=== PATIENT | male | born 1945 | race Caucasian/White ===

== ENCOUNTER 2018-06-21 20:33 | Emergency (ER) | payer MEDICARE, OTHER ==
--- NOTE | 2018-06-22 00:34 | ER Document Report ---
ED Medical Screen (RME) - General Chief Complaint: Abdominal Pain Stated Complaint: ABDOMINAL PAIN, DIFFICULTY BREATHING Time Seen by Provider: 06/22/18 00:23 Primary Care Provider: JANA HERNANDEZ DO [Primary Care Provider] - Follow up as needed Notes: 73-year-old male, chief complaint of mid to lower abdominal pain on both sides. He also had a fever of 100.6 at home. In addition to this he has had a cough which he has been trying to get over for 1 month. He has had an appendectomy, no other abdominal surgeries. TRAVEL OUTSIDE OF THE [place] IN LAST 30 DAYS: No - Related Data Allergies/Adverse Reactions: No Known Allergies Allergy (Unverified 06/21/18 20:35) Physical Exam - Vital signs Vitals: Temp Pulse Resp BP Pulse Ox 99.1 F 97 20 142/93 H 95 06/21/18 21:02 06/21/18 21:02 06/21/18 21:02 06/21/18 21:02 06/21/18 21:02 - Abdominal Tenderness: Tender - Mid to lower abdominal tenderness bilaterally. No guarding or rigidity. Course - Re-evaluation Re-evalutation: Patient has generalized mid to lower abdominal tenderness, no rigidity or overt guarding. CAT scan will be performed. Workup pending. Patient does not appear toxic. I have greeted and performed a rapid initial assessment of this patient. A comprehensive ED assessment and evaluation of the patient, analysis of test results and completion of the medical decision making process will be conducted by additional ED providers. - Vital Signs Vital signs: Temp Pulse Resp BP Pulse Ox 99.1 F 97 20 142/93 H 95 06/21/18 21:02 06/21/18 21:02 06/21/18 21:02 06/21/18 21:02 06/21/18 21:02 Doctor's Discharge - Discharge Referrals: JANA HERNANDEZ DO [Primary Care Provider] - Follow up as needed
[2018-06-22 01:21] LABS: ABSOLUTE LYMPHOCYTES (AUTO) 0.6 10^3/uL (0.5-4.7); ABSOLUTE MONOCYTES (AUTO) 0.7 10^3/uL (0.1-1.4); ABSOLUTE NEUT (AUTO) 9.3 10^3/uL (1.7-8.2); BASOPHILS % (AUTO) 0.3 % (0-2); EOSINOPHILS % (AUTO) 0.1 % (0-6); HEMATOCRIT 41.6 % (37.9-51.0); HEMOGLOBIN 14.6 g/dL (13.5-17.0); LYMPHOCYTES % (AUTO) 5.6 % (13-45); MEAN CORPUSCULAR HEMOGLOBIN 30.5 pg (27.0-33.4); MEAN CORPUSCULAR HGB CONC 35.1 g/dL (32.0-36.0); MEAN CORPUSCULAR VOLUME 87 fl (80-97); MONOCYTES % (AUTO) 6.3 % (3-13); PLATELET COUNT 156 10^3/uL (150-450); RED BLOOD COUNT 4.79 10^6/uL (4.35-5.55); RED CELL DISTRIBUTION WIDTH 14.3 % (11.5-14.0); SEGMENTED NEUTROPHILS % (AUTO) 87.7 % (42-78); TOTAL CELLS COUNTED % (AUTO) 100 %; WHITE BLOOD COUNT 10.5 10^3/uL (4.0-10.5)
[2018-06-22 01:50] LABS: ALANINE AMINOTRANSFERASE 39 U/L (21-72); ALBUMIN 3.7 g/dL (3.5-5.0); ALKALINE PHOSPHATASE 94 U/L (38-126); ANION GAP 9 (5-19); ASPARTATE AMINO TRANSFERASE 33 U/L (17-59); BILIRUBIN,DIRECT 0.3 mg/dL (0.0-0.4); BLOOD UREA NITROGEN 21 mg/dL (7-20); CALCIUM 9.6 mg/dL (8.4-10.2); CARBON DIOXIDE 25 mmol/L (22-30); CHLORIDE 95 mmol/L (98-107); GLUCOSE 106 mg/dL (75-110); LIPASE 95.8 U/L (23-300); POTASSIUM 4.6 mmol/L (3.6-5.0); SODIUM 129.1 mmol/L (137-145); TOTAL PROTEIN 6.5 g/dL (6.3-8.2)
--- NOTE | 2018-06-22 02:13 | RADIOLOGY REPORT (SQ) ---
CLINICAL HISTORY: cough x1 month, fever COMPARISON: None. TECHNIQUE: XR CHEST 2 VIEWS 06/22/2018 12:31 AM CDT FINDINGS: Cardiac silhouette is normal in size. Lungs are clear without consolidation, atelectasis, mass or edema. There is no pleural effusion. There is no pneumothorax. There are no acute osseous findings. IMPRESSION: Clear lungs.
--- NOTE | 2018-06-22 02:22 | RADIOLOGY REPORT (SQ) ---
CT abdomen and pelvis with contrast on 06/22/2018 at 1:58 AM CLINICAL INDICATION: Lower abdominal pain, fever TECHNIQUE: Multiple axial images are obtained throughout the abdomen and pelvis following the administration of IV contrast, 100 mL of Omnipaque 350 contrast was administered intravenously without complication. This exam was performed according to our departmental dose-optimization program, which includes automated exposure control, adjustment of the mA and/or kV according to patient size and/or use of iterative reconstruction technique. Total DLP is 835.08 mGy*cm. COMPARISON: None FINDINGS: Abdomen: Emphysematous changes are noted in the lung bases. There is mild linear atelectasis or scarring in the lung bases. Minimal right-sided gynecomastia is noted. The solid abdominal organs are unremarkable. Vascular calcifications are noted. There is no abdominal adenopathy. There is no free fluid or free air within the abdomen. GI tract is relatively fluid filled that may be related to a gastroenteritis. The abdominal portion of the GI tract is otherwise unremarkable. Pelvis: There is no free fluid in the pelvis. The appendix is not visualized but no pericecal inflammatory changes are noted. Pelvic portion of the GI tract is otherwise unremarkable. There is no pelvic adenopathy. Degenerative changes are noted in the spine. No acute bony abnormality is noted. IMPRESSION: 1. Relatively fluid filled GI tract that may be related to a gastroenteritis. 2. Otherwise no acute abnormality.
[2018-06-22] MEDS ORDERED: MORPHINE SULFATE 10 MG/ML INJ IV ONE (03:44)
[2018-06-22] MEDS ORDERED: ONDANSETRON HCL INJ/PF 4 MG/2 ML SDV IV ONE (03:44)
[2018-06-22] MEDS ORDERED: NORMAL SALINE 1000 ML 1,000 ML IV ONE (03:45)
[2018-06-22 04:35] LABS: APPEARANCE,URINE CLEAR; BILIRUBIN,URINE NEGATIVE (NEGATIVE); COLOR,URINE YELLOW; GLUCOSE, URINE NEGATIVE (NEGATIVE); KETONES,URINE NEGATIVE (NEGATIVE); LEUKOCYTE ESTERASE,URINE NEGATIVE (NEGATIVE); NITRITE,URINE NEGATIVE (NEGATIVE); PROTEIN,URINE NEGATIVE (NEGATIVE); URINE SPECIFIC GRAVITY 1.051; UROBILINOGEN,URINE NEGATIVE mg/dL (<2.0)
--- NOTE | 2018-06-22 05:30 | ER Document Report ---
ED GI/ - General Chief Complaint: Abdominal Pain Stated Complaint: ABDOMINAL PAIN, DIFFICULTY BREATHING Time Seen by Provider: 06/22/18 00:23 Primary Care Provider: JANA HERNANDEZ DO [NO LOCAL MD] - Follow up as needed TRAVEL OUTSIDE OF THE [place] IN LAST 30 DAYS: No - HPI Notes: 06/22/18 05:27 Patient complaints of body aches and joint pain that started 3 days ago. Patient was feeling better until 2 days ago when he developed mid to upper abdominal pain. Denies diarrhea. Patient reports nausea and vomiting 2 times today. She reports decreased appetite but until tonight has been tolerating p.o.. Patient reports that the abdominal pain is sharp and stabbing in nature and has remained constant. Also reports chills. Patient states that he has also been battling cough for the past month which he saw his primary care provider for and was placed on 2 different antibiotics and a steroid. He states that he did not feel much different after receiving his medications. - Related Data Allergies/Adverse Reactions: No Known Allergies Allergy (Unverified 06/21/18 20:35) Past Medical History - Social History Smoking Status: Former Smoker Chew tobacco use (# tins/day): No Frequency of alcohol use: Occasional Drug Abuse: None Lives with: Spouse/Significant other Family History: None Patient has suicidal ideation: No Patient has homicidal ideation: No - Past Medical History Cardiac Medical History: Reports: Hx Hypercholesterolemia, Hx Hypertension Renal/ Medical History: Denies: Hx Peritoneal Dialysis Skin Medical History: Reports None Past Surgical History: Reports: Hx Appendectomy, Hx Tonsillectomy Review of Systems - Review of Systems Constitutional: Chills, Fever, Malaise EENT: Nose congestion Cardiovascular: No symptoms reported Respiratory: Cough Gastrointestinal: Abdominal pain, Nausea, Vomiting Genitourinary: No symptoms reported Male Genitourinary: No symptoms reported Musculoskeletal: Joint pain Skin: No symptoms reported Hematologic/Lymphatic: No symptoms reported Neurological/Psychological: No symptoms reported Physical Exam - Vital signs Vitals: Temp Pulse Resp BP Pulse Ox 99.1 F 97 20 142/93 H 95 06/21/18 21:02 06/21/18 21:02 06/21/18 21:02 06/21/18 21:02 06/21/18 21:02 Interpretation: Normal - General In distress: Moderate - Respiratory Respiratory status: No respiratory distress Chest status: Nontender Breath sounds: Normal Chest palpation: Normal - Cardiovascular Rhythm: Regular Heart sounds: Normal auscultation - Abdominal Inspection: Normal Distension: No distension Bowel sounds: Hyperactive Tenderness: Tender - Tender noted throughout entire abdomen, very nonspecific Organomegaly: No organomegaly - Skin Skin Temperature: Warm Skin Moisture: Dry Skin Color: Normal Skin Turgor: Elastic Course - Re-evaluation Re-evalutation: 06/22/18 05:36 After reassessment patient does report that his pain level has decreased to about a 2 out of 5. Patient requesting a beverage and saltine crackers. Abdomen is mildly tender throughout. Pt. denies chest pain or shortness of breath. P.O. challenge initiated. 06/22/18 06:32 Patient was able to tolerate p.o. challenge without increased abdominal pain or vomiting. Blood work and radiology tests discussed with patient and by myself and Greg Varner PA-C. Discussed with patient diagnosis of gastr oenteritis, will prescribe Zofran and Pepcid. Patient okay taking Tylenol [id number] at home for discomfort. Advised to start with clear liquid diet then advance to a bland diet and a regular diet as tolerated. Strict return precautions given to include severe abdominal pain, abdominal swelling, fever, rectal bleeding, uncontrollable vomiting, inability to tolerate p.o. and worsening of symptoms. Patient and verbalized understanding and agrees with plan. Patient feels comfortable being discharged. Per further discussion reports that other members of the family have recently had GI symptoms similar to his. 06/22/18 06:52 Patient did have left bundle branch block on EKG. Reassessment patient verified that he has not been having any chest pain chest pressure or discomfort. Reports that all of his discomfort is in the abdomen. - Vital Signs Vital signs: Temp Pulse Resp BP Pulse Ox 99.1 F 97 20 142/93 H 95 06/21/18 21:02 06/21/18 21:02 06/21/18 21:02 06/21/18 21:02 06/21/18 21:02 - Laboratory Result Diagrams: 06/22/18 00:50 06/22/18 00:50 Laboratory results interpreted by me: 06/22/18 06/22/18 06/22/18 00:50 00:50 04:15 RDW 14.3 H Seg Neutrophils % 87.7 H Lymphocytes % 5.6 L Absolute Neutrophils 9.3 H Sodium 129.1 L Chloride 95 L BUN 21 H Creatinine 1.29 H Est GFR (Non-Af Amer) 55 L Urine Blood SMALL H - Diagnostic Test Radiology reviewed: Reports reviewed Radiology results interpreted by me: 06/22/18 05:42 Chest x-ray unremarkable, lungs are clear without consolidation or atelectasis, mass or edema. No pleural effusion or pneumonia thorax noted. 06/22/18 05:44 CT of the abdomen showed no free fluid in the pelvis and although the appendix was not visualized there were no pericecal inflammatory changes per radiology read. CT of the abdomen showed relatively fluid-filled GI tract that may be related to gastroenteritis. - EKG Interpretation by Me Additional EKG results interpreted by me: 06/22/18 05:39 EKG shows a normal sinus rhythm with a left bundle branch block, rate is 96, OK is 148, QRS is 122, QT 392, QTc 496. No ST elevation. Discharge - Discharge Clinical Impression: Gastroenteritis Condition: Stable Disposition: HOME, SELF-CARE Instructions: Abdominal Pain ([facility]), Antinausea Medication ([facility]), Intravenous (IV) Fluids ([facility]), Vomiting ([facility]), Gastroenteritis (adult) ([facility]) Additional Instructions: Today you are being diagnosed with gastroenteritis. Initially while you are feeling ill start out with a clear liquid diet. Take Zofran as needed for nausea. Take Pepcid as prescribed. Your symptoms may last a few days. If they become worse and include but not limited to severe abdominal pain, vomiting, rectal bleeding, abdominal swelling, fever, or any new or worsening symptoms please return to the emergency department for further evaluation. Please avoid NSAIDs such as ibuprofen, Motrin, Aleve, etc. as NSAIDs can upset your stomach. Prescriptions: Famotidine [Pepcid 20 mg Tablet] 20 mg PO DAILY #12 tablet Ondansetron [Zofran Odt 4 mg Tablet] 1 tab PO Q4H PRN #15 tab.rapdis PRN Reason: For Nausea/Vomiting Referrals: JANA HERNANDEZ DO [NO LOCAL MD] - Follow up as needed
[2018-06-22 07:05] VITALS: BP 151/70
--- NOTE | 2018-06-23 11:02 | EKG REPORT ---
SEVERITY:- ABNORMAL ECG - SINUS RHYTHM LEFT BUNDLE BRANCH BLOCK : Confirmed by: Anshul Drake 23-Jun-2018 11:01:28
== END 2018-06-22 07:34 | disposition home or self-care (01) ==
LOC: ER 20:33
DX: K52.9 Noninfective gastroenteritis and colitis, unspecified (principal); R10.10 Upper abdominal pain, unspecified; M79.10 Myalgia, unspecified site; R50.9 Fever, unspecified; R53.81 Other malaise; E78.00 Pure hypercholesterolemia, unspecified; I10 Essential (primary) hypertension
CPT/HCPCS: 93005; 99284; 96361; 96374; 96375; 36415; 87040; 83690; 85025; 80053; 81001; 71046; 74177; 93010; J2270; J2405; J7030

== ENCOUNTER 2018-07-01 21:31 | Emergency (ER) | payer OTHER, MEDICARE ==
[2018-07-01] MEDS ORDERED: IPRATROPIUM/ALBUTEROL 0.5-2.5 MG/3 ML AMPUL NEB ONE ×2 (22:22→23:09)
[2018-07-01] MEDS ORDERED: METHYLPREDNISOLONE INJ 125 MG/2 ML SDV IV ONE (22:30)
[2018-07-01] MEDS ORDERED: ALBUTEROL SULFATE 0.083% NEB 2.5 MG/3 ML AMPUL NEB ONE (22:31)
--- NOTE | 2018-07-01 22:35 | ER Document Report ---
ED General - General Chief Complaint: Shortness Of Breath Stated Complaint: DIFFICULTY BREATHING Time Seen by Provider: 07/01/18 22:20 Primary Care Provider: CLEMENT PARSON DO [Primary Care Provider] - Follow up as needed Notes: Patient is a 73-year-old male presents with complaint of difficulty breathing. He says he denies her having some wheezing difficulty breathing. He says he quit smoking 3 months ago and since then he has had several episodes like this where he has difficulty breathing and sometimes has come to the hospital. No fevers. No vomiting. No chest pain. No leg pain or swelling. No other c omplaints at this time. Patient has history of hypertension, high cholesterol, and back problems. TRAVEL OUTSIDE OF THE [place] IN LAST 30 DAYS: No - Related Data Allergies/Adverse Reactions: No Known Allergies Allergy (Unverified 06/21/18 20:35) Past Medical History - Social History Smoking Status: Former Smoker Frequency of alcohol use: None Drug Abuse: None Family History: None - Past Medical History Cardiac Medical History: Reports: Hx Hypercholesterolemia, Hx Hypertension Renal/ Medical History: Denies: Hx Peritoneal Dialysis Past Surgical History: Reports: Hx Appendectomy, Hx Tonsillectomy Review of Systems - Review of Systems Notes: My Normal Review Basic REVIEW OF SYSTEMS: CONSTITUTIONAL : Denies fever, chills, or sweats. Denies recent illness. EENT: Denies eye, ear, throat, or mouth pain or symptoms. Denies nasal or sinus congestion. CARDIOVASCULAR: Denies chest pain. RESPIRATORY: Wheezing, difficulty breathing, cough GASTROINTESTINAL: Denies abdominal pain. Denies nausea, vomiting, or diarrhea. MUSCULOSKELETAL: Denies neck or back pain or joint pain or swelling. SKIN: Denies rash or skin lesions. NEUROLOGICAL: Denies altered mental status or loss of consciousness. Denies headache. Denies weakness or paralysis or loss of use of either side. Denies problems with gait or speech. Denies sensory or motor loss. ALL OTHER SYSTEMS REVIEWED AND NEGATIVE. Physical Exam - Vital signs Vitals: Temp Pulse Resp BP Pulse Ox 98.2 F 113 H 24 H 147/77 H 94 07/01/18 21:48 07/01/18 21:48 07/01/18 21:48 07/01/18 21:48 07/01/18 21:48 - Notes Notes: General Appearance: Well nourished, alert, cooperative, mild acute distress, no obvious discomfort. Vitals: reviewed, See vital signs table. Head: no swelling or tenderness to the head Eyes: PERRL, EOMI, Conjuctiva clear Mouth: No decreasd moisture Throat: No tonsillar inflammation, No airway obstruction, No lymphadenopathy Neck: Supple, no neck tenderness, No thyromegaly Lungs: Few's wheezing, No rales, No rhonci, No accessory muscle use, fair air exchange bilaterally. Heart: Normal rate, Regular rythm, No murmur, no rub Abdomen: Normal BS, soft, No rigidity, No abdominal tenderness, No guarding, no rebound, no abdominal masses, no organomegaly Extremities: good pulses in all extremities, no edema. Skin: warm, dry, appropriate color, no rash Neuro: speech clear, oriented x 3, normal affect, responds appropriately to questions. Course - Re-evaluation Re-evalutation: 07/01/18 23:44 On reevaluation patient is looking improved. His wheezing is gone. We will monitor him for low bit longer to make sure that his wheezing does not return and that he continues to do well. Patient is agreeable with this plan. 07/02/18 00:50 Patient continues to do well. Lung valdez are clear. He has no tachypnea. No increased work of breathing. Oxygen saturations normal on room air. I feel he is safe to be discharged home. I encouraged him return to ER immediately if he has recurrent difficulty breathing, wheezing not responding to inhaler, fevers, or if he feels unwell. Patient agrees with plan will be discharged home. Dictation of this chart was performed using voice recognition software; therefore, there may be some unintended grammatical errors. - Vital Signs Vital signs: Temp Pulse Resp BP Pulse Ox 98.2 F 113 H 16 125/110 H 93 07/01/18 21:50 07/01/18 21:50 07/01/18 23:01 07/01/18 23:01 07/01/18 23:01 Discharge - Discharge Clinical Impression: Dyspnea Qualifiers: Dyspnea type: unspecified Qualified Code(s): R06.00 - Dyspnea, unspecified COPD (chronic obstructive pulmonary disease) Qualifiers: COPD type: unspecified COPD Qualified Code(s): J44.9 - Chronic obstructive pulmonary disease, unspecified Condition: Good Disposition: HOME, SELF-CARE Additional Instructions: Please continue to do well with not smoking. This is important. Eventually your lungs will start to improve and the recurrent wheezing will happen less and less often. I prescribed you prednisone. This helps reduce inflammation in her lungs and hopefully will not be wheezing is much and not have to use your in haler as often. Please return to the ER immediately if you have recurrent wheezing not responding to inhaler, difficulty breathing, fevers, or feel that you are worsening in any way. Prescriptions: Prednisone [Deltasone 20 mg Tablet] 3 tab PO DAILY 4 Days tablet Referrals: CLEMENT PARSON DO [Primary Care Provider] - Follow up in 3-5 days
[2018-07-01] MEDS: MAGNESIUM SULFATE/D5W 1 GM/100 ML RTUPB IV SCH ×2 (22:53→23:05)
--- NOTE | 2018-07-01 23:02 | RADIOLOGY REPORT (SQ) ---
EXAM DESCRIPTION: XR CHEST 1 VIEW COMPLETED DATE/TME: 07/01/2018 22:31 CLINICAL HISTORY: 73 years, Male, dyspnea COMPARISON: 06/22/2018 chest NUMBER OF VIEWS: 2 TECHNIQUE: AP chest LIMITATIONS: None. FINDINGS: The heart size is normal. Minor scarring left lung base. Underlying COPD. Mild atheromatous change thoracic aorta. No pneumothorax IMPRESSION: COPD. No acute cardiopulmonary process copyright 2010 [employer]- All Rights Reserved
[2018-07-02 00:58] VITALS: BP 117/60
== END 2018-07-02 01:05 | disposition home or self-care (01) ==
LOC: ER 21:31
DX: J44.9 Chronic obstructive pulmonary disease, unspecified (principal); Z87.891 Personal history of nicotine dependence; I10 Essential (primary) hypertension
CPT/HCPCS: 94640 ×2; 99284; 96374; 96375; 71045; J2930; J3475; J7620

== ENCOUNTER 2018-07-16 23:06 | Emergency (ER) | payer OTHER, MEDICARE ==
[2018-07-16 23:26] VITALS: BP 138/74
--- NOTE | 2018-07-16 23:53 | ER Document Report ---
ED General - General Chief Complaint: Shortness Of Breath Stated Complaint: DIFFICULTY BREATHING Time Seen by Provider: 07/16/18 23:52 Notes: Patient is a pleasant 73-year-old male presents with complaint of wheezing and some difficulty breathing. Patient has a history of emphysema. He quit smoking back in March. Has had some recurrent issues with difficulty breathing is been seen here in the past by me. He denies any fevers. He said this morning he did have a little bit chest tightness but that has since resolved. He denies any actual chest pain. He has no other complaints at this time. TRAVEL OUTSIDE OF THE [place] IN LAST 30 DAYS: No - Related Data Allergies/Adverse Reactions: No Known Allergies Allergy (Verified 07/16/18 23:25) Past Medical History - Social History Smoking Status: Former Smoker Frequency of alcohol use: None Drug Abuse: None Family History: None - Past Medical History Cardiac Medical History: Reports: Hx Hypercholesterolemia, Hx Hypertension Renal/ Medical History: Denies: Hx Peritoneal Dialysis Past Surgical History: Reports: Hx Appendectomy, Hx Tonsillectomy Review of Systems - Review of Systems Notes: My Normal Review Basic REVIEW OF SYSTEMS: CONSTITUTIONAL : Denies fever, chills, or sweats. Denies recent illness. EENT: Denies eye, ear, throat, or mouth pain or symptoms. Denies nasal or sinus congestion. CARDIOVASCULAR: Denies chest pain. Had some chest tightness RESPIRATORY: Difficulty breathing GASTROINTESTINAL: Denies abdominal pain. Denies nausea, vomiting, or diarrhea. MUSCULOSKELETAL: Denies neck or back pain or joint pain or swelling. SKIN: Denies rash or skin lesions. NEUROLOGICAL: Denies altered mental status or loss of consciousness. Denies headache. Denies weakness or paralysis or loss of use of either side. Denies problems with gait or speech. Denies sensory or motor loss. ALL OTHER SYSTEMS REVIEWED AND NEGATIVE. Physical Exam - Vital signs Vitals: Temp Pulse Resp BP Pulse Ox 97.7 F 98 22 H 138/74 H 94 07/16/18 23:19 07/16/18 23:19 07/16/18 23:19 07/16/18 23:19 07/16/18 23:19 - Notes Notes: General Appearance: Well nourished, alert, cooperative, mild acute distress, no obvious discomfort. Vitals: reviewed, See vital signs table. Eyes: PERRL, EOMI, Conjuctiva clear Mouth: No decreasd moisture Lungs: Fair air exchange. Some scattered wheezing. Heart: Normal rate, Regular rythm, No murmur, no rub Abdomen: Normal BS, soft, No rigidity, No abdominal tenderness, No guarding, no rebound, no abdominal masses, no organomegaly Extremities: good pulses in all extremities, no swelling or tenderness in the extremities, no edema. Skin: warm, dry, appropriate color, no rash Neuro: speech clear, oriented x 3, normal affect, responds appropriately to questions. Course - Re-evaluation Re-evalutation: 07/17/18 02:07 Patient's dyspnea completely resolved with one breathing treatment. Chest x-ray is read as bilateral bibasilar infiltrates however I do not see much of an infiltrative process when I review his chest x-ray when compared to his previous chest x-ray it looks pretty much exactly the same. He has no fevers. Do not suspect pneumonia and do not think he needs to be on antibiotic. The nebulizer treatments here always seem to help him significantly. I will prescribe him nebulizer to use at home. He has a follow-up appoint with his doctor tomorrow. I strongly encouraged him return to ER if he has fevers, difficulty breathing, wheezing not responding to his inhaler, or if he feels that he is worsening in any way. Troponin was drawn because the patient said he had some slight chest tightness earlier in the morning. He denied ever having chest pain. Troponin was negative. His EKG shows left bundle branch block which is unchanged from previously. I suspect the tightness was related to the difficulty breathing from his COPD. Dictation of this chart was performed using voice recognition software; therefore, there may be some unintended grammatical errors. - Vital Signs Vital signs: Temp Pulse Resp BP Pulse Ox 97.7 F 98 20 138/74 H 94 07/16/18 23:19 07/16/18 23:19 07/17/18 01:00 07/16/18 23:19 07/17/18 01:00 - EKG Interpretation by Me Additional EKG results interpreted by me: 07/16/18 23:53 EKG is reviewed and interpreted by me. EKG shows sinus rhythm with rate of [address] segment changes. Patient does have a left bundle branch block which is unchanged comparison to his previous EKG from June 22, 2017. MO interval is within normal range. QRS duration and QT intervals are prolonged. Discharge - Discharge Clinical Impression: COPD exacerbation Condition: Good Disposition: HOME, SELF-CARE Additional Instructions: Please use either your inhaler or the nebulizer every 2-4 hours as needed for wheezing or difficulty breathing. Please follow-up with your doctor on Wednesday as scheduled. Please return to the ER immediately if you have worsening difficulty breathing not responding to inhaler, fevers, wheezing not responding to inhaler, or if you feel that you are worsening in any way. Prescriptions: Albuterol Sulfate [Ventolin 0.083% Neb 2.5 mg/3 mL Ampul] 1 vial NEB Q4 PRN #30 vial PRN Reason: wheezing Nebulizer [Nebulizer Machine] 1 each MC ASDIR PRN #1 kit PRN Reason:
[2018-07-16] MEDS ORDERED: IPRATROPIUM/ALBUTEROL 0.5-2.5 MG/3 ML AMPUL NEB ONE (23:56)
[2018-07-16] MEDS ORDERED: PREDNISONE 20 MG TABLET PO ONE (23:56)
--- NOTE | 2018-07-17 00:46 | RADIOLOGY REPORT (SQ) ---
EXAM DESCRIPTION: XR CHEST 2 VIEWS COMPLETED DATE/TME: 07/16/2018 23:58 CLINICAL HISTORY: 73 years, Male, dyspnea COMPARISON: 07/01/2018 chest NUMBER OF VIEWS: 2 TECHNIQUE: 2 view chest LIMITATIONS: None. FINDINGS: Heart size normal. Underlying COPD. Patchy bibasilar infiltrates. No pneumothorax. Osteopenia IMPRESSION: COPD. Patchy bibasilar infiltrates copyright 2010 [employer]- All Rights Reserved
--- NOTE | 2018-07-17 22:51 | EKG REPORT ---
SEVERITY:- ABNORMAL ECG - SINUS RHYTHM LEFT BUNDLE BRANCH BLOCK : Confirmed by: Anshul Drake 17-Jul-2018 22:50:52
== END 2018-07-17 02:15 | disposition home or self-care (01) ==
LOC: ER 23:06
DX: J43.9 Emphysema, unspecified (principal); I44.7 Left bundle-branch block, unspecified; I10 Essential (primary) hypertension; Z87.891 Personal history of nicotine dependence
CPT/HCPCS: 93005; 94640; 99285; 36415; 84484; 71046; 93010; J7512; J7620

== ENCOUNTER 2018-08-26 06:54 | Emergency (ER) | payer OTHER, MEDICARE ==
--- NOTE | 2018-08-26 10:09 | RADIOLOGY REPORT (SQ) ---
EXAM DESCRIPTION: CHEST SINGLE VIEW COMPLETED DATE/TIME: 08/26/2018 9:58 am REASON FOR STUDY: cough COMPARISON: 07/17/2018 NUMBER OF VIEWS: One view. TECHNIQUE: Single frontal radiographic view of the chest acquired. LIMITATIONS: None. FINDINGS: LUNGS AND PLEURA: There is hyperexpansion. No consolidation or effusions. No pneumothora x. MEDIASTINUM AND HILAR STRUCTURES: No masses. Contour normal. HEART AND VASCULAR STRUCTURES: Heart normal in size. Normal vasculature. BONES: No acute findings. HARDWARE: None in the chest. OTHER: No other significant finding. IMPRESSION: Hyperexpansion. No other significant findings. TECHNICAL DOCUMENTATION: JOB ID: [id number] [employer]- All Rights Reserved Reading location - IP/workstation name: [email or web address]
[2018-08-26] MEDS ORDERED: IPRATROPIUM/ALBUTEROL 0.5-2.5 MG/3 ML AMPUL NEB ONE ×2 (10:12→11:36)
[2018-08-26] MEDS ORDERED: BENZONATATE 100 MG CAPSULE PO ONE (10:12)
[2018-08-26] MEDS ORDERED: METHYLPREDNISOLONE INJ 125 MG/2 ML SDV IV ONE (10:12)
[2018-08-26 10:26] LABS: ABSOLUTE MONOCYTES (AUTO) 0.6 10^3/uL (0.1-1.4); HEMOGLOBIN 12.9 g/dL (13.5-17.0); SEGMENTED NEUTROPHILS % (AUTO) 69.7 % (42-78); TOTAL CELLS COUNTED % (AUTO) 100 %
[2018-08-26] MEDS: MAGNESIUM SULFATE/D5W 1 GM/100 ML RTUPB IV SCH ×2 (10:30→11:38)
--- NOTE | 2018-08-26 10:34 | ER Document Report ---
Entered by VERENICE MULLIGAN SCRIBE 08/26/18 1017 Acting as scribe for:ANGELA ANTOINE MD ED Respiratory Problem - General Chief Complaint: Painful Cough Stated Complaint: COUGH, TIGHT CHEST, TROUBLE BREATHING Time Seen by Provider: 08/26/18 10:05 Primary Care Provider: CLEMENT PARSON DO [Primary Care Provider] - Follow up as needed Mode of Arrival: Ambulatory Information source: Patient, Relative - Notes: 73-year-old male with an extensive smoking history that presents today with complaints of shortness of breath, wheezing, and a cough for the last x3 days. Patient states he was on prednisone recently, finishing the prescription approximately x10 days ago. Patient states initially his cough was productive, bringing up a "glue or paste" looking sputum but has been nonproductive since last night. Patient states he used x3 breathing treatments overnight last night which helped but only briefly. Patient is not on home oxygen. The patient has a new patient appointment with Dr. Brothers on 09/05/2018. He does have albuterol for his nebulizer at home, has never been prescribed Atrovent. TRAVEL OUTSIDE OF THE [place] IN LAST 30 DAYS: No - Related Data Allergies/Adverse Reactions: No Known Allergies Allergy (Verified 07/16/18 23:25) Past Medical History - General Information source: Patient - Social History Smoking Status: Former Smoker - Quit March 2018 Frequency of alcohol use: None Drug Abuse: None Lives with: Spouse/Significant other Family History: None - Past Medical History Cardiac Medical History: Reports: Hx Hypercholesterolemia, Hx Hypertension Pulmonary Medical History: Reports: Hx COPD Past Surgical History: Reports: Hx Appendectomy, Hx Tonsillectomy Review of Systems - Review of Systems Constitutional: No symptoms reported EENT: No symptoms reported Cardiovascular: No symptoms reported Respiratory: See HPI, Cough, Short of breath, Sputum, Wheezing Gastrointestinal: No symptoms reported Genitourinary: No symptoms reported Male Genitourinary: No symptoms reported Musculoskeletal: No symptoms reported Skin: No symptoms reported Hematologic/Lymphatic: No symptoms reported Neurological/Psychological: No symptoms reported -: Yes All other systems reviewed and negative Physical Exam - Vital signs Vitals: Temp Pulse Resp BP Pulse Ox 97.5 F 91 18 147/78 H 95 08/26/18 07:02 08/26/18 07:02 08/26/18 07:02 08/26/18 07:02 08/26/18 07:02 - Notes Notes: Physical Exam: General: Alert, appears well. 96% room air oxygen saturation on bedside monitor. HEENT: Normocephalic. Atraumatic. PERRL. Extraocular movements intact. Oropharynx clear. Neck: Supple. Non-tender. Respiratory: Mild tachypnea. Faint distant wheezing bilaterally. Expiratory rhonchi. Cardiovascular: Regular rate and rhythm. Abdominal: Normal Inspection. Non-tender. No distension. Normal Bowel Sounds. Back: Non-tender. No deformity or step off. Extremities: Moves all four extremities. Upper extremities: Normal inspection. Normal ROM. Lower extremities: Normal inspection. No edema. Normal ROM. Neurological: Normal cognition. AAOx4. Normal speech. Psychological: Normal affect. Normal Mood. Skin: Warm. Dry. Normal color. Course - Vital Signs Vital signs: Temp Pulse Resp BP Pulse Ox 97.5 F 91 27 H 113/67 96 08/26/18 07:02 08/26/18 07:02 08/26/18 12:01 08/26/18 12:01 08/26/18 12:01 - Laboratory Result Diagrams: 08/26/18 10:00 08/26/18 10:00 Laboratory results interpreted by me: 08/26/18 08/26/18 10:00 10:00 RBC 4.24 L Hgb 12.9 L Hct 36.4 L RDW 14.9 H Eosinophils % 7.0 H Sodium 128.4 L Chloride 93 L Creatine Kinase 283 H - Diagnostic Test Radiology reviewed: Image reviewed, Reports reviewed - Chest x-ray shows hyperexpansion with no other abnormalities. - EKG Interpretation by Mo EKG shows normal: Sinus rhythm, [place], Intervals, QRS Complexes, ST-T Waves Rate: Normal - 83 Rhythm: NSR [place]/QRS: LBBB When compared to previous EKG there are: No significant change Discharge - Discharge Clinical Impression: COPD with exacerbation Condition: Stable Disposition: HOME, SELF-CARE Additional Instructions: Start the prednisone as prescribed tomorrow. You have had today's dose here in the emergency room. Use the Atrovent solution in your nebulizer every 4 hours. You may combine it with albuterol. Drink plenty of fluids and get plenty of rest. Follow-up with your primary care provider if not improving. RETURN TO THE EMERGENCY ROOM IF ANY NEW OR WORSENING SYMPTOMS. Prescriptions: Benzonatate [Tessalon Perles 100 mg Capsule] 100 mg PO ASDIR PRN #50 capsule PRN Reason: Ipratropium [place] [Atrovent 0.02% Neb 0.5 mg/2.5 ml Ampul] 0.5 mg NEB Q4 PRN #50 vial.neb PRN Reason: Prednisone [Deltasone 10 mg Tablet] 10 mg PO ASDIR PRN #21 tablet PRN Reason: Referrals: CLEMENT PARSON DO [Primary Care Provider] - Follow up as needed Scribe Attestation: 08/26/18 10:54 I personally performed the services described in the documentation, reviewed and edited the documentation which was dictated to the scribe in my presence, and it accurately records my words and actions. I personally performed the services described in the documentation, reviewed and edited the documentation which was dictated to the scribe in my presence, and it accurately records my words and actions.
[2018-08-26 10:35] LABS: ABSOLUTE BASOPHILS # (AUTO) 0.1 10^3/uL (0.0-0.2); ABSOLUTE EOSINOPHILS # (AUTO) 0.5 10^3/uL (0.0-0.6); ABSOLUTE NEUT (AUTO) 4.8 10^3/uL (1.7-8.2); BASOPHILS % (AUTO) 0.8 % (0-2); HEMATOCRIT 36.4 % (37.9-51.0); LYMPHOCYTES % (AUTO) 14.2 % (13-45); MEAN CORPUSCULAR HEMOGLOBIN 30.5 pg (27.0-33.4); MEAN CORPUSCULAR HGB CONC 35.5 g/dL (32.0-36.0); MEAN CORPUSCULAR VOLUME 86 fl (80-97); MONOCYTES % (AUTO) 8.3 % (3-13); PLATELET COUNT 258 10^3/uL (150-450); RED BLOOD COUNT 4.24 10^6/uL (4.35-5.55); RED CELL DISTRIBUTION WIDTH 14.9 % (11.5-14.0); WHITE BLOOD COUNT 6.9 10^3/uL (4.0-10.5)
[2018-08-26 10:47] LABS: ALANINE AMINOTRANSFERASE 31 U/L (21-72); ALBUMIN 3.9 g/dL (3.5-5.0); ALKALINE PHOSPHATASE 108 U/L (38-126); ANION GAP 10 (5-19); ASPARTATE AMINO TRANSFERASE 26 U/L (17-59); BILIRUBIN,DIRECT 0.2 mg/dL (0.0-0.4); BLOOD UREA NITROGEN 18 mg/dL (7-20); CALCIUM 9.4 mg/dL (8.4-10.2); CARBON DIOXIDE 25 mmol/L (22-30); CHLORIDE 93 mmol/L (98-107); CREATINE KINASE 283 U/L (55-170); GLUCOSE 101 mg/dL (75-110); POTASSIUM 4.5 mmol/L (3.6-5.0); SODIUM 128.4 mmol/L (137-145); TOTAL PROTEIN 6.6 g/dL (6.3-8.2)
[2018-08-26] MEDS ORDERED: ALBUTEROL SULFATE 0.083% NEB 2.5 MG/3 ML AMPUL NEB ONE (10:51)
[2018-08-26 10:59] LABS: CREATINE KINASE MB 2.49 ng/mL (<4.55)
[2018-08-26 11:04] LABS: TROPONIN I < 0.012 ng/mL
[2018-08-26] MEDS ORDERED: PREDNISONE 20 MG TABLET PO ONE (11:37)
[2018-08-26 13:46] VITALS: BP 126/63
--- NOTE | 2018-08-26 18:36 | EKG REPORT ---
SEVERITY:- ABNORMAL ECG - SINUS RHYTHM LEFT BUNDLE BRANCH BLOCK : Confirmed by: Bradford Mena MD 26-Aug-2018 18:35:14
== END 2018-08-26 13:47 | disposition home or self-care (01) ==
LOC: ER 06:54
DX: J44.1 Chronic obstructive pulmonary disease with (acute) exacerbation (principal); I44.7 Left bundle-branch block, unspecified; R06.02 Shortness of breath; R05 Cough; I10 Essential (primary) hypertension; Z87.891 Personal history of nicotine dependence
CPT/HCPCS: 93005; 94640 ×2; 99284; 96375; 96365; 96366; 36415; 82553; 82550; 85025; 80053; 84484; 71045; 93010; J2930; J3475; J7512; J7620

== ENCOUNTER → 2018-10-12 | Outpatient (CLI) | payer MEDICARE, OTHER ==
--- NOTE | 2018-10-12 11:14 | RADIOLOGY REPORT (SQ) ---
EXAM DESCRIPTION: CT CHEST WITHOUT COMPLETED DATE/TIME: 10/12/2018 10:09 am REASON FOR STUDY: CHRONIC OBSTRUCTIVE PULMONARY DISEASE, UNSPECIFIED J44.9 CHRONIC OBSTRUCTIVE PULM ONARY DISEASE, UNSPECIFIED R91.1 SOLITARY PULMONARY NODULE COMPARISON: Chest x-ray 08/26/2018 TECHNIQUE: CT scan performed of the chest without intravenous contrast. Images reviewed with lung, soft tissue and bone windows. Reconstructed coronal and sagittal MPR images reviewed. All images st ored on PACS. All CT scanners at this facility use dose modulation, iterative reconstruction, and/or weight based d osing when appropriate to reduce radiation dose to as low as reasonably achievable (ALARA). [facility]: Dose Right [facility]: CareDose [facility]: Dose Right [facility]: Teradose 4D [facility]: [employer] RADIATION DOSE: CT Rad equipment meets quality standard of care and radiation dose reduction techniq ues were employed. CTDIvol: 6.3 mGy. DLP: 246 mGy-cm. mGy. LIMITATIONS: No technical limitations. FINDINGS: LUNGS AND PLEURA: Centrilobular and paraseptal emphysematous changes. No infiltrate, effu david, or mass. HILAR AND MEDIASTINAL STRUCTURES: No identified masses or abnormal nodes. No obvious aneurysm. HEART AND VASCULAR STRUCTURES: No aneurysm. No pericardial effusion. UPPER ABDOMEN: No significant findings. Limited exam. THYROID AND OTHER SOFT TISSUES: No masses. No adenopathy. BONES: No significant finding. HARDWARE: None in the chest. OTHER: No other significant findings. IMPRESSION: Pulmonary emphysema. No acute findings in the thorax. TECHNICAL DOCUMENTATION: JOB ID: [id number] Quality ID # [id number]: Final reports with documentation of one or more dose reduction techniques (e.g., Au tomated exposure control, adjustment of the mA and/or kV according to patient size, use of iterative reconstruction technique) 2010 [employer]- All Rights Reserved Reading location - IP/workstation name: [email or web address]
== END ==
LOC: RAD 10:00
PROVIDERS: ATTEND Internal Medicine Critical Care Medicine
DX: J44.9 Chronic obstructive pulmonary disease, unspecified (principal); R91.1 Solitary pulmonary nodule
CPT/HCPCS: 71250

== ENCOUNTER 2018-10-31 07:33 | Inpatient (IN) | payer OTHER, MEDICARE ==
[2018-10-31] MEDS ORDERED: IPRATROPIUM/ALBUTEROL 0.5-2.5 MG/3 ML AMPUL NEB ONE (08:51)
[2018-10-31] MEDS ORDERED: LIDOCAINE 1% INJ-PF (10 MG/ML) 30 ML SDV NEB ONE (08:51)
[2018-10-31 08:52] LABS: ABSOLUTE LYMPHOCYTES (AUTO) 0.8 10^3/uL (0.5-4.7); ABSOLUTE MONOCYTES (AUTO) 0.6 10^3/uL (0.1-1.4); BASOPHILS % (AUTO) 0.4 % (0-2); EOSINOPHILS % (AUTO) 0.5 % (0-6); HEMATOCRIT 37.5 % (37.9-51.0); HEMOGLOBIN 12.9 g/dL (13.5-17.0); LYMPHOCYTES % (AUTO) 8.9 % (13-45); MEAN CORPUSCULAR HEMOGLOBIN 30.4 pg (27.0-33.4); MEAN CORPUSCULAR HGB CONC 34.4 g/dL (32.0-36.0); MEAN CORPUSCULAR VOLUME 89 fl (80-97); MONOCYTES % (AUTO) 7.5 % (3-13); PLATELET COUNT 254 10^3/uL (150-450); RED BLOOD COUNT 4.23 10^6/uL (4.35-5.55); RED CELL DISTRIBUTION WIDTH 13.6 % (11.5-14.0); SEGMENTED NEUTROPHILS % (AUTO) 82.7 % (42-78); TOTAL CELLS COUNTED % (AUTO) 100 %; WHITE BLOOD COUNT 8.5 10^3/uL (4.0-10.5)
[2018-10-31 09:08] LABS: ALKALINE PHOSPHATASE 76 U/L (38-126); ANION GAP 8 (5-19); ASPARTATE AMINO TRANSFERASE 21 U/L (17-59); BILIRUBIN,DIRECT 0.3 mg/dL (0.0-0.4); BILIRUBIN,TOTAL 0.6 mg/dL (0.2-1.3); BLOOD UREA NITROGEN 14 mg/dL (7-20); CALCIUM 9.6 mg/dL (8.4-10.2); CARBON DIOXIDE 26 mmol/L (22-30); CHLORIDE 97 mmol/L (98-107); GLUCOSE 100 mg/dL (75-110); POTASSIUM 5.3 mmol/L (3.6-5.0); TOTAL PROTEIN 6.4 g/dL (6.3-8.2)
--- NOTE | 2018-10-31 09:08 | RADIOLOGY REPORT (SQ) ---
EXAM DESCRIPTION: CHEST SINGLE VIEW COMPLETED DATE/TIME: 10/31/2018 8:43 am REASON FOR STUDY: SOB COMPARISON: 08/26/2018 EXAM PARAMETERS: NUMBER OF VIEWS: One view. TECHNIQUE: Single frontal radiographic view of the chest acquired. RADIATION DOSE: NA LIMITATIONS: None. FINDINGS: LUNGS AND PLEURA: Unchanged left basilar scarring or atelectasis. MEDIASTINUM AND HILAR STRUCTURES: No masses. Contour normal. HEART AND VASCULAR STRUCTURES: Heart normal in size. Normal vasculature. BONES: No acute findings. HARDWARE: None in the chest. OTHER: No other significant finding. IMPRESSION: Unchanged left basilar scarring or atelectasis. No acute abnormality of the lungs. No new airspace opacity. TECHNICAL DOCUMENTATION: JOB ID: [id number] [employer]- All Rights Reserved Reading location - IP/workstation name: [email or web address]
[2018-10-31 09:22] LABS: CREATINE KINASE 63 U/L (55-170)
--- NOTE | 2018-10-31 09:38 | ER Document Report ---
ED Respiratory Problem - General Chief Complaint: Shortness Of Breath Stated Complaint: DIFFICULTY BREATHING Time Seen by Provider: 10/31/18 08:42 Primary Care Provider: RODRIGUE LANGE PA [Primary Care Provider] - Follow up as needed Mode of Arrival: Ambulatory Information source: Patient, [facility] Records Notes: 73-year-old male patient comes emergency room complaining of shortness of breath. He states that he has had a nonproductive cough for the past week, he saw his primary care recently and was started on prednisone 40 mg a day for 3 days, finished the medication this morning. He was also put on Tessalon Perles and did not seem to help. He did do 3 DuoNeb treatments at home which only marginally helped. TRAVEL OUTSIDE OF THE [place] IN LAST 30 DAYS: No - Related Data Allergies/Adverse Reactions: No Known Allergies Allergy (Verified 07/16/18 23:25) Past Medical History - General Information source: Patient, [facility] Records - Social History Smoking Status: Former Smoker - Quit in March 2018 Cigarette use (# per day): No Chew tobacco use (# tins/day): No Smoking Education Provided: No Frequency of alcohol use: None Drug Abuse: None Occupation: Retired Lives with: Spouse/Significant other Family History: None Patient has suicidal ideation: No Patient has homicidal ideation: No - Past Medical History Cardiac Medical History: Reports: Hx Hypercholesterolemia, Hx Hypertension Pulmonary Medical History: Reports: Hx COPD Past Surgical History: Reports: Hx Appendectomy, Hx Tonsillectomy Review of Systems - Review of Systems Constitutional: No symptoms reported EENT: No symptoms reported Cardiovascular: No symptoms reported Respiratory: See HPI, Cough, Short of breath Gastrointestinal: No symptoms reported Genitourinary: No symptoms reported Musculoskeletal: No symptoms reported Skin: No symptoms reported Hematologic/Lymphatic: No symptoms reported Neurological/Psychological: No symptoms reported Physical Exam - Vital signs Vitals: Temp Pulse Resp BP Pulse Ox 98.2 F 88 24 H 134/73 H 96 10/31/18 08:00 10/31/18 08:00 10/31/18 08:00 10/31/18 08:00 10/31/18 08:00 Interpretation: Tachypneic - General General appearance: Alert, Anxious In distress: Mild - HEENT Head: Normocephalic, Atraumatic Eyes: Normal Pupils: PERRL Neck: Normal - Respiratory Respiratory status: Tachypnea Chest status: Nontender Breath sounds: Other - There is a small amount of wheeze heard in the left lung when I have the patient take a deep breath and cough, however overall his lungs sound quite clear for a COPD patient - Cardiovascular Rhythm: Regular Heart sounds: Normal auscultation Murmur: No - Abdominal Inspection: Normal Bowel sounds: Normal Tenderness: Nontender - Back Back: Normal - Extremities General upper extremity: Normal inspection General lower extremity: Normal inspection - Neurological Neuro grossly intact: Yes - Psychological Associated symptoms: Anxious Course - Re-evaluation Re-evalutation: 10/31/18 13:01 Room air ABG shows pH 7.45, PCO2 34.6, PO2 64.3 CTA chest does not show any pulmonary embolus, there is some bibasilar opacities that are new from prior study. - Vital Signs Vital signs: Temp Pulse Resp BP Pulse Ox 98.2 F 88 17 159/78 H 94 10/31/18 08:00 10/31/18 08:00 10/31/18 11:01 10/31/18 11:01 10/31/18 11:01 - Laboratory Result Diagrams: 10/31/18 08:30 10/31/18 08:30 Laboratory results interpreted by me: 10/31/18 10/31/18 10/31/18 08:30 08:30 08:30 RBC 4.23 L Hgb 12.9 L Hct 37.5 L Seg Neutrophils % 82.7 H Lymphocytes % 8.9 L D-Dimer 0.86 H Carbonic Acid ABG pCO2 ABG pO2 ABG O2 Saturation Sodium 131.2 L Potassium 5.3 H Chloride 97 L 10/31/18 10:10 RBC Hgb Hct Seg Neutrophils % Lymphocytes % D-Dimer Carbonic Acid 1.04 L ABG pCO2 34.6 L ABG pO2 64.3 L ABG O2 Saturation 93.6 L Sodium Potassium Chloride - Diagnostic Test Radiology reviewed: Image reviewed, Reports reviewed - CT scan shows increased heterogeneous opacity in bilateral lung bases compared to prior CT scan on 10/12/2018. Emphysema. Negative for pulmonary embolus. - EKG Interpretation by [place] EKG shows normal: Sinus rhythm, [place], Intervals, QRS Complexes, ST-T Waves Rate: Normal Rhythm: NSR [place]/QRS: LBBB When compared to previous EKG there are: No significant change - Consults Dr. Monsalve Time consulted: 12:46 Consulted provider: will come to ER Critical Care Note - Critical Care Note Total time excluding time spent on procedures (mins): 45 Discharge - Discharge Clinical Impression: Bibasilar infiltrates, COPD exacerbation, Hypoxemia Condition: Stable Disposition: ADMITTED INPATIENT Admitting Provider: Bello (Hospitalist) Unit Admitted: Telemetry Referrals: RODRIGUE LANGE PA [Primary Care Provider] - Follow up as needed
[2018-10-31 10:14] LABS: ARTERIAL BLOOD BASE EXCESS 0.1 mmol/L; ARTERIAL BLOOD H2CO3 1.04 mmol/L (1.05-1.35); ARTERIAL BLOOD HCO3 23.5 mmol/L (20-24); ARTERIAL BLOOD O2 SATURATION 93.6 % (94-98); ARTERIAL BLOOD PCO2 34.6 mmHg (35-45); ARTERIAL BLOOD PH 7.45 (7.35-7.45); ARTERIAL BLOOD PO2 64.3 mmHg (80-100); ARTERIAL BLOOD TOTAL CO2 24.6 mmol/L (23-27)
[2018-10-31 10:15] LABS: ARTERIAL BLOOD FIO2 ROOM AIR
[2018-10-31] MEDS ORDERED: METHYLPREDNISOLONE INJ 125 MG/2 ML SDV IV ONE (10:53)
[2018-10-31] MEDS ORDERED: ALBUTEROL SULFATE 0.083% NEB 2.5 MG/3 ML AMPUL NEB ONE (10:53)
[2018-10-31 10:54] LABS: APPEARANCE,URINE CLEAR; BILIRUBIN,URINE NEGATIVE (NEGATIVE); COLOR,URINE STRAW; GLUCOSE, URINE NEGATIVE (NEGATIVE); KETONES,URINE NEGATIVE (NEGATIVE); LEUKOCYTE ESTERASE,URINE NEGATIVE (NEGATIVE); NITRITE,URINE NEGATIVE (NEGATIVE); PROTEIN,URINE NEGATIVE (NEGATIVE); URINE SPECIFIC GRAVITY 1.004; UROBILINOGEN,URINE NEGATIVE mg/dL (<2.0)
--- NOTE | 2018-10-31 11:33 | RADIOLOGY REPORT (SQ) ---
EXAM DESCRIPTION: CTA CHEST COMPLETED DATE/TIME: 10/31/2018 11:18 am REASON FOR STUDY: Evaded d-dimer, dyspnea, hypoxia COMPARISON: 10/12/2018 TECHNIQUE: CT scan of the chest performed using helical scanning technique with dynamic intravenous contrast injection. Images reviewed with lung, soft tissue and bone windows. Reconstructed coronal and sagittal MPR images reviewed. Additional 3 dimensional post-processing performed to develop Maximal Intensity Projection images (ME P). All images stored on PACS. All CT scanners at this facility use dose modulation, iterative reconstruction, and/or weight based d osing when appropriate to reduce radiation dose to as low as reasonably achievable (ALARA). [facility]: Dose Right [facility]: CareDose [facility]: Dose Right [facility]: Teradose 4D [facility]: [employer] CONTRAST TYPE AND DOSE: contrast/concentration: Isovue 350.00 mg/ml; Total Contrast Delivered: 80.0 ml; Total Saline Delivered: 80.0 ml Contrast bolus optimized for the pulmonary arteries. Not diagnostic for the aorta. RENAL FUNCTION: GFR > 60. RADIATION DOSE: CT Rad equipment meets quality standard of care and radiation dose reduction techniq ues were employed. CTDIvol: 11.3 - 11.4 mGy. DLP: 456 mGy-cm. . LIMITATIONS: None. FINDINGS: LUNGS AND PLEURA: There is increased heterogeneous opacity of the bilateral lung bases. R edemonstrated moderate centrilobular and paraseptal emphysema and bibasilar bronchial wall thickening . No pleural effusions or pleural calcifications. AORTA AND GREAT VESSELS: No aneurysm. Contrast bolus not optimized for the aorta. HEART: No pericardial effusion. No significant coronary artery calcifications. PULMONARY ARTERIES: No emboli visualized in the main pulmonary arteries or the segmental branches. HILAR AND MEDIASTINAL STRUCTURES: No identified masses or abnormal nodes. HARDWARE: None in the chest. UPPER ABDOMEN: No significant findings. Limited exam. THYROID AND OTHER SOFT TISSUES: No masses. No adenopathy. BONES: No acute or significant finding. 3D MIPS: Confirm above findings. OTHER: No other significant finding. IMPRESSION: 1. Negative examination for pulmonary embolism. 2. There is increased heterogeneous opacity the bilateral lung bases compared to prior examination, consistent with infection or aspiration. 3. Emphysema. COMMENT: Quality ID # [id number]: Final reports with documentation of one or more dose reduction techniques (e.g., Automated exposure control, adjustment of the mA and/or kV according to patient size, use of iterative reconstruction technique) TECHNICAL DOCUMENTATION: JOB ID: [id number] [employer] [facility]- All Rights Reserved Reading location - IP/workstation name: [email or web address]
[2018-10-31] MEDS ORDERED: LEVOFLOXACIN 750 MG/D5W RTU 750 MG/150 ML RTUPB IV ONE (13:06)
[2018-10-31] MEDS ORDERED: MAG HYDROX/AL HYDROX/SIMETH SUSP 30 ML UDCUP PO PRN (14:05)
[2018-10-31] MEDS ORDERED: NORMAL SALINE 1000 ML 1,000 ML IV PRN (14:05)
[2018-10-31] MEDS ORDERED: ACETAMINOPHEN 325 MG TABLET PO PRN (14:05)
[2018-10-31] MEDS ORDERED: ALBUTEROL SULFATE 0.083% NEB 2.5 MG/3 ML AMPUL NEB PRN (14:05)
[2018-10-31] MEDS ORDERED: MAGNESIUM HYDROXIDE SUSP 30 ML UDCUP PO PRN (14:05)
[2018-10-31] MEDS ORDERED: ONDANSETRON HCL INJ/PF 4 MG/2 ML SDV IV PRN (14:05)
[2018-10-31] MEDS ORDERED: PROMETHAZINE HCL 25 MG TABLET PO PRN (14:05)
--- NOTE | 2018-10-31 15:51 | EKG REPORT ---
SEVERITY:- ABNORMAL ECG - SINUS RHYTHM LEFT BUNDLE BRANCH BLOCK : Confirmed by: Niharika Morales MD 31-Oct-2018 15:50:45
--- NOTE | 2018-10-31 16:44 | PDOC H&P ---
History of Present Illness Admission Date/PCP: 10/31/18 13:08 OFE CORTEZ Patient complains of: shortness of breath History of Present Illness: JOMAR BROCK is a 73 year old male with a past medical history significant for hypertension, hyperlipidemia, COPD, and 50-year pack history (stop smoking in March of this year) who presents to the emergency department today with a complaint of dyspnea at rest and wheezing that was not relieved by 3 DuoNeb teresa tments at home. Patient was recently seen in urgent care and provided prednisone 40 mg daily; just completed a 4-day course of therapy without improvement in symptoms. He denies recent fever, chills, though does endorse tenacious sputum production. He is followed by Dr. Brothers as an outpatient. Evaluation in the emergency department is fairly unremarkable other than tachypnea, hypoxia on room air, elevated d-dimer though with negative CTA of the chest, mild hyponatremia (131; appears chronic), and hyperkalemia of 5.3. Troponins are negative, proBNP 744. Chest x-ray is benign, CTA of the chest is negative for PE though does demonstrate bibasilar opacities and bibasilar bronchial wall thickening that was present on prior exams. EKG demonstrates sinus rhythm with LBBB (also present on prior EKGs). He is referred to the hospitalist service for admission and management of acute respiratory failure with hypoxia secondary to COPD exacerbation and possible bibasilar pneumonia. Past Medical History Cardiac Medical History: Reports: Hyperlipidema, Hypertension Denies: Congestive Heart Failure, Coronary Artery Disease, Myocardial Infarction Pulmonary Medical History: Reports: Chronic Obstructive Pulmonary Disease (COPD) EENT Medical History: Reports: None Neurological Medical History: Reports: None Endocrine Medical History: Reports: None Renal/ Medical History: Reports: None Malignancy Medical History: Reports: None GI Medical History: Reports: None Musculoskeltal Medical History: Reports: None Skin Medical History: Reports: None Psychiatric Medical History: Reports: Tobacco Dependency Hematology: Reports: None Infectious Medical History: Reports: None Past Surgical History Past Surgical History: Reports: Appendectomy, Tonsillectomy Social History Information Source: Patient Lives with: Spouse/Significant other Smoking Status: Former Smoker - Quit in March 2018 Cigarettes Packs Per Day: 1 Number of Years Smokin Frequency of Alcohol Use: Occasional Hx Recreational Drug Use: No Hx Prescription Drug Abuse: No - Advance Directive Resuscitation Status: Full Code Family History Family History: None Parental Family History Reviewed: Yes Children Family History Reviewed: Yes Sibling(s) Family History Reviewed.: Yes Medication/Allergy Home Medications: Famotidine [Pepcid 20 mg Tablet] 20 mg PO DAILY #12 tablet 06/22/18 Ondansetron [Zofran Odt 4 mg Tablet] 1 tab PO Q4H PRN #15 tab.rapdis 06/22/18 Prednisone [Deltasone 20 mg Tablet] 3 tab PO DAILY 4 Days tablet 07/02/18 Albuterol Sulfate [Ventolin 0.083% Neb 2.5 mg/3 mL Ampul] 1 vial NEB Q4 PRN #30 vial 07/17/18 Nebulizer [Nebulizer Machine] 1 each MC ASDIR PRN #1 kit 07/17/18 Benzonatate [Tessalon Perles 100 mg Capsule] 100 mg PO ASDIR PRN #50 capsule 08/26/18 Ipratropium Aubrey [Atrovent 0.02% Neb 0.5 mg/2.5 ml Ampul] 0.5 mg NEB Q4 PRN #50 vial.neb 08/26/18 Prednisone [Deltasone 10 mg Tablet] 10 mg PO ASDIR PRN #21 tablet 08/26/18 Allergies/Adverse Reactions: No Known Allergies Allergy (Verified 07/16/18 23:25) Review of Systems Constitutional: PRESENT: anorexia, fatigue. ABSENT: chills, fever(s), headache(s), weight gain, weight loss Eyes: ABSENT: visual disturbances Ears: ABSENT: hearing changes Cardiovascular: PRESENT: dyspnea on exertion. ABSENT: chest pain, edema, orthropnea, palpitations Respiratory: PRESENT: cough, dyspnea, sputum. ABSENT: hemoptysis Gastrointestinal: ABSENT: abdominal pain, constipation, diarrhea, hematemesis, hematochezia, nausea, vomiting Genitourinary: ABSENT: dysuria, hematuria Musculoskeletal: ABSENT: joint swelling Integumentary: ABSENT: rash, wounds Neurological: ABSENT: abnormal gait, abnormal speech, confusion, dizziness, focal weakness, syncope Psychiatric: ABSENT: anxiety, depression, homidical ideation, suicidal ideation Endocrine: ABSENT: cold intolerance, heat intolerance, polydipsia, polyuria Hematologic/Lymphatic: ABSENT: easy bleeding, easy bruising Physical Exam Vital Signs: Temp Pulse Resp BP Pulse Ox 98.2 F 88 17 159/78 H 94 10/31/18 08:00 10/31/18 08:00 10/31/18 11:01 10/31/18 11:01 10/31/18 11:01 Intake & Output 10/30/18 10/31/18 11/01/18 06:59 06:59 06:59 Weight 73 kg General appearance: PRESENT: no acute distress, cooperative - Pleasant, thin, well-developed, well-nourished Head exam: PRESENT: atraumatic, normocephalic Eye exam: PRESENT: conjunctiva pink, EOMI, PERRLA. ABSENT: scleral icterus Ear exam: PRESENT: normal external ear exam Mouth exam: PRESENT: moist, tongue midline Neck exam: ABSENT: carotid bruit, JVD, lymphadenopathy, thyromegaly Respiratory exam: PRESENT: clear to auscultation rebecca, rhonchi - Scant bibasilar, symmetrical, tachypnea, unlabored, other - Supplemental oxygen by nasal cannula. ABSENT: rales, wheezes Cardiovascular exam: PRESENT: RRR, +S1, +S2. ABSENT: diastolic murmur, rubs, systolic murmur Pulses: PRESENT: normal dorsalis pedis pul Vascular exam: PRESENT: normal capillary refill GI/Abdominal exam: PRESENT: normal bowel sounds, soft. ABSENT: distended, guarding, mass, organolmegaly, rebound, tenderness Rectal exam: PRESENT: deferred Extremities exam: PRESENT: full ROM. ABSENT: calf tenderness, clubbing, pedal edema Musculoskeletal exam: PRESENT: ambulatory Neurological exam: PRESENT: alert, awake, oriented to person, oriented to place, oriented to time, oriented to situation, CN II-XII grossly intact. ABSENT: mot or sensory deficit Psychiatric exam: PRESENT: appropriate affect, normal mood. ABSENT: homicidal ideation, suicidal ideation Skin exam: PRESENT: dry, intact, warm. ABSENT: cyanosis, rash Results Laboratory Results: 10/31/18 08:30 10/31/18 08:30 10/31/18 10/31/18 10/31/18 08:30 08:30 10:10 WBC 8.5 RBC 4.23 L Hgb 12.9 L Hct 37.5 L MCV 89 MCH 30.4 MCHC 34.4 RDW 13.6 Plt Count 254 Seg Neutrophils % 82.7 H Lymphocytes % 8.9 L Monocytes % 7.5 Eosinophils % 0.5 Basophils % 0.4 Absolute Neutrophils 7.0 Absolute Lymphocytes 0.8 Absolute Monocytes 0.6 Absolute Eosinophils 0.0 Absolute Basophils 0.0 Carbonic Acid 1.04 L HCO3/H2CO3 Ratio 22:1 ABG pH 7.45 ABG pCO2 34.6 L ABG pO2 64.3 L ABG HCO3 23.5 ABG O2 Saturation 93.6 L ABG Base Excess 0.1 FiO2 ROOM AIR Sodium 131.2 L Potassium 5.3 H Chloride 97 L Carbon Dioxide 26 Anion Gap 8 BUN 14 Creatinine 1.13 Est GFR ( Amer) > 60 Est GFR (Non-Af Amer) > 60 Glucose 100 Calcium 9.6 Total Bilirubin 0.6 AST 21 Alkaline Phosphatase 76 Total Protein 6.4 Albumin 4.0 Urine Color Urine Appearance Urine pH Ur Specific [place] Urine Protein Urine Glucose (UA) Urine Ketones Urine Blood Urine Nitrite Ur Leukocyte Esterase Urine WBC (Auto) Urine RBC (Auto) 10/31/18 10:30 WBC RBC Hgb Hct MCV MCH MCHC RDW Plt Count Seg Neutrophils % Lymphocytes % Monocytes % Eosinophils % Basophils % Absolute Neutrophils Absolute Lymphocytes Absolute Monocytes Absolute Eosinophils Absolute Basophils Carbonic Acid HCO3/H2CO3 Ratio ABG pH ABG pCO2 ABG pO2 ABG HCO3 ABG O2 Saturation ABG Base Excess FiO2 Sodium Potassium Chloride Carbon Dioxide Anion Gap BUN Creatinine Est GFR ( Amer) Est GFR (Non-Af Amer) Glucose Calcium Total Bilirubin AST Alkaline Phosphatase Total Protein Albumin Urine Color STRAW Urine Appearance CLEAR Urine pH 7.0 Ur Specific [place] 1.004 Urine Protein NEGATIVE Urine Glucose (UA) NEGATIVE Urine Ketones NEGATIVE Urine Blood NEGATIVE Urine Nitrite NEGATIVE Ur Leukocyte Esterase NEGATIVE Urine WBC (Auto) 0 Urine RBC (Auto) 1 10/31/18 10/31/18 10/31/18 08:30 08:30 08:30 Creatine Kinase 63 Troponin I < 0.012 NT-Pro-B Natriuret Pep 744 Impressions: Chest X-Ray 10/31/18 08:03 IMPRESSION: Unchanged left basilar scarring or atelectasis. No acute abnormality of the lungs. No new airspace opacity. Chest/Abdomen CTA 10/31/18 10:21 IMPRESSION: 1. Negative examination for pulmonary embolism. 2. There is increased heterogeneous opacity the bilateral lung bases compared to prior examination, consistent with infection or aspiration. 3. Emphysema. Assessment and Plan - Diagnosis (1) Pneumonia Qualifiers: Pneumonia type: due to unspecified organism Laterality: bilateral Lung location: lower lobe of lung Qualified Code(s): J18.1 - Lobar pneumonia, unspecified organism Is this a current diagnosis for this admission?: Yes Plan: Patient presents with dyspnea, wheezing, increased sputum production, anorexia and fatigue times several days unrelieved by p.o. prednisone and DuoNeb treatments at home over the previous week. CTA of the chest demonstrates bibasilar opacities. He is afebrile with normal WBC. Blood cultures pending. Sputum culture pending Patient is admitted to the medical floor. He is empirically placed on IV Levaquin Continue supplemental oxygen to maintain saturations greater than 89%. Scheduled and as needed nebulizer treatments. Mucinex twice daily. Encourage pulmonary toilet with incentive spirometer and flutter valve. (2) COPD exacerbation Is this a current diagnosis for this admission?: Yes Plan: Secondary to community-acquired pneumonia. Supplemental oxygen as needed. Scheduled and as needed nebulizer treatments. P.o. prednisone. Twice daily Mucinex. Encouraged pulmonary toilet. Patient is followed by Dr. Brothers; consider pulmonary consultation if delayed improvement. (3) Hypoxemia Is this a current diagnosis for this admission?: Yes Plan: ABG demonstrated compensated respiratory alkalosis with hypoxia. No hypercapnia. Secondary to #1 and 2; management as above. (4) Hypertension Qualifiers: Hypertension type: essential hypertension Qualified Code(s): I10 - Essential (primary) hypertension Is this a current diagnosis for this admission?: Yes Plan: Cardiac diet. Continue home medication regiment once reconciled. (5) Hyperlipidemia Qualifiers: Hyperlipidemia type: unspecified Qualified Code(s): E78.5 - Hyperlipidemia, unspecified Is this a current diagnosis for this admission?: Yes Plan: Cardiac diet. Continue home dose statin therapy once reconciled.
[2018-10-31] MEDS: IPRATROPIUM/ALBUTEROL 0.5-2.5 MG/3 ML AMPUL NEB SCH (19:47)
[2018-10-31] MEDS: GUAIFENESIN 600 MG TABLET.SA PO SCH (22:17)
[2018-10-31] MEDS: HEPARIN SOD (PORCINE) 5,000 UNIT/ML 1 ML VIAL SUBCUT SCH (22:17)
[2018-10-31] MEDS: FAMOTIDINE INJ/PF 20 MG/2 ML SDV IV SCH (22:17)
[2018-11-01] MEDS: IPRATROPIUM/ALBUTEROL 0.5-2.5 MG/3 ML AMPUL NEB SCH ×4 (01:40→20:40)
[2018-11-01] MEDS: HEPARIN SOD (PORCINE) 5,000 UNIT/ML 1 ML VIAL SUBCUT SCH ×3 (05:24→22:23)
[2018-11-01 05:44] LABS: HEMATOCRIT 35.4 % (37.9-51.0); HEMOGLOBIN 12.3 g/dL (13.5-17.0); MEAN CORPUSCULAR HEMOGLOBIN 30.3 pg (27.0-33.4); MEAN CORPUSCULAR HGB CONC 34.7 g/dL (32.0-36.0); MEAN CORPUSCULAR VOLUME 88 fl (80-97); PLATELET COUNT 227 10^3/uL (150-450); RED BLOOD COUNT 4.04 10^6/uL (4.35-5.55); RED CELL DISTRIBUTION WIDTH 13.7 % (11.5-14.0); WHITE BLOOD COUNT 10.1 10^3/uL (4.0-10.5)
[2018-11-01 06:05] LABS: ANION GAP 10 (5-19); BLOOD UREA NITROGEN 20 mg/dL (7-20); CALCIUM 9.3 mg/dL (8.4-10.2); CARBON DIOXIDE 22 mmol/L (22-30); CHLORIDE 99 mmol/L (98-107); GLUCOSE 114 mg/dL (75-110); POTASSIUM 4.5 mmol/L (3.6-5.0)
[2018-11-01] MEDS: GUAIFENESIN 600 MG TABLET.SA PO SCH ×2 (09:54→22:50)
[2018-11-01] MEDS: DOCUSATE SODIUM 100 MG CAPSULE PO SCH (09:54)
[2018-11-01] MEDS: LEVOFLOXACIN 750 MG TABLET PO SCH (09:54)
[2018-11-01] MEDS: FAMOTIDINE INJ/PF 20 MG/2 ML SDV IV SCH ×2 (09:54→22:50)
[2018-11-01] MEDS ORDERED: PREDNISONE 20 MG TABLET PO SCH (10:00)
--- NOTE | 2018-11-01 11:17 | PDOC PROGRESS REPORT ---
Subjective Progress Note for:: 11/01/18 Subjective:: 73 year old male with a past medical history significant for hypertension, hyperlipidemia, COPD, and 50-year pack history (stop smoking in March of this year) who presents to the emergency department today with a complaint of dyspnea at rest and wheezing that was not relieved by 3 DuoNeb treatments at home. Patient was recently seen in urgent care and provided prednisone 40 mg daily; just completed a 4-day course of therapy without improvement in symptoms. He denies recent fever, chills, though does endorse tenacious sputum production. He is followed by Dr. Serra as an outpatient. Evaluation in the emergency department is fairly unremarkable other than tachypnea, hypoxia on room air, elevated d-dimer though with negative CTA of the chest, mild hyponatremia (131; appears chronic), and hyperkalemia of 5.3. Troponins are negative, proBNP 744. Chest x-ray is benign, CTA of the chest is negative for PE though does demonstrate bibasilar opacities and bibasilar bronchial wall thickening that was present on prior exams. EKG demonstrates sinus rhythm with LBBB (also present on prior EKGs). He is referred to the hospitalist service for admission and management of acute respiratory failure with hypoxia secondary to COPD exacerbation and possible bib asilar pneumonia. 11/01/[id number]-fgra-old male with history of smoking for more than 45 years, COPD, hypertension hyperlipidemia admitted with shortness of breath. He is receiving p.o. prednisone and IV Levaquin. CT of the chest suggestive of heterogeneous opacity at lung bases suggestive of infection. No acute events in the last 24 hours patient pulse ox is 97% on 2 L. Telemetry requested for a transfer to [facility] then patient change his mind prefers to stay here until he gets better. Reason For Visit: COPD EXACERBATION Physical Exam Vital Signs: Temp Pulse Resp BP Pulse Ox 97.6 F 88 18 127/70 H 94 11/01/18 00:00 11/01/18 07:36 11/01/18 07:36 11/01/18 00:00 11/01/18 07:36 Intake & Output 10/31/18 11/01/18 11/02/18 06:59 06:59 06:59 Intake Total 770 Balance 770 Weight 72.2 kg General appearance: PRESENT: no acute distress, cooperative Head exam: PRESENT: atraumatic Eye exam: PRESENT: PERRLA Mouth exam: PRESENT: dry mucosa Teeth exam: PRESENT: poor dentation Neck exam: ABSENT: carotid bruit, JVD, lymphadenopathy, thyromegaly Respiratory exam: PRESENT: decreased breath sounds, wheezes Cardiovascular exam: PRESENT: RRR. ABSENT: diastolic murmur, rubs, systolic murmur GI/Abdominal exam: PRESENT: normal bowel sounds, soft. ABSENT: distended, guarding, mass, organolmegaly, rebound, tenderness Rectal exam: PRESENT: deferred Extremities exam: PRESENT: full ROM. ABSENT: calf tenderness, clubbing, pedal edema Neurological exam: PRESENT: alert, awake, oriented to person, oriented to place, oriented to time, oriented to situation, CN II-XII grossly intact. ABSENT: motor sensory deficit Psychiatric exam: PRESENT: appropriate affect, normal mood. ABSENT: homicidal ideation, suicidal ideation Results Laboratory Results: 11/01/18 04:55 11/01/18 04:55 11/01/18 11/01/18 04:55 04:55 WBC 10.1 RBC 4.04 L Hgb 12.3 L Hct 35.4 L MCV 88 MCH 30.3 MCHC 34.7 RDW 13.7 Plt Count 227 Sodium 131.0 L Potassium 4.5 Chloride 99 Carbon Dioxide 22 Anion Gap 10 BUN 20 Creatinine 1.36 H Est GFR ( Amer) > 60 Est GFR (Non-Af Amer) 52 L Glucose 114 H Calcium 9.3 10/31/18 10/31/18 10/31/18 08:30 08:30 08:30 Creatine Kinase 63 Troponin I < 0.012 NT-Pro-B Natriuret Pep 744 Impressions: Chest X-Ray 10/31/18 08:03 IMPRESSION: Unchanged left basilar scarring or atelectasis. No acute abnormality of the lungs. No new airspace opacity. Chest/Abdomen CTA 10/31/18 10:21 IMPRESSION: 1. Negative examination for pulmonary embolism. 2. There is increased heterogeneous opacity the bilateral lung bases compared to prior examination, consistent with infection or aspiration. 3. Emphysema. Assessment and Plan - Diagnosis (1) COPD exacerbation Is this a current diagnosis for this admission?: Yes Plan: Secondary to community-acquired pneumonia. Supplemental oxygen as needed. Scheduled and as needed nebulizer treatments. P.o. prednisone. Twice daily Mucinex. Encouraged pulmonary toilet. Patient is followed by Dr. Serra; consider pulmonary consultation if delayed improvement. 11/01/2018-patient admitted with COPD exacerbation most likely secondary to community-acquired pneumonia. Pulse ox is 97% on 2 L. Receiving scheduled and as needed nebulizations. Plan is to change p.o. prednisone to IV Solu-Medrol today. Patient's dietetic technician is Dr. Serra consultation will be placed for him. (2) Hypertension Qualifiers: Hypertension type: essential hypertension Qualified Code(s): I10 - Essenti al (primary) hypertension Is this a current diagnosis for this admission?: Yes Plan: Cardiac diet. Continue home medication regiment once reconciled. 11/01/2018-patient blood pressure today is 127/76 stable. Plan is to continue the home medications. (3) Hypoxemia Is this a current diagnosis for this admission?: Yes Plan: ABG demonstrated compensated respiratory alkalosis with hypoxia. No hypercapnia. Secondary to #1 and 2; management as above. 11/01/2018-patient admitted with hypoxia most likely secondary to underlying community-acquired pneumonia and COPD exacerbation. Today's pulse ox is 97% on 2 L. (4) Pneumonia Qualifiers: Pneumonia type: due to unspecified organism Laterality: bilateral Lung location: lower lobe of lung Qualified Code(s): J18.1 - Lobar pneumonia, unspecified organism Is this a current diagnosis for this admission?: Yes Plan: Patient presents with dyspnea, wheezing, increased sputum production, anorexia and fatigue times several days unrelieved by p.o. prednisone and DuoNeb treatments at home over the previous week. CTA of the chest demonstrates bibasilar opacities. He is afebrile with normal WBC. Blood cultures pending. Sputum culture pending Patient is admitted to the medical floor. He is empirically placed on IV Levaquin Continue supplemental oxygen to maintain saturations greater than 89%. Scheduled and as needed nebulizer treatments. Mucinex twice daily. Encourage pulmonary toilet with incentive spirometer and flutter valve. 11/01/2018-patient is admitted with COPD exacerbation and community-acquired pneumonia causing hypoxia. Cultures are negative so far. WBC count is 10,100. Afebrile. Presently on IV levo floxacillin. CT of the chest shows bilateral opacifications. Plan is to discontinue p.o. prednisone and start on IV Solu- Medrol. - Time Time Spent with patient: 25-34 minutes Smoking Cessation Education: over 10 minutes Medications reviewed and adjusted accordingly: Yes Anticipated discharge: Home
[2018-11-01] MEDS ORDERED: BENZONATATE 100 MG CAPSULE PO PRN (11:18)
[2018-11-01] MEDS: METHYLPREDNISOLONE INJ 40 MG/1 ML SDV IV SCH (18:44)
[2018-11-01] MEDS: SIMVASTATIN 40 MG TABLET PO SCH (22:50)
[2018-11-02] MEDS: IPRATROPIUM/ALBUTEROL 0.5-2.5 MG/3 ML AMPUL NEB SCH ×4 (02:38→20:35)
[2018-11-02] MEDS: METHYLPREDNISOLONE INJ 40 MG/1 ML SDV IV SCH ×3 (02:50→22:43)
[2018-11-02] MEDS: HEPARIN SOD (PORCINE) 5,000 UNIT/ML 1 ML VIAL SUBCUT SCH ×3 (06:04→22:49)
[2018-11-02 06:35] LABS: HEMATOCRIT 36.4 % (37.9-51.0); HEMOGLOBIN 12.6 g/dL (13.5-17.0); MEAN CORPUSCULAR HEMOGLOBIN 30.1 pg (27.0-33.4); MEAN CORPUSCULAR HGB CONC 34.6 g/dL (32.0-36.0); MEAN CORPUSCULAR VOLUME 87 fl (80-97); PLATELET COUNT 244 10^3/uL (150-450); RED BLOOD COUNT 4.19 10^6/uL (4.35-5.55); RED CELL DISTRIBUTION WIDTH 13.7 % (11.5-14.0); WHITE BLOOD COUNT 9.6 10^3/uL (4.0-10.5)
[2018-11-02 06:53] LABS: ALBUMIN 3.7 g/dL (3.5-5.0); ALKALINE PHOSPHATASE 62 U/L (38-126); ANION GAP 10 (5-19); ASPARTATE AMINO TRANSFERASE 16 U/L (17-59); BILIRUBIN,DIRECT 0.3 mg/dL (0.0-0.4); BILIRUBIN,TOTAL 0.5 mg/dL (0.2-1.3); BLOOD UREA NITROGEN 26 mg/dL (7-20); CALCIUM 9.6 mg/dL (8.4-10.2); CARBON DIOXIDE 23 mmol/L (22-30); CHLORIDE 98 mmol/L (98-107); GLUCOSE 123 mg/dL (75-110); POTASSIUM 4.6 mmol/L (3.6-5.0)
[2018-11-02 07:22] LABS: ABSOLUTE LYMPHOCYTES# (MANUAL) 0.6 10^3/uL (0.5-4.7); ABSOLUTE MONOCYTES # (MANUAL) 0.3 10^3/uL (0.1-1.4); BASOPHILS % (MANUAL) 0 % (0-2); EOSINOPHILS % (MANUAL) 0 % (0-6); LYMPHOCYTES % (MANUAL) 6 % (13-45); MONOCYTES % (MANUAL) 3 % (3-13); SEGMENTED NEUTROPHILS % (MAN) 91 % (42-78); TOTAL CELLS COUNTED 100
[2018-11-02 07:23] LABS: OVALOCYTES SLIGHT; PLATELET COMMENT ADEQUATE; POIKILOCYTOSIS SLIGHT; SCHISTOCYTES SLIGHT
[2018-11-02] MEDS: LOSARTAN POTASSIUM 50 MG TABLET PO SCH (10:29)
[2018-11-02] MEDS: DOCUSATE SODIUM 100 MG CAPSULE PO SCH (10:29)
[2018-11-02] MEDS: FAMOTIDINE INJ/PF 20 MG/2 ML SDV IV SCH ×2 (10:29→22:43)
[2018-11-02] MEDS: LEVOFLOXACIN 750 MG TABLET PO SCH (10:29)
[2018-11-02] MEDS: METOPROLOL TARTRATE 25 MG TABLET PO SCH (10:29)
[2018-11-02] MEDS: TAMSULOSIN HCL 0.4 MG CAP.SR.24H PO SCH (10:29)
[2018-11-02] MEDS: GUAIFENESIN 600 MG TABLET.SA PO SCH ×2 (10:29→22:43)
[2018-11-02] MEDS: ASPIRIN 81 MG TABLET, ENT COATED PO SCH (10:29)
--- NOTE | 2018-11-02 10:39 | RADIOLOGY REPORT (SQ) ---
EXAM DESCRIPTION: CHEST 2 VIEWS COMPLETED DATE/TIME: 11/02/2018 10:22 am REASON FOR STUDY: copd COMPARISON: 10/31/2018 EXAM PARAMETERS: NUMBER OF VIEWS: two views TECHNIQUE: Digital Frontal and Lateral radiographic views of the chest acquired. RADIATION DOSE: NA LIMITATIONS: none FINDINGS: LUNGS AND PLEURA: Emphysematous change with patchy retrocardiac opacity. Linear bilateral mid lung opacities likely atelectasis or scarring. No large effusion. No pneumothorax. MEDIASTINUM AND HILAR STRUCTURES: No masses or contour abnormalities. HEART AND VASCULAR STRUCTURES: Aortic atherosclerosis. Normal heart size. BONES: No acute findings. HARDWARE: None in the chest. OTHER: No other significant finding. IMPRESSION: Left lower lobe patchy opacities suspicious for pneumonia. Emphysematous change with additional bilateral mid lung linear opacities likely atelectasis or scarri ng. TECHNICAL DOCUMENTATION: JOB ID: [id number] [employer]- All Rights Reserved Reading location - IP/workstation name: [email or web address]
--- NOTE | 2018-11-02 12:33 | PDOC PROGRESS REPORT ---
Subjective Progress Note for:: 11/02/18 Subjective:: 73 year old male with a past medical history significant for hypertension, hyperlipidemia, COPD, and 50-year pack history (stop smoking in March of this year) who presents to the emergency department today with a complaint of dyspnea at rest and wheezing that was not relieved by 3 DuoNeb treatments at home. Patient was recently seen in urgent care and provided prednisone 40 mg daily; just completed a 4-day course of therapy without improvement in symptoms. He denies recent fever, chills, though does endorse tenacious sputum production. He is followed by Dr. Serra as an outpatient. Evaluation in the emergency department is fairly unremarkable other than tachypnea, hypoxia on room air, elevated d-dimer though with negative CTA of the chest, mild hyponatremia (131; appears chronic), and hyperkalemia of 5.3. Troponins are negative, proBNP 744. Chest x-ray is benign, CTA of the chest is negative for PE though does demonstrate bibasilar opacities and bibasilar bronchial wall thickening that was present on prior exams. EKG demonstrates sinus rhythm with LBBB (also present on prior EKGs). He is referred to the hospitalist service for admission and management of acute respiratory failure with hypoxia secondary to COPD exacerbation and possible bib asilar pneumonia. 11/01/[id number]-uubm-old male with history of smoking for more than 45 years, COPD, hypertension hyperlipidemia admitted with shortness of breath. He is receiving p.o. prednisone and IV Levaquin. CT of the chest suggestive of heterogeneous opacity at lung bases suggestive of infection. No acute events in the last 24 hours patient pulse ox is 97% on 2 L. Telemetry requested for a transfer to [facility] then patient change his mind prefers to stay here until he gets better. 11/02/[id number]-dymr-old male admitted with COPD exacerbation and questionable pneumonia. He is doing much better today. Pulse ox is 94 to 96% on 2 L. Repeat chest x-ray shows questionable left lower lobe infiltrate. Plan is to continue the antibiotic therapy and nebulizer treatments today probably discharge home tomorrow. Reason For Visit: COPD EXACERBATION Physical Exam Vital Signs: Temp Pulse Resp BP Pulse Ox 98.4 F 80 15 163/66 H 94 11/02/18 12:00 11/02/18 12:00 11/02/18 12:00 11/02/18 12:00 11/02/18 12:00 Intake & Output 11/01/18 11/02/18 11/03/18 06:59 06:59 06:59 Intake Total 770 1896 Balance 770 1896 Weight 72.2 kg 68.7 kg General appearance: PRESENT: no acute distress Head exam: PRESENT: atraumatic Eye exam: PRESENT: PERRLA Mouth exam: PRESENT: moist, tongue midline Neck exam: ABSENT: carotid bruit, JVD, lymphadenopathy, thyromegaly Respiratory exam: PRESENT: clear to auscultation rebecca, decreased breath sounds. ABSENT: rales, rhonchi, wheezes Cardiovascular exam: PRESENT: RRR. ABSENT: diastolic murmur, rubs, systolic murmur Pulses: PRESENT: normal dorsalis pedis pul GI/Abdominal exam: PRESENT: normal bowel sounds, soft. ABSENT: distended, guarding, mass, organolmegaly, rebound, tenderness Rectal exam: PRESENT: deferred Extremities exam: PRESENT: full ROM. ABSENT: calf tenderness, clubbing, pedal edema Neurological exam: PRESENT: alert, awake, oriented to person, oriented to place, oriented to time, oriented to situation, CN II-XII grossly intact. ABSENT: motor sensory deficit Psychiatric exam: PRESENT: appropriate affect, normal mood. ABSENT: homicidal ideation, suicidal ideation Results Laboratory Results: 11/02/18 05:26 11/02/18 05:26 11/02/18 11/02/18 05:26 05:26 WBC 9.6 RBC 4.19 L Hgb 12.6 L Hct 36.4 L MCV 87 MCH 30.1 MCHC 34.6 RDW 13.7 Plt Count 244 Seg Neutrophils % Not Reportable Lymphocytes % Not Reportable Monocytes % Not Reportable Eosinophils % Not Reportable Basophils % Not Reportable Absolute Neutrophils Not Reportable Absolute Lymphocytes Not Reportable Absolute Monocytes Not Reportable Absolute Eosinophils Not Reportable Absolute Basophils Not Reportable Sodium 130.8 L Potassium 4.6 Chloride 98 Carbon Dioxide 23 Anion Gap 10 BUN 26 H Creatinine 1.31 H Est GFR ( Amer) > 60 Est GFR (Non-Af Amer) 54 L Glucose 123 H Calcium 9.6 Magnesium 2.2 Total Bilirubin 0.5 AST 16 L Alkaline Phosphatase 62 Total Protein 6.0 L Albumin 3.7 11/01/18 05:18 Sputum Gram Stain - Final 11/01/18 05:18 Sputum Sputum Culture - Final 10/31/18 10/31/18 10/31/18 08:30 08:30 08:30 Creatine Kinase 63 Troponin I < 0.012 NT-Pro-B Natriuret Pep 744 Impressions: Chest/Abdomen CTA 10/31/18 10:21 IMPRESSION: 1. Negative examination for pulmonary embolism. 2. There is increased heterogeneous opacity the bilateral lung bases compared to prior examination, consistent with infection or aspiration. 3. Emphysema. Chest X-Ray 11/02/18 00:00 IMPRESSION: Left lower lobe patchy opacities suspicious for pneumonia. Emphysematous change with additional bilateral mid lung linear opacities likely atelectasis or scarring. Assessment and Plan - Diagnosis (1) COPD exacerbation Is this a current diagnosis for this admission?: Yes Plan: Secondary to community-acquired pneumonia. Supplemental oxygen as needed. Scheduled and as needed nebulizer treatments. P.o. prednisone. Twice daily Mucinex. Encouraged pulmonary toilet. Patient is followed by Dr. Serra; consider pulmonary consultation if delayed improvement. 11/01/2018-patient admitted with COPD exacerbation most likely secondary to community-acquired pneumonia. Pulse ox is 97% on 2 L. Receiving scheduled and as needed nebulizations. Plan is to change p.o. prednisone to IV Solu-Medrol today. Patient's sap functional analyst is Dr. Serra consultation will be placed for him. 11/02/2018-patient admitted with COPD exacerbation and associated with community- acquired pneumonia presently on IV Solu-Medrol 40 mg every 8 hours and oxygen 2 L nasal cannula receiving DuoNeb nebulizations. Patient is doing much better today. Plan is to continue the present management at least another day probably discharge home tomorrow. (2) Hypertension Qualifiers: Hypertension type: essential hypertension Qualified Code(s): I10 - Essential (primary) hypertension Is this a current diagnosis for this admission?: Yes Plan: Cardiac diet. Continue home medication regiment once reconciled. 11/01/2018-patient blood pressure today is 127/76 stable. Plan is to continue the home medications. 11/02/2018-patient blood pressure now is 131/66 with heart rate of 77 plan is to continue the present management. (3) Hypoxemia Is this a current diagnosis for this admission?: Yes Plan: ABG demonstrated compensated respiratory alkalosis with hypoxia. No hypercapnia. Secondary to #1 and 2; management as above. 11/01/2018-patient admitted with hypoxia most likely secondary to underlying community-acquired pneumonia and COPD exacerbation. Today's pulse ox is 97% on 2 L. 11/02/2018-patient has a history of hypoxia admitted with hypoxia rather most likely secondary to COPD exacerbation and underlying community-acquired pneumonia pulse ox today is between 94 to 96% on 2 L. Chest examination bilateral entry was much better compared to yesterday. (4) Pneumonia Qualifiers: Pneumonia type: due to unspecified organism Laterality: bilateral Lung location: lower lobe of lung Qualified Code(s): J18.1 - Lobar pneumonia, unspecified organism Is this a current diagnosis for this admission?: Yes Plan: Patient presents with dyspnea, wheezing, increased sputum production, anorexia and fatigue times several days unrelieved by p.o. prednisone and DuoNeb treatm ents at home over the previous week. CTA of the chest demonstrates bibasilar opacities. He is afebrile with normal WBC. Blood cultures pending. Sputum culture pending Patient is admitted to the medical floor. He is empirically placed on IV Levaquin Continue supplemental oxygen to maintain saturations greater than 89%. Scheduled and as needed nebulizer treatments. Mucinex twice daily. Encourage pulmonary toilet with incentive spirometer and flutter valve. 11/01/2018-patient is admitted with COPD exacerbation and community-acquired pneumonia causing hypoxia. Cultures are negative so far. WBC count is 10,100. Afebrile. Presently on IV levo floxacillin. CT of the chest shows bilateral opacifications. Plan is to discontinue p.o. prednisone and start on IV Solu- Medrol. 11/02/2018-cultures are negative so far. Patient is presently on IV levo floxacillin. - Time Time Spent with patient: 15-24 minutes Medications reviewed and adjusted accordingly: Yes Anticipated discharge: Home
[2018-11-02] MEDS: FLUTICASONE NASAL SPRAY 50 MCG/SPRY 120 SPRAY/16 GM NASL SCH (22:42)
[2018-11-02] MEDS: SIMVASTATIN 40 MG TABLET PO SCH (22:43)
[2018-11-03] MEDS: IPRATROPIUM/ALBUTEROL 0.5-2.5 MG/3 ML AMPUL NEB SCH ×2 (02:18→07:40)
[2018-11-03 04:56] LABS: ABSOLUTE LYMPHOCYTES (AUTO) 0.5 10^3/uL (0.5-4.7); ABSOLUTE MONOCYTES (AUTO) 0.4 10^3/uL (0.1-1.4); ABSOLUTE NEUT (AUTO) 8.3 10^3/uL (1.7-8.2); HEMATOCRIT 36.9 % (37.9-51.0); HEMOGLOBIN 12.7 g/dL (13.5-17.0); LYMPHOCYTES % (AUTO) 5.4 % (13-45); MEAN CORPUSCULAR HEMOGLOBIN 30.1 pg (27.0-33.4); MEAN CORPUSCULAR HGB CONC 34.5 g/dL (32.0-36.0); MEAN CORPUSCULAR VOLUME 87 fl (80-97); MONOCYTES % (AUTO) 4.7 % (3-13); PLATELET COUNT 234 10^3/uL (150-450); RED BLOOD COUNT 4.23 10^6/uL (4.35-5.55); RED CELL DISTRIBUTION WIDTH 13.9 % (11.5-14.0); SEGMENTED NEUTROPHILS % (AUTO) 89.9 % (42-78); TOTAL CELLS COUNTED % (AUTO) 100 %; WHITE BLOOD COUNT 9.2 10^3/uL (4.0-10.5)
[2018-11-03 05:11] LABS: ALBUMIN 3.5 g/dL (3.5-5.0); ALKALINE PHOSPHATASE 64 U/L (38-126); ANION GAP 8 (5-19); ASPARTATE AMINO TRANSFERASE 20 U/L (17-59); BILIRUBIN,DIRECT 0.3 mg/dL (0.0-0.4); BILIRUBIN,TOTAL 0.5 mg/dL (0.2-1.3); BLOOD UREA NITROGEN 27 mg/dL (7-20); CALCIUM 9.6 mg/dL (8.4-10.2); CARBON DIOXIDE 24 mmol/L (22-30); CHLORIDE 100 mmol/L (98-107); GLUCOSE 107 mg/dL (75-110); POTASSIUM 4.8 mmol/L (3.6-5.0); TOTAL PROTEIN 5.8 g/dL (6.3-8.2)
[2018-11-03] MEDS: HEPARIN SOD (PORCINE) 5,000 UNIT/ML 1 ML VIAL SUBCUT SCH (05:39)
[2018-11-03] MEDS: FAMOTIDINE INJ/PF 20 MG/2 ML SDV IV SCH (09:24)
[2018-11-03] MEDS: METHYLPREDNISOLONE INJ 40 MG/1 ML SDV IV SCH (09:24)
[2018-11-03] MEDS: LOSARTAN POTASSIUM 50 MG TABLET PO SCH (09:25)
[2018-11-03] MEDS: METOPROLOL TARTRATE 25 MG TABLET PO SCH (09:25)
[2018-11-03] MEDS: TAMSULOSIN HCL 0.4 MG CAP.SR.24H PO SCH (09:25)
[2018-11-03] MEDS: GUAIFENESIN 600 MG TABLET.SA PO SCH (09:25)
[2018-11-03] MEDS: ASPIRIN 81 MG TABLET, ENT COATED PO SCH (09:26)
[2018-11-03] MEDS: DOCUSATE SODIUM 100 MG CAPSULE PO SCH (09:26)
[2018-11-03] MEDS: LEVOFLOXACIN 750 MG TABLET PO SCH (10:00)
[2018-11-03] MEDS: FLUTICASONE NASAL SPRAY 50 MCG/SPRY 120 SPRAY/16 GM NASL SCH (10:01)
[2018-11-03 12:09] VITALS: BP 146/71
--- NOTE | 2018-11-03 13:33 | PDOC DISCHARGE SUMMARY ---
General - Admit/Disc Date/PCP Admission Date/Primary Care Provider: 11/02/18 16:04 OFE CORTEZ Discharge Date: 11/03/18 - Discharge Diagnosis (1) COPD exacerbation Is this a current diagnosis for this admission?: Yes Summary: Secondary to community-acquired pneumonia. Supplemental oxygen as needed. Scheduled and as needed nebulizer treatments. P.o. prednisone. Twice daily Mucinex. Encouraged pulmonary toilet. Patient is followed by Dr. Serra; consider pulmonary consultation if delayed improvement. 11/01/2018-patient admitted with COPD exacerbation most likely secondary to community-acquired pneumonia. Pulse ox is 97% on 2 L. Receiving scheduled and as needed nebulizations. Plan is to change p.o. prednisone to IV Solu-Medrol today. Patient's director of student aid is Dr. Serra consultation will be placed for him. 11/02/2018-patient admitted with COPD exacerbation and associated with community- acquired pneumonia presently on IV Solu-Medrol 40 mg every 8 hours and oxygen 2 L nasal cannula receiving DuoNeb nebulizations. Patient is doing much better today. Plan is to continue the present management at least another day probably discharge home tomorrow. 11/03/[id number]-mmyq-old male admitted with COPD exacerbation he received IV Solu- Medrol IV antibiotics and nebulizer treatments she is much better today. And is going home today on levo floxacillin 5 mg p.o. daily patient also going home on p.o. prednisone and I gave him a prescription for DuoNeb nebulizer solution. (2) Hypertension Is this a current diagnosis for this admission?: Yes Summary: Cardiac diet. Continue home medication regiment once reconciled. 11/01/2018-patient blood pressure today is 127/76 stable. Plan is to continue the home medications. 11/02/2018-patient blood pressure now is 131/66 with heart rate of 77 plan is to continue the present management. 11/03/2018-patient blood pressure today is 157/66. Stable. Patient is advised to be compliant with his medications. (3) Hypoxemia Is this a current diagnosis for this admission?: Yes Summary: ABG demonstrated compensated respiratory alkalosis with hypoxia. No hypercapnia. Secondary to #1 and 2; management as above. 11/01/2018-patient admitted with hypoxia most likely secondary to underlying c ommunity-acquired pneumonia and COPD exacerbation. Today's pulse ox is 97% on 2 L. 11/02/2018-patient has a history of hypoxia admitted with hypoxia rather most likely secondary to COPD exacerbation and underlying community-acquired pneumonia pulse ox today is between 94 to 96% on 2 L. Chest examination bilateral entry was much better compared to yesterday. 11/03/2018-patient pulse ox today is 94% on room air. Patient did not require any home oxygen. (4) Pneumonia Is this a current diagnosis for this admission?: Yes Summary: Patient presents with dyspnea, wheezing, increased sputum production, anorexia and fatigue times several days unrelieved by p.o. prednisone and DuoNeb treatments at home over the previous week. CTA of the chest demonstrates bibasilar opacities. He is afebrile with normal WBC. Blood cultures pending. Sputum culture pending Patient is admitted to the medical floor. He is empirically placed on IV Levaquin Continue supplemental oxygen to maintain saturations greater than 89%. Scheduled and as needed nebulizer treatments. Mucinex twice daily. Encourage pulmonary toilet with incentive spirometer and flutter valve. 11/01/2018-patient is admitted with COPD exacerbation and community-acquired p neumonia causing hypoxia. Cultures are negative so far. WBC count is 10,100. Afebrile. Presently on IV levo floxacillin. CT of the chest shows bilateral opacifications. Plan is to discontinue p.o. prednisone and start on IV Solu- Medrol. 11/02/2018-cultures are negative so far. Patient is presently on IV levo floxacillin. 11/03/2018-chest x-ray shows questionable left lower lobe pneumonia afebrile. Patient is going home on levo floxacillin. Most likely patient has community- acquired pneumonia. Most likely gram-positive organisms responsible. - Additional Information Resuscitation Status: Full Code Discharge Diet: As Tolerated, Regular Discharge Activity: Activity As Tolerated Prescriptions: Ipratropium/Albuterol Sulfate [Duoneb 3 ml Ampul] 3 ml NEB Q6HP PRN #60 vial.neb PRN Reason: Levofloxacin [Levaquin 750 mg Tablet] 750 mg PO DAILY #7 tablet Prednisone 10 mg PO BID 5 Days #10 tablet Albuterol Sulfate [Proair HFA Inhalation Aerosol 8.5 gm MDI] 2 puff IH Q6HP PRN 30 Days #60 vial PRN Reason: Shortness Of Breath Home Medications: Aspirin [Ecotrin 81 mg EC Tablet] 81 mg PO DAILY 10/31/18 Benzonatate [Tessalon Perles 100 mg Capsule] 200 mg PO TIDP PRN 10/31/18 Ergocalciferol (Vitamin D2) [Drisdol 50,000 unit (1.25MG) Capsule] 50,000 unit PO MO@1000 10/31/18 Losartan Potassium [Cozaar 100 mg Tablet] 100 mg PO DAILY 10/31/18 Metoprolol Tartrate [Lopressor 25 mg Tablet] 25 mg PO DAILY 10/31/18 Simvastatin [Zocor 40 mg Tablet] 40 mg PO QHS 10/31/18 Tamsulosin HCl [Flomax 0.4 mg Cap.sr] 0.4 mg PO DAILY 10/31/18 Albuterol Sulfate [Proair HFA Inhalation Aerosol 8.5 gm MDI] 2 puff IH Q6HP PRN 30 Days #60 vial 11/03/18 Ipratropium/Albuterol Sulfate [Duoneb 3 ml Ampul] 3 ml NEB Q6HP PRN #60 vial.neb 11/03/18 Levofloxacin [Levaquin 750 mg Tablet] 750 mg PO DAILY #7 tablet 11/03/18 Prednisone 10 mg PO BID 5 Days #10 tablet 11/03/18 History of Present Illness History of Present Illness: JOMAR BROCK is a 73 year old male 73 year old male with a past medical history significant for hypertension, hyperlipidemia, COPD, and 50-year pack history (stop smoking in March of this year) who presents to the emergency department today with a complaint of dyspnea at rest and wheezing that was not relieved by 3 DuoNeb treatments at home. Patient was recently seen in urgent care and provided prednisone 40 mg daily; just completed a 4-day course of therapy without improvement in symptoms. He denies recent fever, chills, though does endorse tenacious sputum production. He is followed by Dr. Serra as an outpatient. Evaluation in the emergency department is fairly unremarkable other than tachypnea, hypoxia on room air, elevated d-dimer though with negative CTA of the chest, mild hyponatremia (131; appears chronic), and hyperkalemia of 5.3. Troponins are negative, proBNP 744. Chest x-ray is benign, CTA of the chest is negative for PE though does demonstrate bibasilar opacities and bibasilar bronchial wall thickening that was present on prior exams. EKG demonstrates sinus rhythm with LBBB (also present on prior EKGs). He is referred to the hospitalist service for admission and management of acute respiratory failure with hypoxia secondary to COPD exacerbation and possible bibasilar pneumonia. Hospital Course Hospital Course: 73 year old male with a past medical history significant for hypertension, hyperlipidemia, COPD, and 50-year pack history (stop smoking in March of this year) who presents to the emergency department today with a complaint of dyspnea at rest and wheezing that was not relieved by 3 DuoNeb treatments at home. Patient was recently seen in urgent care and provided prednisone 40 mg daily; just completed a 4-day course of therapy without improvement in symptoms. He denies recent fever, chills, though does endorse tenacious sputum production. He is followed by Dr. Serra as an outpatient. Evaluation in the emergency department is fairly unremarkable other than tachypnea, hypoxia on room air, elevated d-dimer though with negative CTA of the chest, mild hyponatremia (131; appears chronic), and hyperkalemia of 5.3. Troponins are negative, proBNP 744. Chest x-ray is benign, CTA of the chest is negative for PE though does demonstrate bibasilar opacities and bibasilar bronchial wall thickening that was present on prior exams. EKG demonstrates sinus rhythm with LBBB (also present on prior EKGs). He is referred to the hospitalist service for admission and management of acute respiratory failure with hypoxia secondary to COPD exacerbation and possible bibasilar pneumonia. 11/01/[id number]-mgwf-old male with history of smoking for more than 45 years, COPD, hypertension hyperlipidemia admitted with shortness of breath. He is receiving p.o. prednisone and IV Levaquin. CT of the chest suggestive of heterogeneous opacity at lung bases suggestive of infection. No acute events in the last 24 hours patient pulse ox is 97% on 2 L. Telemetry requested for a transfer to [place] then patient change his mind prefers to stay here until he gets better. 11/02/[id number]-vddw-old male admitted with COPD exacerbation and questionable pneumonia. He is doing much better today. Pulse ox is 94 to 96% on 2 L. Repeat chest x-ray shows questionable left lower lobe infiltrate. Plan is to continue the antibiotic therapy and nebulizer treatments today probably discharge home tomorrow. 11/03/2018-patient is doing much better today. Pulse oxes are much improved. Pulse ox is 94% on room air. He does not need any home oxygen. Patient is expressing desire to go home. I am going to discharge him home on p.o. antibiotic therapy. Cultures are negative so far. Physical Exam Vital Signs: Temp Pulse Resp BP Pulse Ox 97.8 F 80 16 134/57 H 92 11/03/18 11:31 11/03/18 11:31 11/03/18 11:31 11/03/18 11:31 11/03/18 11:31 Intake & Output 11/02/18 11/03/18 11/04/18 06:59 06:59 06:59 Intake Total 1896 1000 Balance 1896 1000 Weight 68.7 kg 68.9 kg General appearance: PRESENT: no acute distress Eye exam: PRESENT: PERRLA Mouth exam: PRESENT: moist, tongue midline Teeth exam: PRESENT: poor dentation Neck exam: ABSENT: carotid bruit, JVD, lymphadenopathy, thyromegaly Respiratory exam: PRESENT: clear to auscultation rebecca. ABSENT: rales, rhonchi, wheezes Cardiovascular exam: PRESENT: RRR. ABSENT: diastolic murmur, rubs, systolic murmur GI/Abdominal exam: PRESENT: normal bowel sounds, soft. ABSENT: distended, guarding, mass, organolmegaly, rebound, tenderness Rectal exam: PRESENT: deferred Extremities exam: PRESENT: full ROM. ABSENT: calf tenderness, clubbing, pedal edema Neurological exam: PRESENT: alert, awake, oriented to person, oriented to place, oriented to time, oriented to situation, CN II-XII grossly intact. ABSENT: motor sensory deficit Psychiatric exam: PRESENT: appropriate affect, normal mood. ABSENT: homicidal ideation, suicidal ideation Results Laboratory Results: 11/03/18 04:14 11/03/18 04:14 11/03/18 11/03/18 04:14 04:14 WBC 9.2 RBC 4.23 L Hgb 12.7 L Hct 36.9 L MCV 87 MCH 30.1 MCHC 34.5 RDW 13.9 Plt Count 234 Seg Neutrophils % 89.9 H Sodium 131.8 L Potassium 4.8 Chloride 100 Carbon Dioxide 24 Anion Gap 8 BUN 27 H Creatinine 1.23 Est GFR ( Amer) > 60 Glucose 107 Calcium 9.6 Magnesium 2.2 Total Bilirubin 0.5 AST 20 Alkaline Phosphatase 64 Total Protein 5.8 L Albumin 3.5 11/01/18 05:18 Sputum Gram Stain - Final 11/01/18 05:18 Sputum Sputum Culture - Final 10/31/18 10/31/18 10/31/18 08:30 08:30 08:30 Creatine Kinase 63 Troponin I < 0.012 NT-Pro-B Natriuret Pep 744 Impressions: Chest/Abdomen CTA 10/31/18 10:21 IMPRESSION: 1. Negative examination for pulmonary embolism. 2. There is increased heterogeneous opacity the bilateral lung bases compared to prior examination, consistent with infection or aspiration. 3. Emphysema. Chest X-Ray 11/02/18 00:00 IMPRESSION: Left lower lobe patchy opacities suspicious for pneumonia. Emphysematous change with additional bilateral mid lung linear opacities likely atelectasis or scarring. Qualifiers - * PATIENT BEING DISCHARGED WITH ANY OF THE FOLLOWING DIAGNOSIS: No VTE patient discharged on overlapping Therapy?: No Acute Heart Failure - Is this a Heart Failure Patient?: No Plan Time Spent: Greater than 30 Minutes
[2018-11-07] MEDS ORDERED: ERGOCALCIFEROL (VITAMIN D2) 50000 UNIT (1.25 MG) CAPSULE PO SCH (10:00)
== END 2018-11-03 12:51 | disposition home or self-care (01) | DRG 193 ==
LOC: ER 07:33 → EH 13:08 → UNDOADMOB 13:08 → INTOOBSV 13:08 → EH 13:08 → 4S 18:19 → OBSVTOIN 11-02 16:04
PROVIDERS: ADMIT Family Medicine; ATTEND Family Medicine
DX: J18.9 Pneumonia, unspecified organism (principal); J96.01 Acute respiratory failure with hypoxia; J44.1 Chronic obstructive pulmonary disease with (acute) exacerbation; E87.3 Alkalosis; E87.1 Hypo-osmolality and hyponatremia; E87.5 Hyperkalemia; E78.00 Pure hypercholesterolemia, unspecified; I10 Essential (primary) hypertension; Z87.891 Personal history of nicotine dependence; Z79.51 Long term (current) use of inhaled steroids; Z79.52 Long term (current) use of systemic steroids; Z79.899 Other long term (current) drug therapy
CPT/HCPCS: 36415; 71045; 71046; 71275; 80048; 80053; 81001; 82550; 82803; 83735; 83880; 84484; 85025; 85027; 85379; 87040; 87070; 87205; 93005; 93010; 94640; 94667; 94799; 96374; 99291; G0378; J1956; J2920; J2930; J3490; J7030; J7512; J7620; S0028

== ENCOUNTER 2018-11-26 01:01 | Inpatient (IN) | payer OTHER, MEDICARE ==
[2018-11-26] MEDS ORDERED: ALBUTEROL SULFATE 0.083% NEB 2.5 MG/3 ML AMPUL NEB ONE (01:18)
[2018-11-26] MEDS ORDERED: IPRATROPIUM/ALBUTEROL 0.5-2.5 MG/3 ML AMPUL NEB ONE (01:18)
[2018-11-26] MEDS ORDERED: METHYLPREDNISOLONE INJ 125 MG/2 ML SDV IV ONE (01:19)
[2018-11-26 01:49] LABS: ABSOLUTE BASOPHILS # (AUTO) 0.1 10^3/uL (0.0-0.2); ABSOLUTE EOSINOPHILS # (AUTO) 0.7 10^3/uL (0.0-0.6); ABSOLUTE LYMPHOCYTES (AUTO) 1.7 10^3/uL (0.5-4.7); ABSOLUTE MONOCYTES (AUTO) 0.6 10^3/uL (0.1-1.4); ABSOLUTE NEUT (AUTO) 2.6 10^3/uL (1.7-8.2); EOSINOPHILS % (AUTO) 12.8 % (0-6); HEMATOCRIT 39.5 % (37.9-51.0); HEMOGLOBIN 13.4 g/dL (13.5-17.0); LYMPHOCYTES % (AUTO) 29.2 % (13-45); MEAN CORPUSCULAR HEMOGLOBIN 30.1 pg (27.0-33.4); MEAN CORPUSCULAR VOLUME 89 fl (80-97); MONOCYTES % (AUTO) 10.6 % (3-13); PLATELET COUNT 206 10^3/uL (150-450); RED BLOOD COUNT 4.47 10^6/uL (4.35-5.55); RED CELL DISTRIBUTION WIDTH 13.7 % (11.5-14.0); SEGMENTED NEUTROPHILS % (AUTO) 46.4 % (42-78); TOTAL CELLS COUNTED % (AUTO) 100 %; WHITE BLOOD COUNT 5.7 10^3/uL (4.0-10.5)
[2018-11-26 02:05] LABS: ALBUMIN 3.9 g/dL (3.5-5.0); ALKALINE PHOSPHATASE 81 U/L (38-126); ANION GAP 8 (5-19); ASPARTATE AMINO TRANSFERASE 21 U/L (17-59); BILIRUBIN,DIRECT 0.1 mg/dL (0.0-0.4); BILIRUBIN,TOTAL 0.5 mg/dL (0.2-1.3); BLOOD UREA NITROGEN 15 mg/dL (7-20); CALCIUM 9.6 mg/dL (8.4-10.2); CARBON DIOXIDE 24 mmol/L (22-30); CHLORIDE 105 mmol/L (98-107); CREATINE KINASE 70 U/L (55-170); GLUCOSE 93 mg/dL (75-110); POTASSIUM 4.5 mmol/L (3.6-5.0); TOTAL PROTEIN 6.4 g/dL (6.3-8.2)
[2018-11-26 02:17] LABS: CREATINE KINASE MB 1.46 ng/mL (<4.55); NT PRO BNP 415 pg/mL (5-900); TROPONIN I < 0.012 ng/mL
--- NOTE | 2018-11-26 02:26 | RADIOLOGY REPORT (SQ) ---
EXAM DESCRIPTION: XR CHEST 1 VIEW COMPLETED DATE/TME: 11/26/2018 01:21 CLINICAL HISTORY: 73 years Male, sob COMPARISON: 06/22/18, 11/02/18 NUMBER OF VIEWS/TECHNIQUE: 1/AP FINDINGS: Clear lungs of adequate volume, and normal cardiac silhouette. No pneumothorax. Chronic calcified granuloma at the left proximal upper arm/axilla. Stable bony thorax. IMPRESSION: No significant change.
[2018-11-26] MEDS ORDERED: HYDRALAZINE HCL INJ/PF 20 MG/1 ML SDV IV PRN (04:09)
[2018-11-26] MEDS ORDERED: PREDNISONE 20 MG TABLET PO ONE ×2 (04:10→06:00)
[2018-11-26] MEDS ORDERED: ACETAMINOPHEN 325 MG TABLET PO PRN (04:11)
[2018-11-26] MEDS ORDERED: IPRATROPIUM/ALBUTEROL 0.5-2.5 MG/3 ML AMPUL NEB PRN (04:11)
--- NOTE | 2018-11-26 04:11 | ER Document Report ---
ED Respiratory Problem - General Chief Complaint: Respiratory Distress Stated Complaint: DIFFICULTY BREATHING Time Seen by Provider: 11/26/18 01:18 Primary Care Provider: RODRIGUE LANGE PA [Primary Care Provider] - Follow up as needed Information source: Patient Notes: 73-year-old male with COPD history quit smoking in March of this year. Short of breath wheezing coughing. Use for nebulizers at home not get any better. TRAVEL OUTSIDE OF THE [place] IN LAST 30 DAYS: No - HPI Patient complains to provider of: COPD - Related Data Allergies/Adverse Reactions: No Known Allergies Allergy (Verified 07/16/18 23:25) Past Medical History - Social History Smoking Status: Former Smoker Frequency of alcohol use: Social Drug Abuse: None Lives with: Spouse/Significant other Family History: None Patient has suicidal ideation: No Patient has homicidal ideation: No - Past Medical History Cardiac Medical History: Reports: Hx Hypercholesterolemia, Hx Hypertension Denies: Hx Congestive Heart Failure, Hx Coronary Artery Disease, Hx Heart Attack Pulmonary Medical History: Reports: Hx COPD Renal/ Medical History: Denies: Hx Peritoneal Dialysis Musculoskeletal Medical History: Reports Hx Arthritis Past Surgical History: Reports: Hx Appendectomy, Hx Tonsillectomy - Immunizations Hx Diphtheria, Pertussis, Tetanus Vaccination: Yes Review of Systems - Review of Systems EENT: No symptoms reported Cardiovascular: No symptoms reported Respiratory: Short of breath, Wheezing Gastrointestinal: No symptoms reported Genitourinary: No symptoms reported -: Yes All other systems reviewed and negative Physical Exam - Vital signs Vitals: Temp Pulse Resp BP Pulse Ox 97.7 F 106 H 36 H 170/77 H 91 L 11/26/18 01:04 11/26/18 01:04 11/26/18 01:04 11/26/18 01:04 11/26/18 01:04 - Notes Notes: PHYSICAL EXAMINATION: GENERAL: Well-appearing, well-nourished and in mild distress HEAD: Atraumatic, normocephalic. EYES: Pupils equal round and reactive to light, extraocular movements intact, sclera anicteric, conjunctiva are normal. ENT: nares patent, oropharynx clear without exudates. Moist mucous membranes. NECK: Normal range of motion, supple without lymphadenopathy LUNGS: Wheezing bilaterally. Mild distress. HEART: Regular rate and rhythm without murmurs ABDOMEN: Soft, nontender, normoactive bowel sounds. No guarding, no rebound. No masses appreciated. EXTREMITIES: Normal range of motion, bilateral lower extremity edema. 1+.. No cyanosis. NEUROLOGICAL: No focal neurological deficits. Moves all extremities spontaneously and on command. PSYCH: Normal mood, normal affect. SKIN: Warm, Dry, normal turgor, no rashes or lesions noted. Course - Re-evaluation Re-evalutation: 11/26/18 04:10 Wheezing is better. Still dyspneic. Still short of breath with talking to me sats are [id number] at rest. Sitting up and coughing it comes up to the 9394 range on room air. I spoke with Dr. Wagner the hospitalist. He will see the patient and evaluate for admission. 11/26/18 04:12 Patient is tremulous after all the nebulizers received and steroids. He is tremulous all over. I asked about alcohol. He does drink does not seem like he drinks daily. He had 3 beers tonight. - Vital Signs Vital signs: Temp Pulse Resp BP Pulse Ox 97.7 F 106 H 18 127/72 H 93 11/26/18 01:04 11/26/18 01:04 11/26/18 03:01 11/26/18 03:00 11/26/18 03:01 - Laboratory Result Diagrams: 11/26/18 01:15 11/26/18 01:15 Laboratory results interpreted by me: 11/26/18 11/26/18 01:15 01:15 Hgb 13.4 L Eos % (Auto) 12.8 H Absolute Eos (auto) 0.7 H Sodium 136.9 L - Diagnostic Test Radiology reviewed: Reports reviewed Discharge - Discharge Clinical Impression: COPD exacerbation Condition: Stable Disposition: ADMITTED INPATIENT Admitting Provider: Bernard (Hospitalist) Unit Admitted: Telemetry Referrals: RODRIGUE LANGE PA [Primary Care Provider] - Follow up as needed
[2018-11-26] MEDS ORDERED: FLUTICASONE NASAL SPRAY 50 MCG/SPRY 120 SPRAY/16 GM NASL SCH (04:15)
[2018-11-26] MEDS ORDERED: CHLORPHENIRAMINE MALEATE 4 MG TABLET PO SCH (04:15)
[2018-11-26] MEDS ORDERED: FLUTICASONE NASAL SPRAY 50 MCG/SPRY 120 SPRAY/16 GM NASL ONE (04:30)
[2018-11-26] MEDS ORDERED: AZITHROMYCIN INJ 500 MG VIAL IV PRN (04:34)
[2018-11-26] MEDS ORDERED: AZITHROMYCIN 500 MG in DEXTROSE 5%-WATER 250 ML IV ONE (05:00)
[2018-11-26] MEDS ORDERED: CHLORPHENIRAMINE MALEATE 4 MG TABLET ONE (05:10)
[2018-11-26] MEDS ORDERED: FLUTICASONE NASAL SPRAY 50 MCG/SPRY 120 SPRAY/16 GM ONE (05:10)
[2018-11-26] MEDS: HEPARIN SOD (PORCINE) 5,000 UNIT/ML 1 ML VIAL SUBCUT SCH ×3 (05:26→22:20)
[2018-11-26] MEDS: CHLORPHENIRAMINE MALEATE 4 MG TABLET PO SCH ×4 (05:27→23:42)
[2018-11-26] MEDS: DILTIAZEM HCL 60 MG TABLET PO SCH ×4 (05:27→23:42)
[2018-11-26 06:16] LABS: HEMATOCRIT 35.1 % (37.9-51.0); HEMOGLOBIN 11.9 g/dL (13.5-17.0); MEAN CORPUSCULAR HEMOGLOBIN 30.2 pg (27.0-33.4); MEAN CORPUSCULAR HGB CONC 33.9 g/dL (32.0-36.0); MEAN CORPUSCULAR VOLUME 89 fl (80-97); PLATELET COUNT 170 10^3/uL (150-450); RED BLOOD COUNT 3.95 10^6/uL (4.35-5.55); RED CELL DISTRIBUTION WIDTH 13.8 % (11.5-14.0)
--- NOTE | 2018-11-26 06:22 | PDOC H&P ---
History of Present Illness Admission Date/PCP: 11/26/18 04:22 OFE CORTEZ Patient complains of: Shortness of breath History of Present Illness: JOMAR BROCK is a 73 year old male with a past medical history of COPD, and recent recurring pneumonia. Patient presents with 5 days of rhinorrhea, nonproductive cough shortness of breath and subjective fever. In the emergency room is found to be tachypneic with use of accessory muscles and hypoxia. Chest x-ray shows chronic changes. CBC notable for eosinophilia. He receives albuterol, Atrovent and Solu-Medrol then referred to the hospitalist for admission. He admits recent initiation of unknown inhaler. He otherwise complains of constipation followed by 2 days of watery diarrhea without formed stool. Past Medical History Cardiac Medical History: Reports: Hyperlipidema, Hypertension Denies: Congestive Heart Failure, Coronary Artery Disease, Myocardial Inf arction Pulmonary Medical History: Reports: Chronic Obstructive Pulmonary Disease (COPD) Musculoskeltal Medical History: Reports: Arthritis Past Surgical History Past Surgical History: Reports: Appendectomy, Tonsillectomy Social History Information Source: Patient, [facility] Records Lives with: Spouse/Significant other Smoking Status: Former Smoker Frequency of Alcohol Use: Occasional Hx Recreational Drug Use: No Drugs: None Hx Prescription Drug Abuse: No - Advance Directive Resuscitation Status: Full Code Family History Family History: COPD Parental Family History Reviewed: Yes Children Family History Reviewed: Yes Sibling(s) Family History Reviewed.: Yes Medication/Allergy Home Medications: Aspirin [Ecotrin 81 mg EC Tablet] 81 mg PO DAILY 10/31/18 Benzonatate [Tessalon Perles 100 mg Capsule] 200 mg PO TIDP PRN 10/31/18 Ergocalciferol (Vitamin D2) [Drisdol 50,000 unit (1.25MG) Capsule] 50,000 unit PO MO@1000 10/31/18 Losartan Potassium [Cozaar 100 mg Tablet] 100 mg PO DAILY 10/31/18 Metoprolol Tartrate [Lopressor 25 mg Tablet] 25 mg PO DAILY 10/31/18 Simvastatin [Zocor 40 mg Tablet] 40 mg PO QHS 10/31/18 Tamsulosin HCl [Flomax 0.4 mg Cap.sr] 0.4 mg PO DAILY 10/31/18 Albuterol Sulfate [Proair HFA Inhalation Aerosol 8.5 gm MDI] 2 puff IH Q6HP PRN 30 Days #60 vial 11/03/18 Ipratropium/Albuterol Sulfate [Duoneb 3 ml Ampul] 3 ml NEB Q6HP PRN #60 vial.neb 11/03/18 Levofloxacin [Levaquin 750 mg Tablet] 750 mg PO DAILY #7 tablet 11/03/18 Prednisone 10 mg PO BID 5 Days #10 tablet 11/03/18 Allergies/Adverse Reactions: No Known Allergies Allergy (Verified 07/16/18 23:25) Review of Systems Constitutional: PRESENT: as per HPI, anorexia, fatigue, fever(s). ABSENT: chills, headache(s), weight gain, weight loss Eyes: ABSENT: visual disturbances Ears: ABSENT: hearing changes Cardiovascular: PRESENT: dyspnea on exertion. ABSENT: chest pain, edema, ort hropnea, palpitations Respiratory: PRESENT: as per HPI, cough, dyspnea. ABSENT: hemoptysis, sputum Gastrointestinal: PRESENT: constipation, diarrhea. ABSENT: abdominal pain, hematemesis, hematochezia, nausea, vomiting Genitourinary: ABSENT: dysuria, hematuria Musculoskeletal: ABSENT: joint swelling Integumentary: ABSENT: rash, wounds Neurological: ABSENT: abnormal gait, abnormal speech, confusion, dizziness, focal weakness, syncope Psychiatric: ABSENT: anxiety, depression, homidical ideation, suicidal ideation Endocrine: ABSENT: cold intolerance, heat intolerance, polydipsia, polyuria Hematologic/Lymphatic: ABSENT: easy bleeding, easy bruising Physical Exam Vital Signs: Temp Pulse Resp BP Pulse Ox 98.0 F 106 H 16 132/74 H 95 11/26/18 04:28 11/26/18 01:04 11/26/18 06:01 11/26/18 06:00 11/26/18 06:01 Intake & Output 11/24/18 11/25/18 11/26/18 11:59 11:59 11:59 Intake Total 250 Balance 250 Weight 76.2 kg General appearance: PRESENT: cooperative, mild distress, well-developed, well- nourished. ABSENT: disheveled Head exam: PRESENT: atraumatic, normocephalic Eye exam: PRESENT: conjunctiva pink, EOMI, PERRLA. ABSENT: scleral icterus Ear exam: PRESENT: normal external ear exam Mouth exam: PRESENT: moist, tongue midline Neck exam: ABSENT: carotid bruit, JVD, lymphadenopathy, thyromegaly Respiratory exam: PRESENT: accessory muscle use, crackles, prolonged expiratory phas, symmetrical, tachypnea Cardiovascular exam: PRESENT: RRR. ABSENT: diastolic murmur, rubs, systolic murmur Pulses: PRESENT: normal dorsalis pedis pul Vascular exam: PRESENT: normal capillary refill GI/Abdominal exam: PRESENT: diminished bowel sounds, hypoactive bowel sounds, normal bowel sounds, soft, tenderness - Left lower quadrant. ABSENT: distended, guarding, mass, organolmegaly, rebound Rectal exam: PRESENT: deferred Extremities exam: PRESENT: full ROM. ABSENT: calf tenderness, clubbing, pedal edema Neurological exam: PRESENT: alert, awake, oriented to person, oriented to place, oriented to time, oriented to situation, CN II-XII grossly intact. ABSENT: motor sensory deficit Psychiatric exam: PRESENT: appropriate affect, normal mood. ABSENT: homicidal ideation, suicidal ideation Skin exam: PRESENT: dry, intact, warm. ABSENT: cyanosis, rash Results Laboratory Results: 11/26/18 01:15 11/26/18 11/26/18 01:15 01:15 WBC 5.7 RBC 4.47 Hgb 13.4 L Hct 39.5 MCV 89 MCH 30.1 MCHC 34.0 RDW 13.7 Plt Count 206 Seg Neutrophils % 46.4 Sodium 136.9 L Potassium 4.5 Chloride 105 Carbon Dioxide 24 Anion Gap 8 BUN 15 Creatinine 1.13 Est GFR ( Amer) > 60 Glucose 93 Calcium 9.6 Total Bilirubin 0.5 AST 21 Alkaline Phosphatase 81 Total Protein 6.4 Albumin 3.9 11/26/18 11/26/18 11/26/18 01:15 01:15 04:45 Creatine Kinase 70 CK-MB (CK-2) 1.46 Troponin I < 0.012 < 0.012 NT-Pro-B Natriuret Pep 415 Impressions: Chest X-Ray 11/26/18 01:21 IMPRESSION: No significant change. Assessment and Plan - Diagnosis (1) Eosinophilic pneumonia Is this a current diagnosis for this admission?: Yes Plan: Pneumonia care set deployed, prednisone, azithromycin as recently finished a course of Levaquin. Flonase for upper respiratory symptoms, flutter valve and incentive spirometry ordered. Follow-up blood culture and CBC (2) COPD exacerbation Is this a current diagnosis for this admission?: Yes Plan: Supplemental oxygen, albuterol and Atrovent, flutter valve incentive spirometry. (3) Hypertension Qualifiers: Hypertension type: essential hypertension Qualified Code(s): I10 - Essential (primary) hypertension Is this a current diagnosis for this admission?: Yes Plan: With tachycardia, increased risk for development of A. fib given underlying COPD, trial Cardizem. (4) Tachycardia Is this a current diagnosis for this admission?: Yes Plan: Cardizem for high risk developing A. fib. (5) Constipation Is this a current diagnosis for this admission?: Yes Plan: Lactulose and Colace ordered - Time Time Spent with patient: 25-34 minutes - Inpatient Certification Medical Necessity: Need Close Monitoring Due to Risk of Patient Decompensation
[2018-11-26 06:37] LABS: ABSOLUTE LYMPHOCYTES# (MANUAL) 0.3 10^3/uL (0.5-4.7); ABSOLUTE MONOCYTES # (MANUAL) 0.2 10^3/uL (0.1-1.4); BASOPHILS % (MANUAL) 0 % (0-2); EOSINOPHILS % (MANUAL) 0 % (0-6); LYMPHOCYTES % (MANUAL) 5 % (13-45); MONOCYTES % (MANUAL) 3 % (3-13); SEGMENTED NEUTROPHILS % (MAN) 92 % (42-78); TOTAL CELLS COUNTED 100
[2018-11-26 06:41] LABS: ANISOCYTOSIS SLIGHT; OVALOCYTES SLIGHT; POIKILOCYTOSIS SLIGHT; TOXIC GRANULATION 1+; TOXIC VACUOLATION PRESENT
[2018-11-26 06:42] LABS: PLATELET COMMENT ADEQUATE
[2018-11-26] MEDS ORDERED: LACTULOSE SYRUP 20 GM/30 ML UDCUP PO ONE (06:45)
[2018-11-26] MEDS: IPRATROPIUM/ALBUTEROL 0.5-2.5 MG/3 ML AMPUL NEB SCH ×3 (07:59→21:11)
[2018-11-26] MEDS: METHYLPREDNISOLONE INJ 40 MG/1 ML SDV IV SCH ×2 (11:39→22:20)
--- NOTE | 2018-11-26 19:44 | EKG REPORT ---
SEVERITY:- ABNORMAL ECG - SINUS RHYTHM LEFT BUNDLE BRANCH BLOCK : Confirmed by: Niharika Morales MD 26-Nov-2018 19:43:57
[2018-11-26] MEDS: FLUTICASONE NASAL SPRAY 50 MCG/SPRY 120 SPRAY/16 GM NASL SCH (22:20)
[2018-11-27] MEDS: IPRATROPIUM/ALBUTEROL 0.5-2.5 MG/3 ML AMPUL NEB SCH ×2 (02:21→08:54)
[2018-11-27 05:03] LABS: ABSOLUTE LYMPHOCYTES (AUTO) 0.5 10^3/uL (0.5-4.7); ABSOLUTE MONOCYTES (AUTO) 0.3 10^3/uL (0.1-1.4); ABSOLUTE NEUT (AUTO) 7.7 10^3/uL (1.7-8.2); BASOPHILS % (AUTO) 0.1 % (0-2); HEMATOCRIT 37.8 % (37.9-51.0); HEMOGLOBIN 12.8 g/dL (13.5-17.0); LYMPHOCYTES % (AUTO) 5.5 % (13-45); MEAN CORPUSCULAR HEMOGLOBIN 29.7 pg (27.0-33.4); MEAN CORPUSCULAR HGB CONC 33.7 g/dL (32.0-36.0); MEAN CORPUSCULAR VOLUME 88 fl (80-97); MONOCYTES % (AUTO) 3.3 % (3-13); PLATELET COUNT 190 10^3/uL (150-450); RED BLOOD COUNT 4.29 10^6/uL (4.35-5.55); RED CELL DISTRIBUTION WIDTH 13.9 % (11.5-14.0); SEGMENTED NEUTROPHILS % (AUTO) 91.1 % (42-78); TOTAL CELLS COUNTED % (AUTO) 100 %; WHITE BLOOD COUNT 8.5 10^3/uL (4.0-10.5)
[2018-11-27] MEDS: DILTIAZEM HCL 60 MG TABLET PO SCH (05:19)
[2018-11-27] MEDS: HEPARIN SOD (PORCINE) 5,000 UNIT/ML 1 ML VIAL SUBCUT SCH (05:20)
[2018-11-27] MEDS: FLUTICASONE NASAL SPRAY 50 MCG/SPRY 120 SPRAY/16 GM NASL SCH (09:50)
[2018-11-27] MEDS: METHYLPREDNISOLONE INJ 40 MG/1 ML SDV IV SCH (09:50)
[2018-11-27] MEDS ORDERED: AZITHROMYCIN 500 MG in DEXTROSE 5%-WATER 250 ML IV SCH (10:00)
[2018-11-27 11:28] VITALS: BP 137/67
--- NOTE | 2018-11-27 17:00 | PDOC DISCHARGE SUMMARY ---
General - Admit/Disc Date/PCP Admission Date/Primary Care Provider: 11/26/18 11:50 OFE CORTEZ Discharge Date: 11/27/18 - Discharge Diagnosis (1) COPD exacerbation Is this a current diagnosis for this admission?: Yes (2) Hypertension Is this a current diagnosis for this admission?: Yes - Additional Information Resuscitation Status: Full Code Discharge Diet: As Tolerated Discharge Activity: Activity As Tolerated, Balance Activity w/Rest Prescriptions: Prednisone [Deltasone 20 mg Tablet] 20 mg PO BID 5 Days #10 tablet Home Medications: Aspirin [Ecotrin 81 mg EC Tablet] 81 mg PO DAILY 10/31/18 Ergocalciferol (Vitamin D2) [Drisdol 50,000 unit (1.25MG) Capsule] 50,000 unit PO MO@1000 10/31/18 Losartan Potassium [Cozaar 100 mg Tablet] 100 mg PO DAILY 10/31/18 Metoprolol Tartrate [Lopressor 25 mg Tablet] 25 mg PO DAILY 10/31/18 Simvastatin [Zocor 40 mg Tablet] 40 mg PO QHS 10/31/18 Tamsulosin HCl [Flomax 0.4 mg Cap.sr] 0.4 mg PO DAILY 10/31/18 Albuterol Sulfate [Proair HFA Inhalation Aerosol 8.5 gm MDI] 2 puff IH Q6HP PRN 30 Days #60 vial 11/03/18 Ipratropium/Albuterol Sulfate [Duoneb 3 ml Ampul] 3 ml NEB Q6HP PRN #60 vial.neb 11/03/18 Guaifenesin [Mucinex] 600 mg PO Q12 11/26/18 Umeclidinium Brm/Vilanterol Tr [Anoro Ellipta 62.5-25 Mcg INH] 2 inh IH DAILY 11/26/18 Prednisone [Deltasone 20 mg Tablet] 20 mg PO BID 5 Days #10 tablet 11/27/18 History of Present Illness History of Present Illness: Admitting hospitalist's H&P JOMAR BROCK is a 73 year old male with a past medical history of COPD, and recent recurring pneumonia. Patient presents with 5 days of rhinorrhea, nonproductive cough shortness of breath and subjective fever. In the emergency room is found to be tachypneic with use of accessory muscles and hypoxia. Chest x-ray shows chronic changes. CBC notable for eosinophilia. He receives albuterol, Atrovent and Solu-Medrol then referred to the hospitalist for admission. He admits recent initiation of unknown inhaler. He otherwise complains of constipation followed by 2 days of watery diarrhea without formed stool. Hospital Course Hospital Course: Patient is 74-year-old male who presented with shortness of breath and was found to have bilateral wheezing. He was admitted and treated for COPD exacerbation. He was started on IV steroids and scheduled breathing treatments. Patient did promptly improve with above treatments and returned to his baseline. On the morning of discharge, he was weaned off O2 and ambulated the hallways on room air without any acute issue or desaturation. He will be discharged home on 5 more days of prednisone. He will continue his home inhalers and will closely follow-up with his ore roaster. Physical Exam Vital Signs: Temp Pulse Resp BP Pulse Ox 98.2 F 74 20 137/67 H 96 11/27/18 11:27 11/27/18 11:27 11/27/18 11:27 11/27/18 11:27 11/27/18 11:27 Intake & Output 11/26/18 11/27/18 11/28/18 06:59 06:59 06:59 Intake Total 250 1121 Output Total 250 Balance 250 871 Weight 167 lb 15.876 oz 163 lb 12.855 oz General appearance: PRESENT: no acute distress, well-developed, well-nourished Head exam: PRESENT: atraumatic, normocephalic Eye exam: PRESENT: conjunctiva pink, EOMI, PERRLA. ABSENT: scleral icterus Ear exam: PRESENT: normal external ear exam Mouth exam: PRESENT: moist, tongue midline Neck exam: ABSENT: carotid bruit, JVD, lymphadenopathy, thyromegaly Respiratory exam: PRESENT: clear to auscultation rebecca. ABSENT: rales, rhonchi, wheezes Cardiovascular exam: PRESENT: RRR. ABSENT: diastolic murmur, rubs, systolic m urmur Pulses: PRESENT: normal dorsalis pedis pul GI/Abdominal exam: PRESENT: normal bowel sounds, soft. ABSENT: distended, guarding, mass, organolmegaly, rebound, tenderness Rectal exam: PRESENT: deferred Extremities exam: PRESENT: full ROM. ABSENT: calf tenderness, clubbing, pedal edema Neurological exam: PRESENT: alert, awake, oriented to person, oriented to place, oriented to time, oriented to situation, CN II-XII grossly intact. ABSENT: motor sensory deficit Results Laboratory Results: 11/27/18 04:35 11/26/18 01:15 11/27/18 04:35 WBC 8.5 RBC 4.29 L Hgb 12.8 L Hct 37.8 L MCV 88 MCH 29.7 MCHC 33.7 RDW 13.9 Plt Count 190 Seg Neutrophils % 91.1 H 11/26/18 11/26/18 11/26/18 01:15 01:15 04:45 Creatine Kinase 70 CK-MB (CK-2) 1.46 Troponin I < 0.012 < 0.012 NT-Pro-B Natriuret Pep 415 Impressions: Chest X-Ray 11/26/18 01:21 IMPRESSION: No significant change. Qualifiers - * PATIENT BEING DISCHARGED WITH ANY OF THE FOLLOWING DIAGNOSIS: No Acute Heart Failure - Is this a Heart Failure Patient?: No
== END 2018-11-27 12:04 | disposition home or self-care (01) | DRG 191 ==
LOC: ER 01:01 → INTOOBSV 04:22 → EH 04:22 → 3S 11:49 → OBSVTOIN 11:50
PROVIDERS: ADMIT Internal Medicine; ATTEND Internal Medicine
DX: J44.1 Chronic obstructive pulmonary disease with (acute) exacerbation (principal); J82 Pulmonary eosinophilia, not elsewhere classified; I10 Essential (primary) hypertension; E78.5 Hyperlipidemia, unspecified; K59.00 Constipation, unspecified; J44.0 Chronic obstructive pulmonary disease with (acute) lower respiratory infection; E78.00 Pure hypercholesterolemia, unspecified; Z79.899 Other long term (current) drug therapy; Z87.891 Personal history of nicotine dependence; Z79.82 Long term (current) use of aspirin
CPT/HCPCS: 36415; 71045; 80053; 82550; 82553; 83880; 84484; 85025; 93005; 93010; 94640; 94799; 96374; 99285; G0378; J0456; J1644; J2920; J2930; J3490; J7060; J7512; J7620

== ENCOUNTER 2019-01-01 02:58 | Emergency (ER) | payer OTHER, MEDICARE ==
[2019-01-01] MEDS ORDERED: IPRATROPIUM BROMIDE 0.02% NEB 0.5 MG/2.5 ML AMPUL NEB ONE ×3 (03:31→05:05)
[2019-01-01] MEDS ORDERED: ALBUTEROL SULFATE 0.083% NEB 2.5 MG/3 ML AMPUL NEB ONE ×3 (03:31→05:04)
[2019-01-01] MEDS ORDERED: METHYLPREDNISOLONE INJ 125 MG/2 ML SDV IV ONE (03:35)
--- NOTE | 2019-01-01 03:37 | ER Document Report ---
ED Respiratory Problem - General Chief Complaint: Breathing Difficulty Stated Complaint: BREATHING Primary Care Provider: RODRIGUE LANGE PA [Primary Care Provider] - Follow up as needed Information source: Patient TRAVEL OUTSIDE OF THE [place] IN LAST 30 DAYS: No - HPI Patient complains to provider of: COPD. No: Asthma, Chest pain, CHF, Cough, Hurts to breath, Short of breath, Other Onset: Yesterday Duration: Continuous Initiating Event: No: Allergy, Aspiration/Choking, Exertion, Exposure to chemicals, Exposure to dust, Exposure to fumes, Exposure to mold, Exposure to smoke, Out of meds, Sports/exercise, URI, Other Quality of pain: denies: No pain, Achy, Burning, Cramping, Dull, Fullness, Pressure, Sharp, Stabbing, Throbbing, Other Severity: None Context: Hx COPD. denies: DVT, Factor V Leiden, Hx asthma, Hx CHF, Malignancy, , Recent cardiac event, Recent foreign travel, Recent long distance trvl, Recent immobilization, Recent surgery, Smoker, Other Chest pain/discomfort: denies: Center, Constant, Heaviness, Intermittent, Left, Pain, Radiates to arm, Radiates to back, Radiates to jaw, Right, Tightness, Worse with deep breaths Cough: Productive Sputum amount: Moderate Sputum color: Yellow Associated symptoms: Cough, Short of breath. denies: None, Ankle/leg swelling, Allergy/hay fever, Anxiety, Bloody cough, Chest pain/discomfort, Chills, Congestion, Dental decay, Difficulty breathing, Earache, Extertional dyspnea, Facial pain, Fever, Headache, Heart racing, Hoarseness, Hurts to breathe, Hyperventilation, Jaw pain, Leg/calf/joint pain, Muscle spasms, Orthopnea, PND, Runny nose, Sinus pain/pressure, Sore Throat, Sweaty, Tingling face, Tingling hands, Unable to swallow, Toothache, Wheezing, Other - Related Data Allergies/Adverse Reactions: No Known Allergies Allergy (Verified 07/16/18 23:25) Home Medications: duonebs. simvastatin. metoprolol. asa. losartan Past Medical History - Social History Smoking Status: Former Smoker Frequency of alcohol use: Social Family History: COPD Patient has suicidal ideation: No Patient has homicidal ideation: No - Past Medical History Cardiac Medical History: Reports: Hx Hypercholesterolemia, Hx Hypertension Denies: Hx Congestive Heart Failure, Hx Coronary Artery Disease, Hx Heart Attack Pulmonary Medical History: Reports: Hx COPD Renal/ Medical History: Denies: Hx Peritoneal Dialysis Musculoskeletal Medical History: Reports Hx Arthritis Psychiatric Medical History: Denies: Hx Depression Past Surgical History: Reports: Hx Appendectomy, Hx Tonsillectomy - Immunizations Hx Diphtheria, Pertussis, Tetanus Vaccination: Yes Review of Systems - Review of Systems Constitutional: denies: No symptoms reported, See HPI, Chills, Diaphoresis, Fever, Malaise, Weakness, Other, Weight gain, Weight loss, Recent illness EENT: denies: No symptoms reported, See HPI, Eye pain, Eye discharge, Blurred vi david, Tearing, Double vision, Ear pain, Ear discharge, Nose pain, Nose congestion, Nose discharge, Sinus pressure, Sinus discharge, Throat pain, Difficulty swallowing, Throat swelling, Mouth pain, Mouth swelling, Dental problem, Vertigo, Other Cardiovascular: denies: No symptoms reported, See HPI, Chest pain, Palpitations, Heart racing, Orthopnea, Dyspnea, Syncope, Dizziness, Lightheaded, Edema, Other, Paroxysmal Nocturnal Dysp Respiratory: Cough, Short of breath, Sputum, Wheezing. denies: No symptoms reported, See HPI, Hurts to breathe, Hemoptysis, Stridor, Other Gastrointestinal: denies: No symptoms reported, See HPI, Abdomen distended, Abdominal pain, Diarrhea, Nausea, Vomiting, Constipation, Blood streaked bowels, Poor appetite, Poor fluid intake, Blood in vomit, Black stools, Rectal bleeding, Last bowel movement, Fecal incontinence, Other -: Yes All other systems reviewed and negative Physical Exam - Vital signs Vitals: Temp Pulse BP 98 F 98 153/98 H 01/01/19 03:02 01/01/19 03:02 01/01/19 03:02 Notes: PHYSICAL EXAMINATION: GENERAL: Well-appearing, well-nourished and in no acute distress. HEAD: Atraumatic, normocephalic. EYES: Pupils equal round and reactive to light, extraocular movements intact, sclera anicteric, conjunctiva are normal. ENT: nares patent, oropharynx clear without exudates. Moist mucous membranes. NECK: Normal range of motion, supple without lymphadenopathy LUNGS: Wheezes heard throughout bilaterally and decreased breath sounds at the bases. No rales or rhonchi appreciated HEART: Regular rate and rhythm without murmurs ABDOMEN: Soft, nontender, normoactive bowel sounds. No guarding, no rebound. No masses appreciated. EXTREMITIES: Normal range of motion, no pitting or edema. No cyanosis. NEUROLOGICAL: No focal neurological deficits. Moves all extremities spontaneously and on command. PSYCH: Normal mood, normal affect. SKIN: Warm, Dry, normal turgor, no rashes or lesions noted. Course - Vital Signs Vital signs: Temp Pulse Resp BP Pulse Ox 98 F 98 153/98 H 01/01/19 03:02 01/01/19 03:02 01/01/19 03:02 - Laboratory Result Diagrams: 01/01/19 04:19 01/01/19 04:19 Laboratory results interpreted by me: 01/01/19 04:19 RDW 15.0 H Eos % (Auto) 8.1 H - Diagnostic Test Radiology reviewed: Image reviewed, Reports reviewed - EKG Interpretation by Me EKG shows normal: Sinus rhythm Rate: Normal [place]/QRS: LBBB When compared to previous EKG there are: No significant change - Transfer of Care Notes: 01/01/19 05:06 Was reexamined after his first breathing treatment sats are now up about 95-96% good movement of air bilaterally however some persistent wheezes will repeat this he feels much better he may be L be discharged if his labs are good and he is able to walk without any shortness of breath that more than usual. Patient will be checked out to Dr. Perrin at 5:30 AM and will make appropriate intervention unless the above occurs 01/01/19 05:19 Discharge - Discharge Clinical Impression: COPD exacerbation Disposition: HOME, SELF-CARE Instructions: Chronic Obstructive Lung Disease ([facility]) Additional Instructions: Use your medicines as directed return if worse follow-up with your regular doctor Prescriptions: Prednisone [Deltasone 20 mg Tablet] 2 tab PO DAILY 5 Days #10 tablet Referrals: RODRIGUE LANGE PA [Primary Care Provider] - Follow up as needed
[2019-01-01 04:52] LABS: ABSOLUTE BASOPHILS # (AUTO) 0.1 10^3/uL (0.0-0.2); ABSOLUTE EOSINOPHILS # (AUTO) 0.6 10^3/uL (0.0-0.6); ABSOLUTE LYMPHOCYTES (AUTO) 1.7 10^3/uL (0.5-4.7); ABSOLUTE MONOCYTES (AUTO) 0.7 10^3/uL (0.1-1.4); ABSOLUTE NEUT (AUTO) 4.2 10^3/uL (1.7-8.2); EOSINOPHILS % (AUTO) 8.1 % (0-6); HEMATOCRIT 42.9 % (37.9-51.0); HEMOGLOBIN 13.9 g/dL (13.5-17.0); LYMPHOCYTES % (AUTO) 23.2 % (13-45); MEAN CORPUSCULAR HEMOGLOBIN 29.7 pg (27.0-33.4); MEAN CORPUSCULAR HGB CONC 32.4 g/dL (32.0-36.0); MEAN CORPUSCULAR VOLUME 92 fl (80-97); MONOCYTES % (AUTO) 9.3 % (3-13); PLATELET COUNT 151 10^3/uL (150-450); RED BLOOD COUNT 4.69 10^6/uL (4.35-5.55); SEGMENTED NEUTROPHILS % (AUTO) 58.4 % (42-78); TOTAL CELLS COUNTED % (AUTO) 100 %; WHITE BLOOD COUNT 7.3 10^3/uL (4.0-10.5)
--- NOTE | 2019-01-01 04:52 | RADIOLOGY REPORT (SQ) ---
EXAM DESCRIPTION: XR CHEST 1 VIEW COMPLETED DATE/TME: 01/01/2019 03:33 CLINICAL HISTORY: 73 years, Male, SHORTNESS OF BREATH COMPARISON: 11/26/2018 NUMBER OF VIEWS: One TECHNIQUE: AP view of the chest LIMITATIONS: None. FINDINGS: Lungs are hyperinflated but clear. The heart is normal in size. There is no pneumothorax or pleural effusion. The bones are unremarkable. IMPRESSION: Emphysematous appearing lungs. copyright 2010 [id number]- All Rights Reserved
[2019-01-01 05:24] LABS: ALBUMIN 3.7 g/dL (3.5-5.0); ALKALINE PHOSPHATASE 68 U/L (38-126); ANION GAP 10 (5-19); ASPARTATE AMINO TRANSFERASE 23 U/L (17-59); BILIRUBIN,DIRECT 0.1 mg/dL (0.0-0.4); BILIRUBIN,TOTAL 0.6 mg/dL (0.2-1.3); BLOOD UREA NITROGEN 14 mg/dL (7-20); CALCIUM 9.1 mg/dL (8.4-10.2); CARBON DIOXIDE 21 mmol/L (22-30); CHLORIDE 104 mmol/L (98-107); GLUCOSE 97 mg/dL (75-110); POTASSIUM 4.5 mmol/L (3.6-5.0); TOTAL PROTEIN 6.2 g/dL (6.3-8.2)
[2019-01-01] MEDS ORDERED: PREDNISONE 20 MG TABLET PO ONE (06:14)
--- NOTE | 2019-01-01 06:16 | ER Document Report ---
Doctor's Note Notes: 01/01/19 06:15 73-year-old patient with COPD has had several breathing treatments since he arrived. He has had Solu-Medrol 125 mg IV. At this time he states his breathing is much better and is near or at his baseline. O2 saturations 96% on room air. He is a little jittery from all albuterol but he states otherwise he feels well. He states that he has had a productive cough but it is remained clear. He does feel comfortable going home and continuing his breathing treatments at home. I will give him 60 mg prednisone orally now, and he is advised to wait until tomorrow morning to start the prescribed prednisone.
[2019-01-01 06:27] VITALS: BP 131/68
--- NOTE | 2019-01-02 16:55 | EKG REPORT ---
SEVERITY:- ABNORMAL ECG - SINUS RHYTHM MULTIPLE VENTRICULAR PREMATURE COMPLEXES LEFT BUNDLE BRANCH BLOCK : Confirmed by: Niharika Morales MD 02-Jan-2019 16:54:30
== END 2019-01-01 06:27 | disposition home or self-care (01) ==
LOC: ER 02:58
DX: J44.1 Chronic obstructive pulmonary disease with (acute) exacerbation (principal); E78.00 Pure hypercholesterolemia, unspecified; I10 Essential (primary) hypertension
CPT/HCPCS: 93005; 94640 ×2; 99285; 96374; 36415; 85025; 80053; 84484; 71045; 93010; J2930; J7512; J3490

== ENCOUNTER 2019-05-23 20:54 | Emergency (ER) | payer OTHER, MEDICARE ==
[2019-05-23] MEDS ORDERED: IPRATROPIUM/ALBUTEROL 0.5-2.5 MG/3 ML AMPUL NEB ONE (21:23)
[2019-05-23] MEDS ORDERED: METHYLPREDNISOLONE INJ 125 MG/2 ML SDV IV ONE (21:23)
[2019-05-23] MEDS ORDERED: ALBUTEROL SULFATE 0.083% NEB 2.5 MG/3 ML AMPUL NEB ONE (21:23)
--- NOTE | 2019-05-23 21:23 | ER Document Report ---
ED Medical Screen (RME) - General Chief Complaint: Breathing Difficulty Stated Complaint: HARD TIME BREATHING Time Seen by Provider: 05/23/19 21:17 Primary Care Provider: RODRIGUE LANGE PA [Primary Care Provider] - Follow up as needed TRAVEL OUTSIDE OF THE [place] IN LAST 30 DAYS: No - HPI Notes: 05/23/19 21:20 Patient is a 74-year-old male with a history of COPD presents complaining of feeling some chest tightness, wheezing, productive cough of clear sputum and "bubbly" that began over the past day. Patient states that he had symptoms a couple days ago, but they improved on their own. He has been using his breathing treatments at home. Denies drug allergies. No fever, abdominal pain, vomiting/diarrhea. I have treated and performed a rapid initial assessment of this patient. A comprehensive ED assessment and evaluation of the patient, analysis of test results and completion of medical decision making process will be conducted by additional ED providers. PHYSICAL EXAMINATION: GENERAL: Well-appearing, well-nourished and in no acute distress. A&Ox4. Answers questions appropriately. Lungs: Somewhat diminished at the base bilaterally. No retractions. Heart: RRR Extremities: No edema - Related Data Allergies/Adverse Reactions: No Known Allergies Allergy (Verified 07/16/18 23:25) Home Medications: Aspirin. Losartan. TAnsulosin. Metoprolol. Simvastatin. cingular. Benzonatate. Ipatropium. albuterol sulfate inhalation Past Medical History - Social History Chew tobacco use (# tins/day): No Frequency of alcohol use: Occasional Drug Abuse: None - Past Medical History Cardiac Medical History: Reports: Hx Hypercholesterolemia, Hx Hypertension Denies: Hx Congestive Heart Failure, Hx Coronary Artery Disease, Hx Heart Attack Pulmonary Medical History: Reports: Hx COPD Renal/ Medical History: Denies: Hx Peritoneal Dialysis Musculoskeltal Medical History: Reports Hx Arthritis Psychiatric Medical History: Denies: Hx Depression Past Surgical History: Reports: Hx Appendectomy, Hx Tonsillectomy - Immunizations Hx Diphtheria, Pertussis, Tetanus Vaccination: Yes Physical Exam - Vital signs Vitals: Temp Pulse Resp BP Pulse Ox 98.5 F 105 H 18 138/67 H 97 05/23/19 21:02 05/23/19 21:02 05/23/19 21:02 05/23/19 21:02 05/23/19 21:02 Course - Vital Signs Vital signs: Temp Pulse Resp BP Pulse Ox 98.5 F 105 H 18 138/67 H 97 05/23/19 21:02 05/23/19 21:02 05/23/19 21:02 05/23/19 21:02 05/23/19 21:02 Doctor's Discharge - Discharge Referrals: RODRIGUE LANGE PA [Primary Care Provider] - Follow up as needed
[2019-05-23 21:49] LABS: ABSOLUTE BASOPHILS # (AUTO) 0.1 10^3/uL (0.0-0.2); ABSOLUTE EOSINOPHILS # (AUTO) 1.1 10^3/uL (0.0-0.6); ABSOLUTE LYMPHOCYTES (AUTO) 1.7 10^3/uL (0.5-4.7); ABSOLUTE MONOCYTES (AUTO) 0.7 10^3/uL (0.1-1.4); BASOPHILS % (AUTO) 1.1 % (0-2); EOSINOPHILS % (AUTO) 12.7 % (0-6); HEMATOCRIT 40.6 % (37.9-51.0); HEMOGLOBIN 13.9 g/dL (13.5-17.0); LYMPHOCYTES % (AUTO) 19.4 % (13-45); MEAN CORPUSCULAR HGB CONC 34.2 g/dL (32.0-36.0); MEAN CORPUSCULAR VOLUME 88 fl (80-97); PLATELET COUNT 235 10^3/uL (150-450); RED BLOOD COUNT 4.64 10^6/uL (4.35-5.55); RED CELL DISTRIBUTION WIDTH 13.8 % (11.5-14.0); SEGMENTED NEUTROPHILS % (AUTO) 58.8 % (42-78); TOTAL CELLS COUNTED % (AUTO) 100 %; WHITE BLOOD COUNT 8.5 10^3/uL (4.0-10.5)
--- NOTE | 2019-05-23 22:06 | RADIOLOGY REPORT (SQ) ---
EXAM DESCRIPTION: XR CHEST 2 VIEWS COMPLETED DATE/TME: 05/23/2019 21:23 CLINICAL HISTORY: 74 years, Male, cough COMPARISON: None. NUMBER OF VIEWS: 2 TECHNIQUE: LIMITATIONS: None. FINDINGS: Cardiomegaly mediastinal silhouette is normal. Interstitial prominence presumed chronic. No consolidation or edema effusion or pneumothorax IMPRESSION: Presumed chronic change. No acute process copyright 2010 [employer]- All Rights Reserved
[2019-05-23 22:25] LABS: ALBUMIN 3.8 g/dL (3.5-5.0); ALKALINE PHOSPHATASE 80 U/L (38-126); ANION GAP 11 (5-19); ASPARTATE AMINO TRANSFERASE 20 U/L (17-59); BILIRUBIN,TOTAL 0.4 mg/dL (0.2-1.3); BLOOD UREA NITROGEN 15 mg/dL (7-20); CALCIUM 9.2 mg/dL (8.4-10.2); CARBON DIOXIDE 24 mmol/L (22-30); CHLORIDE 99 mmol/L (98-107); GLUCOSE 88 mg/dL (75-110); POTASSIUM 4.4 mmol/L (3.6-5.0); TOTAL PROTEIN 6.2 g/dL (6.3-8.2)
[2019-05-23] MEDS ORDERED: NORMAL SALINE 1000 ML 1,000 ML IV ONE (23:01)
--- NOTE | 2019-05-23 23:13 | ER Document Report ---
ED Respiratory Problem - General Chief Complaint: Productive Cough Stated Complaint: HARD TIME BREATHING Time Seen by Provider: 05/23/19 21:17 Primary Care Provider: RODRIGUE LANGE PA [Primary Care Provider] - Follow up as needed Information source: Patient, Relative Notes: Patient is a 74-year-old male presenting to the emergency department chief complaint of shortness of breath. Patient states that he has not smoked any cigarettes in many years however approximately 2 to 3 days ago he started wheezing and had much more congestion and increased coughing. Patient states he has both albuterol for a nebulizer as well as an MDI inhaler. Patient states he has been taking Delsym to help with his cough drinking plenty of fluids and resting. Patient's has a similar cough at this time. Patient did have a pneumonia shot but has not had a flu shot however patient states he has been afebrile and has not had any aches or pains. Patient denies nausea vomiting diarrhea travel history trauma history or any obvious sick contacts. TRAVEL OUTSIDE OF THE [place] IN LAST 30 DAYS: No - HPI Patient complains to provider of: COPD, Cough, Short of breath Onset: Yesterday Duration: Worse/persistent Quality of pain: Achy Severity: Mild Pain Level: 1 Context: Hx COPD Short of Breath: Moderate Chest pain/discomfort: Intermittent Cough: Nonproductive At home treatment: Bronchodilators Associated symptoms: None Similar symptoms previously: Yes Recently seen / treated by doctor: No - Related Data Allergies/Adverse Reactions: No Known Allergies Allergy (Verified 07/16/18 23:25) Home Medications: Aspirin. Losartan. TAnsulosin. Metoprolol. Simvastatin. cingular. Benzonatate. Ipatropium. albuterol sulfate inhalation Past Medical History - General Information source: Patient, Relative - Social History Smoking Status: Former Smoker Chew tobacco use (# tins/day): No Frequency of alcohol use: Occasional Drug Abuse: None Lives with: Spouse/Significant other Family History: COPD Patient has suicidal ideation: No Patient has homicidal ideation: No - Past Medical History Cardiac Medical History: Reports: Hx Hypercholesterolemia, Hx Hypertension Denies: Hx Congestive Heart Failure, Hx Coronary Artery Disease, Hx Heart Attack Pulmonary Medical History: Reports: Hx COPD Renal/ Medical History: Denies: Hx Peritoneal Dialysis Musculoskeletal Medical History: Reports Hx Arthritis Psychiatric Medical History: Denies: Hx Depression Past Surgical History: Reports: Hx Appendectomy, Hx Tonsillectomy - Immunizations Hx Diphtheria, Pertussis, Tetanus Vaccination: Yes Review of Systems - Review of Systems Notes: REVIEW OF SYSTEMS: CONSTITUTIONAL : Denies fever, chills, or sweats. Denies recent illness. EENT: Denies eye, ear, throat, or mouth pain or symptoms. Denies nasal or sinus congestion. CARDIOVASCULAR: Denies chest pain. RESPIRATORY: Per HPI GASTROINTESTINAL: Denies abdominal pain. Denies nausea, vomiting, or diarrhea. Denies constipation. GENITOURINARY: Denies difficulty urinating, painful urination, burning, frequency, or blood in urine. MUSCULOSKELETAL: Denies neck or back pain or joint pain or swelling. SKIN: Denies rash or skin lesions. HEMATOLOGIC : Denies easy bruising or bleeding. NEUROLOGICAL: Denies altered mental status or loss of consciousness. Denies headache. Denies weakness or paralysis or loss of use of either side. Denies problems with gait or speech. Denies sensory or motor loss. PSYCHIATRIC: Denies suicidal or homicidal ideations 10 Systems are negative unless otherwise specified above Physical Exam - Vital signs Vitals: Temp Pulse Resp BP Pulse Ox 98.5 F 105 H 18 138/67 H 97 05/23/19 21:02 05/23/19 21:02 05/23/19 21:02 05/23/19 21:02 05/23/19 21:02 - Notes Notes: PHYSICAL EXAMINATION: GENERAL: Well-appearing, well-nourished and in no acute distress. HEAD: Atraumatic, normocephalic. EYES: Pupils equal round and reactive to light, extraocular movements intact, sclera anicteric, conjunctiva are normal. ENT: nares patent, oropharynx clear without exudates. Moist mucous membranes. NECK: Normal range of motion, supple without lymphadenopathy, no appreciable JVD LUNGS: Lungs clear to auscultation bilaterally and equal. No wheezes rales or rhonchi. HEART: Regular rate and rhythm without murmurs ABDOMEN: Soft, nontender, normal bowel sounds. No guarding, no rebound. No masses appreciated. EXTREMITIES: Active full range of motion, no pitting or edema. No cyanosis. 2+ pulses x4 NEUROLOGICAL: No focal neurological deficits. Moves all extremities spontaneously and on command. However at this time the patient does have a tremor but he states it is because of the albuterol treatment. SKIN: Warm, Dry, and intact. Normal turgor, no rashes or lesions noted. Course - Re-evaluation Re-evalutation: 05/23/19 23:56 Patient has been reevaluated several times while in the emergency department. Patient has remained stable. Patient has actually improved his breathing status since being here. He did receive 125 mg of Solu-Medrol IV and a DuoNeb breathing treatment. EKG was obtained demonstrating sinus rhythm with a left bundle branch block 91 bpm which is similar to prior EKG of January 01, 2019. I discussed the laboratory EKG and radiologic results with the patient he is already taking the medications which I would normally prescribe someone with an exacerbation. At this time there will be no new medications started. Patient is breathing much more easily and has not had any coughing spells while in the department under my care. Patient is agreeable and stable at time of discharge. - Vital Signs Vital signs: Temp Pulse Resp BP Pulse Ox 98.3 F 92 20 145/68 H 96 05/23/19 23:36 05/23/19 23:36 05/23/19 23:36 05/23/19 23:36 05/23/19 23:36 - Laboratory Result Diagrams: 05/23/19 21:26 05/23/19 21:26 Laboratory results interpreted by me: 05/23/19 05/23/19 21:26 21:26 Eos % (Auto) 12.7 H Absolute Eos (auto) 1.1 H Sodium 133.5 L Creatinine 1.52 H Est GFR ( Amer) 55 L Est GFR (MDRD) Non-Af 45 L Total Protein 6.2 L - Diagnostic Test Radiology reviewed: Reports reviewed - EKG Interpretation by Me EKG shows normal: Sinus rhythm Rate: Normal Rhythm: NSR [place]/QRS: LBBB When compared to previous EKG there are: No significant change Discharge - Discharge Clinical Impression: COPD with exacerbation Condition: Stable Disposition: HOME, SELF-CARE Additional Instructions: Bronchitis You have acute bronchitis. This disease is an infection or inflammation of the air passageways in your lungs. Symptoms usually include cough, low grade fever, shortness of breath, and wheezing. The cough usually persists for a couple of weeks. Most cases of bronchitis get better without antibiotics. We prescribe antibiotics when we believe bacteria are damaging your airways, or if there's high risk the bronchitis will worsen into pneumonia. Increase your fluid intake. A cool mist humidifier may make your lungs more comfortable. An expectorant (cough medicine that loosens phlegm) can help. If you smoke, STOP!!! Recovery from bronchitis can be somewhat slow, but you should see improvement within a day or two. Repeated episodes of bronchitis may result in lung damage -- for example, chronic bronchitis, recurrent pneumonias, or emphysema. Call the doctor if you develop increasing fever, shortness of breath, chest pain, bloody sputum, or otherwise worsen. If you have not improved at all after several days, contact the physician. Follow-up with your family doctor or your hat parts cutter machine in the next couple of days. Return to the emergency department for worsening symptoms. Continue taking medications as prescribed. Referrals: RODRIGUE LANGE PA [Primary Care Provider] - Follow up as needed
[2019-05-23 23:38] VITALS: BP 145/68
--- NOTE | 2019-05-24 17:25 | EKG REPORT ---
SEVERITY:- ABNORMAL ECG - SINUS RHYTHM LEFT BUNDLE BRANCH BLOCK : Confirmed by: Anshul Drake 24-May-2019 17:24:33
== END 2019-05-24 | disposition home or self-care (01) ==
LOC: ER 20:54
DX: I44.7 Left bundle-branch block, unspecified (principal); J44.1 Chronic obstructive pulmonary disease with (acute) exacerbation; R25.1 Tremor, unspecified; E78.00 Pure hypercholesterolemia, unspecified; I10 Essential (primary) hypertension; Z79.899 Other long term (current) drug therapy; Z79.82 Long term (current) use of aspirin; Z87.891 Personal history of nicotine dependence
CPT/HCPCS: 93005; 94640; 99285; 96374; 36415; 85025; 80053; 84484; 71046; 93010; J2930; J7620

== ENCOUNTER 2019-11-21 09:25 | Day surgery (SDC) | payer MEDICARE, OTHER ==
[~2019-11-21 09:25] MED LIST: CHONDR SU A NA/HYALUR INTRAOC KIT (SURGICARE) ONE; CYCLOPENTOLATE 0.2%/PHENYLEPHRINE 1% OPH SOLN 2 ML OS PRN; DORZOLAMIDE HCL 2%/TIMOLOL MALEAT 0.5% OPH SOLN 10 ML OS PRN; EPINEPHRINE INJ/PF 1 MG/1 ML AMPULE ONE; KETOROLAC TROMETHAMINE 0.45% 4 DROP/0.4 ML DROPERETTE OS PRN; LIDOCAINE 1%/PHENYLEPHRINE 1.5% 0.8 ML SYRINGE ONE
[2019-11-21] MEDS ORDERED: ONDANSETRON HCL INJ/PF 4 MG/2 ML SDV ONE (11:39)
[2019-11-21] MEDS ORDERED: FENTANYL CITRATE INJ/PF 100 MCG/2 ML AMPUL ONE ×2 (11:40→12:15)
[2019-11-21] MEDS ORDERED: MIDAZOLAM 2 MG/2 ML INJ ONE ×2 (11:40→12:14)
[2019-11-21] MEDS: TROPICAMIDE 1% OPH SOLN 15 ML OS PRN ×3 (11:53→12:22)
[2019-11-21] MEDS: TETRACAINE HCL 0.5% OPH SOLN 4 ML OS PRN ×3 (11:53→12:53)
[2019-11-21] MEDS: BESIFLOXACIN HCL 0.6% OPH SUSP 5 ML BOTTLE OS PRN ×3 (11:54→13:13)
[2019-11-21] MEDS: CYCLOPENTOLATE 0.2%/PHENYLEPHRINE 1% OPH SOLN 2 ML OS PRN ×3 (11:54→12:22)
--- NOTE | 2019-11-22 21:02 | Operative Report ---
Operative Report-[facility] Operative Report: PREOPERATIVE DIAGNOSIS: Nuclear, cortical and posterior subcapsular cataract, left eye POSTOPERATIVE DIAGNOSIS: Nuclear, cortical and posterior subcapsular cataracts, left eye PROCEDURE: Phacoemulsification and posterior chamber intraocular lens implant, left eye PROCEDURE DATE: [November 21, 2019] SURGEON: Zack Almendarez MD Next SPECIAL EDUCATION CURRICULUM SPECIALIST: [Patricia] ANESTHESIA: Topical with IV sedation next COMPLICATIONS: None TISSUE TO PATHOLOGY: None ESTIMATED BLOOD LOSS: None INDICATION FOR SURGERY: [Mr. Vidal is a 74 year old male] Who presents to our clinic complaining of difficulty seeing, to read and drive due to blurry vision in both eyes. On examination, she was found to have best corrected visual acuity of [20/40] in the left eye. Ophthalmoscopy revealed a [+2] nuclear, [+2] corneal degeneration, [trace] posterior subcapsular cataract in the left eye with normal appearing cornea, vitreous, retina and optic nerve. I discussed the findings of the exam with the patient. We discussed the risks, benefits and alternatives of cataract extraction and intraocular lens implant in the left eye as a means of improving her vision. Risks that were discussed with the patient include infection, bleeding, retinal detachment and possible need for additional surgery. The patient understands that she may need to wear glasses after surgery. After discussion, the patient indicated her interest in having this procedure performed by signing an informed witness consent form. REPORT OF PROCEDURE: On the day of surgery, the patient was given a topical application to the left eye to consist of drop of Tetracaine 0.5%, tropicamide 1%, Cyclomidril, Besivance 0.6% and Acular 0.45%. The patient was then taken to the operating room in a supine position in a standard eye bed. Intravenous sedation was administered and she was prepped and draped in the standard fashion. A timeout was performed to confirm the surgical site. Attention was directed to the left eye where a paracentesis was created at the 5:30 position at the corneal limbus with a 15 degree blade. The anterior chamber was filled with 0.3 mL of 1% methylparaben free lidocaine and after 30 seconds the anterior chamber was filled with viscoelastic material. A 3 plane corneal incision was then made at the 3 o'clock position at the cornea limbus with a keratome. A continuous curvilinear capsulorrhexis was then made in the anterior capsule of the lens with a cystotome. The lens was hydrodissected using balanced saline solution. The lens nucleus was then removed by phacoemulsification using the stop and chop technique. CDE [12.48 ]. The remaining cortical material was then removed from the posterior capsular bag using irrigation and aspiration. The posterior capsule bag was filled with viscoelastic material and a lens implant was inserted into the posterior capsule bag. I have chosen for this case is a one piece acrylic lens from [employer] model [[id number]], serial number [[id number]], lens power [16.0]. The lens was removed from its package, inspected and found to be free of defects it was loaded into a [place] D high lift mule operator. The high lift mule operator was passed through the temporal wound and the lens was advanced into the posterior capsular bag. The lens implant was centered in the posterior capsular bag with the [place] spatula the viscoelastic material was removed from the eye using irrigation and aspiration. The wounds were closed by stromal hydration and they were tested with the Weck-Alicia sponges and found to have no leaks. Intraocular pressure was assessed by manual palpitation found to be with in the physiologic range. The drape and speculum were removed. Drops of Durezol, Combigan and gatifloxacin were instilled in the left eye. The patient was then taken to the recovery room in good condition. The patient tolerated the procedure very well. The patient was given a prescription for gatifloxacin, Durezol and Ilervo to use every 2 hours while awake today. She will return my clinic tomorrow for follow-up evaluation.
== END 2019-11-21 14:00 | disposition home or self-care (01) ==
LOC: SC 09:25
PROVIDERS: ATTEND Ophthalmology
DX: H25.812 Combined forms of age-related cataract, left eye (principal); Z98.41 Cataract extraction status, right eye; M19.90 Unspecified osteoarthritis, unspecified site; I10 Essential (primary) hypertension; E78.00 Pure hypercholesterolemia, unspecified; Z79.899 Other long term (current) drug therapy; F17.210 Nicotine dependence, cigarettes, uncomplicated
CPT/HCPCS: 00142; 66984; V2632; J2250; J3490 ×3; A9270; J0171; J3010; J2405; 142

== ENCOUNTER 2019-12-30 10:41 | Emergency (ER) | payer MEDICARE, OTHER ==
--- NOTE | 2019-12-30 11:15 | ER Document Report ---
ED Medical Screen (RME) - General Chief Complaint: Passed Out Prior to Arrival Stated Complaint: SYNCOPAL EPISODE Time Seen by Provider: 12/30/19 11:06 Primary Care Provider: RODRIGUE LANGE PA [Primary Care Provider] - Follow up as needed Mode of Arrival: Wheelchair Information source: Patient Notes: 74-year-old male presented to ED for syncopal episode last night. He states last night he got up felt like he was very nauseated felt like he was very sweaty and clammy. He walked downstairs and got very nauseated again. He states he thinks he turned around to go back upstairs and the next thing he knows his found him on the floor. She states she heard a big thump and she found him on the floor. She states at the time his blood pressure was 111/63 he does have high blood pressure and is on high blood pressure medicine. He also has a history of COPD and a surgery for cataracts. He is alert oriented respirations regular nonlabored speaking in full sentences. Went to his primary care and they told him to come to the emergency room so he is now in the emergency room. His did drive him. I have greeted and performed a rapid initial assessment of this patient. A comprehensive ED assessment and evaluation of the patient, analysis of test results and completion of medical decision making process will be conducted by an additional ED providers. TRAVEL OUTSIDE OF THE [place] IN LAST 30 DAYS: No - Related Data Allergies/Adverse Reactions: No Known Allergies Allergy (Verified 10/20/19 11:08) Past Medical History - Past Medical History Cardiac Medical History: Reports: Hx Hypercholesterolemia, Hx Hypertension Denies: Hx Congestive Heart Failure, Hx Coronary Artery Disease, Hx Heart Attack Pulmonary Medical History: Reports: Hx COPD Denies: Hx Asthma Neurological Medical History: Denies: Hx Cerebrovascular Accident, Hx Seizures Renal/ Medical History: Denies: Hx Peritoneal Dialysis GI Medical History: Denies: Hx Hepatitis, Hx Hiatal Hernia, Hx Ulcer Musculoskeltal Medical History: Reports Hx Arthritis Psychiatric Medical History: Denies: Hx Depression Infectious Medical History: Denies: Hx Hepatitis Past Surgical History: Reports: Hx Appendectomy, Hx Tonsillectomy. Denies: Hx Open Heart Surgery, Hx Pacemaker - Immunizations Hx Diphtheria, Pertussis, Tetanus Vaccination: Yes Physical Exam - Vital signs Vitals: Temp Pulse Resp BP Pulse Ox 97.5 F 101 H 18 146/69 H 99 12/30/19 10:48 12/30/19 10:48 12/30/19 10:48 12/30/19 10:48 12/30/19 10:48 Course - Vital Signs Vital signs: Temp Pulse Resp BP Pulse Ox 97.5 F 101 H 18 146/69 H 99 12/30/19 10:48 12/30/19 10:48 12/30/19 10:48 12/30/19 10:48 12/30/19 10:48 Doctor's Discharge - Discharge Referrals: RODRIGUE LANGE PA [Primary Care Provider] - Follow up as needed
--- NOTE | 2019-12-30 11:59 | RADIOLOGY REPORT (SQ) ---
EXAM DESCRIPTION: CHEST 2 VIEWS IMAGES COMPLETED DATE/TIME: 12/30/2019 11:43 am REASON FOR STUDY: syncope COMPARISON: Chest films 01/01/2019, 05/23/2019 EXAM PARAMETERS: NUMBER OF VIEWS: two views TECHNIQUE: Digital Frontal and Lateral radiographic views of the chest acquired. RADIATION DOSE: NA LIMITATIONS: none FINDINGS: LUNGS AND PLEURA: Chronic atelectasis or scarring at the left lung base. No acute infiltrates. No pleural effusion or pneumothorax. MEDIASTINUM AND HILAR STRUCTURES: No masses or contour abnormalities. HEART AND VASCULAR STRUCTURES: Heart normal size. No evidence for failure. BONES: No acute findings. HARDWARE: None in the chest. OTHER: No other significant finding. IMPRESSION: NO ACUTE RADIOGRAPHIC FINDING IN THE CHEST. TECHNICAL DOCUMENTATION: JOB ID: [id number] 2010 [employer]- All Rights Reserved Reading location - IP/workstation name: [email or web address]
[2019-12-30 12:01] LABS: ABSOLUTE EOSINOPHILS # (AUTO) 0.1 10^3/uL (0.0-0.6); ABSOLUTE LYMPHOCYTES (AUTO) 0.7 10^3/uL (0.5-4.7); ABSOLUTE MONOCYTES (AUTO) 0.5 10^3/uL (0.1-1.4); ABSOLUTE NEUT (AUTO) 3.8 10^3/uL (1.7-8.2); BASOPHILS % (AUTO) 0.2 % (0-2); EOSINOPHILS % (AUTO) 1.1 % (0-6); HEMATOCRIT 44.2 % (37.9-51.0); HEMOGLOBIN 15.4 g/dL (13.5-17.0); LYMPHOCYTES % (AUTO) 13.6 % (13-45); MEAN CORPUSCULAR HEMOGLOBIN 29.8 pg (27.0-33.4); MEAN CORPUSCULAR HGB CONC 34.9 g/dL (32.0-36.0); MEAN CORPUSCULAR VOLUME 86 fl (80-97); MONOCYTES % (AUTO) 10.5 % (3-13); PLATELET COUNT 202 10^3/uL (150-450); RED BLOOD COUNT 5.17 10^6/uL (4.35-5.55); RED CELL DISTRIBUTION WIDTH 14.1 % (11.5-14.0); SEGMENTED NEUTROPHILS % (AUTO) 74.6 % (42-78); TOTAL CELLS COUNTED % (AUTO) 100 %; WHITE BLOOD COUNT 5.1 10^3/uL (4.0-10.5)
[2019-12-30 12:19] LABS: ALBUMIN 4.2 g/dL (3.5-5.0); ALKALINE PHOSPHATASE 116 U/L (38-126); ANION GAP 10 (5-19); ASPARTATE AMINO TRANSFERASE 27 U/L (17-59); BILIRUBIN,DIRECT 0.2 mg/dL (0.0-0.4); BILIRUBIN,TOTAL 0.7 mg/dL (0.2-1.3); BLOOD UREA NITROGEN 17 mg/dL (7-20); CALCIUM 9.4 mg/dL (8.4-10.2); CARBON DIOXIDE 23 mmol/L (22-30); CHLORIDE 98 mmol/L (98-107); CREATINE KINASE 87 U/L (55-170); GLUCOSE 113 mg/dL (75-110); POTASSIUM 4.9 mmol/L (3.6-5.0); TOTAL PROTEIN 6.7 g/dL (6.3-8.2)
--- NOTE | 2019-12-30 12:19 | ER Document Report ---
ED Syncope and Near Syncope - General Chief Complaint: Syncope Stated Complaint: SYNCOPAL EPISODE Time Seen by Provider: 12/30/19 11:06 Primary Care Provider: RODRIGUE LANGE PA [Primary Care Provider] - Follow up as needed Mode of Arrival: Wheelchair Information source: Patient Notes: This 74-year-old man presents to the emergency department with a history of syncopal episode. States that he got up to use the bathroom this morning at approximately 5 AM. He went down to the bathroom and does not recall any symptoms when he came around his was standing over him and he was on the floor on his back. States that he felt nauseated, no vomiting, he denies chest pain or palpitations. Has a history of hypertension denies a prior history of syncopal episodes. Last night he had 3 beers, played darts and came home and went to bed. This morning he ate breakfast denies dizziness or lightheadedness, but given the episode last night which probably lasted about a minute according to the , he decided to come to the emergency department to be evaluated. TRAVEL OUTSIDE OF THE [place] IN LAST 30 DAYS: No - Related Data Allergies/Adverse Reactions: No Known Allergies Allergy (Verified 10/20/19 11:08) Past Medical History - General Information source: Patient - Social History Smoking Status: Never Smoker Chew tobacco use (# tins/day): No Frequency of alcohol use: None Drug Abuse: None Family History: COPD Patient has homicidal ideation: No - Past Medical History Cardiac Medical History: Reports: Hx Hypercholesterolemia, Hx Hypertension Denies: Hx Congestive Heart Failure, Hx Coronary Artery Disease, Hx Heart Att ack Pulmonary Medical History: Reports: Hx COPD Denies: Hx Asthma Neurological Medical History: Denies: Hx Cerebrovascular Accident, Hx Seizures Renal/ Medical History: Denies: Hx Peritoneal Dialysis GI Medical History: Denies: Hx Hepatitis, Hx Hiatal Hernia, Hx Ulcer Musculoskeletal Medical History: Reports Hx Arthritis Psychiatric Medical History: Denies: Hx Depression Infectious Medical History: Denies: Hx Hepatitis Past Surgical History: Reports: Hx Appendectomy, Hx Tonsillectomy. Denies: Hx Open Heart Surgery, Hx Pacemaker - Immunizations Hx Diphtheria, Pertussis, Tetanus Vaccination: Yes Review of Systems - Review of Systems Notes: Constitutional: Negative for fever. HENT: Negative for sore throat. Eyes: Negative for visual changes. Cardiovascular: Negative for chest pain. Respiratory: Negative for shortness of breath. Gastrointestinal: Negative for abdominal pain, vomiting or diarrhea. Genitourinary: Negative for dysuria. Musculoskeletal: Negative for back pain. Skin: Negative for rash. Neurological: Negative for headaches, weakness or numbness. 10 point ROS negative except as marked above and in HPI. Physical Exam - Vital signs Vitals: Temp Pulse Resp BP Pulse Ox 97.5 F 101 H 18 146/69 H 99 12/30/19 10:48 12/30/19 10:48 12/30/19 10:48 12/30/19 10:48 12/30/19 10:48 - Notes Notes: PHYSICAL EXAMINATION: Physical Exam: General: Well-nourished well-developed 74-year-old man in no acute distress HEENT: NC/AT, pupils equal round and reactive to light, MM moist,nares clear, oropharynx clear, airway patent Neck: supple, no adenopathy, no masses. Good range of motion Lungs: clear, no wheezing, no rales no rhonchi CVS: Regular rate and rhythm no murmur gallop or rub Abdomen: Soft, active, nontender, no masses, no hepatosplenomegaly Ext: No edema, clubbing or cyanosis. Neuro: Alert and responsive, moving all 4 extremities on command, cranial nerves intact, no focal findings Skin: Intact no open lesions, no rash PSYCH: Normal mood, normal affect. Course - Re-evaluation Re-evalutation: 12/30/19 15:12 Patient seen with a brief episode of syncope. He was nauseated at the time. Likely a vagal reaction. Labs, EKG, CT of the head are all negative. The patient has been stable here in the emergency department and I have discussed with the family the need to continue to monitor his symptoms closely and to follow-up as needed. The patient and are comfortable going home. - Vital Signs Vital signs: Temp Pulse Resp BP Pulse Ox 97.5 F 83 14 131/78 H 99 12/30/19 10:48 12/30/19 12:21 12/30/19 13:01 12/30/19 13:01 12/30/19 13:01 - Laboratory Result Diagrams: 12/30/19 11:38 12/30/19 11:38 Laboratory results interpreted by me: 12/30/19 12/30/19 11:38 11:38 RDW 14.1 H Sodium 130.6 L Glucose 113 H 12/30/19 15:13 I have reviewed laboratory data and used this information for the treatment decisions regarding the patient. - Diagnostic Test Radiology reviewed: Image reviewed, Reports reviewed Radiology results interpreted by me: 12/30/19 15:13 CT head noncontrast: No acute intracranial findings. 12/30/19 15:14 Chest x-ray: No acute cardiopulmonary findings. - EKG Interpretation by Me Rate: Normal - EKG interpreted by Dr. Pizano: Normal sinus rhythm, rate 96, KS interval 140 ms, QT interval 380 ms, normal axis deviation, LBBB, no acute ST or T wave abnormalities, no ischemic findings, compared to prior EKG dated 05/23/2019 there are no acute interval changes. Discharge - Discharge Clinical Impression: Vasovagal episode Syncope Qualifiers: Syncope type: vasovagal syncope Qualified Code(s): R55 - Syncope and collapse Condition: Good Disposition: HOME, SELF-CARE Instructions: Syncopal Episode ([facility]), Vasovagal Symptoms ([facility]) Additional Instructions: You were seen in the emergency department with an episode of passing out. It is likely that this was a vasovagal episode. Please continue to monitor your symptoms closely, if you have a repeat episode or other concerns you may return to the emergency department for further evaluation and treatment. Please follow-up with your primary care doctor regarding any questions regarding the blood pressure medications. HOME CARE INSTRUCTIONS & INFORMATION: Thank you for choosing us for your medical needs. We hope you're satisfied with the care you received. After you leave, you must properly care for your problem and, at the same time, observe its progress. Any condition can change. Some illnesses can change rapidly over hours or days. If your condition worsens, return to the Emergency Department or see your physician promptly. ABOUT YOUR X-RAYS AND EKG'S: If you had an EKG or X-rays taken, they have been read by the Emergency Physician. The X-rays and EKG's will also be read by a Radiologist or Creche Attendant within 24 hours. If discrepancies are noted, you will be notified by telephone. Please be certain the ED has a correct telephone number & address where you can be reached. Also, realize that some fractures or abnormalities do not show up on initial X-rays. If your symptoms continue, see your physician. ABOUT YOUR LABORATORY TEST: If you had laboratory tests, the results have been reviewed by the Emergency Physician. Some test results (for example cultures) may not be available for several days. You will be contacted if any test result shows you need additional treatment. Please be certain the ED has a correct telephone number and address where you can be reached. ABOUT YOUR MEDICATIONS: You will receive instructions on how to take your medicine on the prescription label you receive. Additional information may be provided by the Pharmacy. If you have questions afterwards, call the ED for clarification or further instructions. Some prescribed medications may cause drowsiness. Do not perform tasks such as driving a car or operating machinery without consulting your Pharmacist. If you feel you need a refill of pain medication, your condition will need re-evaluation. Please do not call for a refill of any medication. ABOUT YOUR SIGNATURE: Signature of this document acknowledges to followin. Understanding that you received emergency treatment and that you may be released before al medical problems are known or treated. Please be certain the ED has a correct phone number & address where you can be reached. 2. Acknowledgement that you will arrange for follow-up care as recommended. 3. Authorization for the Emergency Physician to provide information to your follow-up Physician in order to maximize your care. AT ANY TIME, IF YOUR SYMPTOMS CHANGE SIGNIFICANTLY OR WORSEN OR YOU DEVELOP NEW SYMPTOMS, RETURN TO THE EMERGENCY DEPARTMENT IMMEDIATELY FOR RE-EVALUATION. OUR GOAL IS TO PROVIDE EXCELLENT MEDICAL CARE! WE HOPE THAT WE HAVE MET YOUR EXPECTATIONS DURING YOUR EMERGENCY DEPARTMENT V ISIT AND THAT YOU FEEL YOU HAVE RECEIVED EXCELLENT CARE! Referrals: RODRIGUE LANGE PA [Primary Care Provider] - Follow up as needed
[2019-12-30 12:32] LABS: CREATINE KINASE MB 1.99 ng/mL (<4.55)
[2019-12-30 12:34] LABS: TROPONIN I < 0.012 ng/mL
[2019-12-30] MEDS ORDERED: NORMAL SALINE 1000 ML 1,000 ML IV PRN (12:51)
--- NOTE | 2019-12-30 12:57 | RADIOLOGY REPORT (SQ) ---
EXAM DESCRIPTION: CT HEAD WITHOUT IMAGES COMPLETED DATE/TIME: 12/30/2019 12:12 pm REASON FOR STUDY: syncope COMPARISON: None. TECHNIQUE: Axial images acquired through the brain without intravenous contrast. Images reviewed wi th bone, brain and subdural windows. Additional sagittal and coronal reconstructions were generated. Images stored on PACS. All CT scanners at this facility use dose modulation, iterative reconstruction, and/or weight based d osing when appropriate to reduce radiation dose to as low as reasonably achievable (ALARA). [facility]: Dose Right [facility]: CareDose [facility]: Dose Right [facility]: Teradose 4D [facility]: Symwave RADIATION DOSE: CT Rad equipment meets quality standard of care and radiation dose reduction techniq ues were employed. CTDIvol: 53.2 mGy. DLP: 991 mGy-cm. mGy. LIMITATIONS: None. FINDINGS: VENTRICLES: Normal size and contour. CEREBRUM: No masses. No hemorrhage. No midline shift. No evidence for acute infarction. Few scatte red areas of low density in the white matter most likely chronic small vessel ischemic changes. CEREBELLUM: No masses. No hemorrhage. No alteration of density. No evidence for acute infarction. EXTRAAXIAL SPACES: No fluid collections. No masses. ORBITS AND GLOBE: No intra- or extraconal masses. Normal contour of globe without masses. CALVARIUM: No fracture. PARANASAL SINUSES: Mucous membrane thickening bilateral ethmoid air cells. SOFT TISSUES: No mass or hematoma. OTHER: No other significant finding. IMPRESSION: No acute findings EVIDENCE OF ACUTE STROKE: NO. COMMENT: Quality ID # [id number]: Final reports with documentation of one or more dose reduction techniques (e.g., Automated exposure control, adjustment of the mA and/or kV according to patient size, use of iterative reconstruction technique) TECHNICAL DOCUMENTATION: JOB ID: [id number] 2010 [employer]- All Rights Reserved Reading location - IP/workstation name: [id number]
[2019-12-30 13:37] LABS: APPEARANCE,URINE CLEAR; BILIRUBIN,URINE NEGATIVE (NEGATIVE); COLOR,URINE YELLOW; GLUCOSE, URINE NEGATIVE (NEGATIVE); KETONES,URINE NEGATIVE (NEGATIVE); LEUKOCYTE ESTERASE,URINE NEGATIVE (NEGATIVE); NITRITE,URINE NEGATIVE (NEGATIVE); PROTEIN,URINE NEGATIVE (NEGATIVE); URINE SPECIFIC GRAVITY 1.012; UROBILINOGEN,URINE NEGATIVE mg/dL (<2.0)
[2019-12-30 15:48] VITALS: BP 147/86
--- NOTE | 2019-12-31 16:30 | EKG REPORT ---
SEVERITY:- ABNORMAL ECG - SINUS RHYTHM LEFT BUNDLE BRANCH BLOCK : Confirmed by: Anshul Drake 31-Dec-2019 16:29:37
== END 2019-12-30 15:48 | disposition home or self-care (01) ==
LOC: ER 10:41
DX: R55 Syncope and collapse (principal); R11.0 Nausea; E78.00 Pure hypercholesterolemia, unspecified; I10 Essential (primary) hypertension
CPT/HCPCS: 93005; 99285; 96360; 36415; 82553; 82550; 83690; 85025; 80053; 81001; 84484; 71046; 70450; 93010; J7030

== ENCOUNTER 2020-01-05 13:55 | Emergency (ER) | payer MEDICARE, OTHER ==
--- NOTE | 2020-01-05 14:40 | ER Document Report ---
ED Medical Screen (RME) - General Chief Complaint: Headache Stated Complaint: HEADACHE Time Seen by Provider: 01/05/20 14:37 Primary Care Provider: RODRIGUE LANGE PA [Primary Care Provider] - Follow up as needed Mode of Arrival: Wheelchair Information source: Patient Notes: HPI; 74-year-old male presents to the emergency room complaining of hypotension, diarrhea times a week with abdominal pain and cramping. Low-grade fevers, cough with yellow sputum states has been using his inhaler nebulizer without relief. States his is home under quarantine waiting for her COVID-19 testing that she had done earlier this week. No other known COVID-19 exposure. No previous COVID-19 testing. PE: Alert and oriented x3. Lungs: Diminished in the bases. Heart: Regular rate rhythm without murmurs, rubs, gallops. Patient was evaluated during the global COVID-19 pandemic and that diagnosis was suspected/considered upon their initial presentation. Their evaluation, treatment and testing was consistent with current guidelines for patients who presents with complaints or systems that may be related to COVID-19. I have greeted and performed a rapid initial assessment of this patient. A comprehensive ED assessment and evaluation of the patient, analysis of test results and completion of the medical decision making process will be conducted by additional ED providers. I have specifically instructed the patient or family members with the patient to immediately return to any nursing staff should anything change in the patient's condition or with their chief complaint. TRAVEL OUTSIDE OF THE [place] IN LAST 30 DAYS: No - Related Data Allergies/Adverse Reactions: No Known Allergies Allergy (Verified 10/20/19 11:08) Past Medical History - Past Medical History Cardiac Medical History: Reports: Hx Hypercholesterolemia, Hx Hypertension Denies: Hx Congestive Heart Failure, Hx Coronary Artery Disease, Hx Heart Attack Pulmonary Medical History: Reports: Hx COPD Denies: Hx Asthma Neurological Medical History: Denies: Hx Cerebrovascular Accident, Hx Seizures Renal/ Medical History: Denies: Hx Peritoneal Dialysis GI Medical History: Denies: Hx Hepatitis, Hx Hiatal Hernia, Hx Ulcer Musculoskeltal Medical History: Reports Hx Arthritis Psychiatric Medical History: Denies: Hx Depression Infectious Medical History: Denies: Hx Hepatitis Past Surgical History: Reports: Hx Appendectomy, Hx Tonsillectomy. Denies: Hx Open Heart Surgery, Hx Pacemaker - Immunizations Hx Diphtheria, Pertussis, Tetanus Vaccination: Yes Physical Exam - Vital signs Vitals: Temp Pulse Resp BP Pulse Ox 98.3 F 88 18 139/62 H 96 01/05/20 14:01 01/05/20 14:01 01/05/20 14:01 01/05/20 14:01 01/05/20 14:01 Course - Vital Signs Vital signs: Temp Pulse Resp BP Pulse Ox 98.3 F 88 18 139/62 H 96 01/05/20 14:01 01/05/20 14:01 01/05/20 14:01 01/05/20 14:01 01/05/20 14:01 Doctor's Discharge - Discharge Referrals: RODRIGUE LANGE PA [Primary Care Provider] - Follow up as needed
--- NOTE | 2020-01-05 15:38 | RADIOLOGY REPORT (SQ) ---
EXAM DESCRIPTION: CHEST SINGLE VIEW IMAGES COMPLETED DATE/TIME: 01/05/2020 3:30 pm REASON FOR STUDY: cough COMPARISON: 12/30/2019 EXAM PARAMETERS: NUMBER OF VIEWS: One view. TECHNIQUE: Single frontal radiographic view of the chest acquired. RADIATION DOSE: NA LIMITATIONS: None. FINDINGS: LUNGS AND PLEURA: New ill-defined patchy airspace disease in the periphery of the left low er lobe. Mild persistent hyperexpansion. No pneumothorax or effusion. Mild elevation of left hemid iaphragm. MEDIASTINUM AND HILAR STRUCTURES: No masses. Contour normal. HEART AND VASCULAR STRUCTURES: Heart normal in size. Normal vasculature. BONES: No acute findings. HARDWARE: None in the chest. OTHER: No other significant finding. IMPRESSION: Focal peripheral airspace disease in the left base. Findings are suspicious for develop ing pneumonia. Possibly viral pneumonia. TECHNICAL DOCUMENTATION: JOB ID: [id number] 2010 [employer]- All Rights Reserved Reading location - IP/workstation name: [email or web address]
--- NOTE | 2020-01-05 16:06 | EKG REPORT ---
SEVERITY:- ABNORMAL ECG - SINUS RHYTHM LEFT BUNDLE BRANCH BLOCK : Confirmed by: Jonathan Quintanilla MD 05-Jan-2020 16:05:48
[2020-01-05 16:19] LABS: ABSOLUTE LYMPHOCYTES (AUTO) 0.7 10^3/uL (0.5-4.7); ABSOLUTE MONOCYTES (AUTO) 0.7 10^3/uL (0.1-1.4); ABSOLUTE NEUT (AUTO) 3.5 10^3/uL (1.7-8.2); BASOPHILS % (AUTO) 0.3 % (0-2); EOSINOPHILS % (AUTO) 0.8 % (0-6); HEMOGLOBIN 13.6 g/dL (13.5-17.0); LYMPHOCYTES % (AUTO) 13.9 % (13-45); MEAN CORPUSCULAR HEMOGLOBIN 29.5 pg (27.0-33.4); MEAN CORPUSCULAR HGB CONC 34.8 g/dL (32.0-36.0); MEAN CORPUSCULAR VOLUME 85 fl (80-97); MONOCYTES % (AUTO) 13.7 % (3-13); PLATELET COUNT 203 10^3/uL (150-450); RED BLOOD COUNT 4.61 10^6/uL (4.35-5.55); RED CELL DISTRIBUTION WIDTH 13.9 % (11.5-14.0); SEGMENTED NEUTROPHILS % (AUTO) 71.3 % (42-78); TOTAL CELLS COUNTED % (AUTO) 100 %
[2020-01-05] MEDS ORDERED: NORMAL SALINE 1000 ML 1,000 ML IV ONE (16:23)
[2020-01-05] MEDS ORDERED: NORMAL SALINE 500 ML IV ONE (16:23)
[2020-01-05 16:45] LABS: ALBUMIN 3.4 g/dL (3.5-5.0); ALKALINE PHOSPHATASE 95 U/L (38-126); ANION GAP 9 (5-19); ASPARTATE AMINO TRANSFERASE 33 U/L (17-59); BILIRUBIN,DIRECT 0.3 mg/dL (0.0-0.4); BLOOD UREA NITROGEN 18 mg/dL (7-20); CALCIUM 8.9 mg/dL (8.4-10.2); CARBON DIOXIDE 24 mmol/L (22-30); CHLORIDE 95 mmol/L (98-107); GLUCOSE 91 mg/dL (75-110); POTASSIUM 4.8 mmol/L (3.6-5.0); TOTAL PROTEIN 5.9 g/dL (6.3-8.2)
[2020-01-05 16:56] LABS: NT PRO BNP 376 pg/mL (<125)
[2020-01-05 17:01] LABS: TROPONIN I < 0.012 ng/mL
[2020-01-05] MEDS ORDERED: CEFTRIAXONE 1 GM/D5W RTU 1 GM/50 ML RTUPB IV ONE (17:03)
--- NOTE | 2020-01-05 17:51 | ER Document Report ---
Entered by IWONA ELLSWORTH SCRIBE 01/05/20 1716 Acting as scribe for:CATERINA ALVES DO ED General - General Chief Complaint: Headache Stated Complaint: HEADACHE Time Seen by Provider: 01/05/20 14:37 Primary Care Provider: RODRIGUE LANGE PA [Primary Care Provider] - Follow up as needed Mode of Arrival: Wheelchair Information source: Patient Notes: This 74 year old male patient with history of HTN, HLD, COPD, and pneumonia, presents to the emergency department today with complaints of a productive cough with yellow sputum and states he has felt sick the past x4 days. Patient reports epigastric pain when coughing, general weakness, poor appetite, loose stool, and nausea. Denies vomiting. Patient states his has some respiratory illness for the past x1 week, was tested for covid, and has not received results yet. TRAVEL OUTSIDE OF THE [place] IN LAST 30 DAYS: No - Related Data Allergies/Adverse Reactions: No Known Allergies Allergy (Verified 10/20/19 11:08) Past Medical History - General Information source: Patient - Social History Smoking Status: Former Smoker Cigarette use (# per day): No Lives with: Family Family History: COPD - Past Medical History Cardiac Medical History: Reports: Hx Hypercholesterolemia, Hx Hypertension Pulmonary Medical History: Reports: Hx COPD, Hx Pneumonia Musculoskeletal Medical History: Reports Hx Arthritis Past Surgical History: Reports: Hx Appendectomy, Hx Tonsillectomy - Immunizations Hx Diphtheria, Pertussis, Tetanus Vaccination: Yes Review of Systems - Review of Systems Constitutional: See HPI, Weakness EENT: No symptoms reported Cardiovascular: No symptoms reported Respiratory: See HPI, Cough, Sputum - yellow Gastrointestinal: See HPI, Abdominal pain - epigastric pain with cough, Nausea, Poor appetite, Other - loose stool. denies: Vomiting Genitourinary: No symptoms reported Male Genitourinary: No symptoms reported Musculoskeletal: No symptoms reported Skin: No symptoms reported Hematologic/Lymphatic: No symptoms reported Neurological/Psychological: See HPI -: Yes All other systems reviewed and negative Physical Exam - Vital signs Vitals: Temp Pulse Resp BP Pulse Ox 98.3 F 88 18 139/62 H 96 01/05/20 14:01 01/05/20 14:01 01/05/20 14:01 01/05/20 14:01 01/05/20 14:01 - General General appearance: Alert Notes: Appears frail and chronically ill. - HEENT Head: Normocephalic, Atraumatic Eyes: Normal Pupils: PERRL Mucous membranes: Dry - Respiratory Respiratory status: No respiratory distress Chest status: Nontender Chest palpation: Normal Notes: Diminished breath sounds bilaterally. Faint expiratory wheeze. - Cardiovascular Rhythm: Regular Heart sounds: Normal auscultation Murmur: No - Abdominal Inspection: Normal Distension: No distension Bowel sounds: Normal Notes: Mild tenderness with palpation to the epigastric region. - Extremities General upper extremity: Normal inspection. No: Edema General lower extremity: Normal inspection. No: Edema - Neurological Neuro grossly intact: Yes Cognition: Normal Angeli Coma Scale Eye Opening: Spontaneous Alvin Coma Scale Verbal: Oriented Alvin Coma Scale Motor: Obeys Commands Angeli Coma Scale Total: 15 Speech: Normal Sensory: Normal - Psychological Associated symptoms: Normal affect, Normal mood - Skin Skin Temperature: Warm Skin Moisture: Dry Skin Color: Normal Course - Re-evaluation Re-evalutation: 01/05/20 19:49 MDM 74 year old male with left base airspace disease on cxr and known copd has been sick for about 5 days. He is improved after IVF here. at home is sick with similar and is a PUI for covid as he is now too. He admits he feels better after IVF and we have administered parenterally the first dose of IV antibiotics here. We discussed return precautions and he expressed understanding. - Vital Signs Vital signs: Temp Pulse Resp BP Pulse Ox 97.6 F 82 18 155/74 H 100 01/05/20 19:07 01/05/20 19:07 01/05/20 19:07 01/05/20 19:07 01/05/20 19:07 - Laboratory Result Diagrams: 01/05/20 16:00 01/05/20 16:00 Laboratory results interpreted by me: 01/05/20 01/05/20 01/05/20 16:00 16:00 16:00 [place] % (Auto) 13.7 H Sodium 128.2 L Chloride 95 L NT-Pro-B Natriuret Pep 376 H Total Protein 5.9 L Albumin 3.4 L - Diagnostic Test Radiology reviewed: Image reviewed, Reports reviewed - EKG Interpretation by Me EKG shows normal: Sinus rhythm Rate: Normal Rhythm: NSR - NSR NL [place] LBBB 80 BPM Repol Ab without st elevation or depression my intepretation. Discharge - Discharge Clinical Impression: Pneumonia Qualifiers: Pneumonia type: due to unspecified organism Laterality: left Lung location: upper lobe of lung Qualified Code(s): J18.9 - Pneumonia, unspecified organism Condition: Stable Disposition: HOME, SELF-CARE Instructions: COVID-19 Guidance for Persons Under Investigation, Pneumonia ([facility]), Viral Pneumonia ([facility]) Additional Instructions: Rest and drink plenty of fluids. Take your medicine as directed. Please return here for any problems or concerns including but not limited to chest pain or shortness of breath. Tylenol for fever or achiness. You are under investigation for covid 19. Self isolate until those results are back. Follow up with your doctor 01/07. Referrals: RODRIGUE LANGE PA [Primary Care Provider] - 01/08/20 I personally performed the services described in the documentation, reviewed and edited the documentation which was dictated to the scribe in my presence, and it accurately records my words and actions.
[2020-01-05 19:08] VITALS: BP 155/74
== END 2020-01-05 20:38 | disposition home or self-care (01) ==
LOC: ER 13:55
DX: U07.1 COVID-19 (principal); J12.89 Other viral pneumonia; R51.9 Headache, unspecified; R05 Cough; R10.13 Epigastric pain; R53.1 Weakness; R63.0 Anorexia; R19.7 Diarrhea, unspecified; R11.0 Nausea; Z87.891 Personal history of nicotine dependence; I10 Essential (primary) hypertension; E78.5 Hyperlipidemia, unspecified; J44.9 Chronic obstructive pulmonary disease, unspecified
CPT/HCPCS: 93005; 99285; 96361; 96365; 36415; 83605; 83735; 85025; 80053; 84484; 83880; 71045; 93010; U0003; J7030; J7040; J0696; C9803; 87635

== ENCOUNTER 2020-02-12 14:30 | Emergency (ER) | payer MEDICARE, OTHER ==
--- NOTE | 2020-02-12 14:41 | ER Document Report ---
ED Medical Screen (RME) - General Chief Complaint: High Blood Pressure Stated Complaint: HIGH BLOOD PRESSURE Time Seen by Provider: 02/12/20 14:34 Primary Care Provider: RODRIGUE LANGE PA [Primary Care Provider] - Follow up as needed Mode of Arrival: Ambulatory Information source: Patient Notes: 75-year-old male presented to ED for complaint of elevated blood pressure. Patient went to his primary doctor's office and they looked at his blood pressures and told him to come to the emergency room. I have explained to the patient that normally the primary doctor adjusted his blood pressure medicines but we can get some blood in urine and chest x-ray and EKG and that he will need to follow-up with his primary doctor to get an adjustment to his blood pressure medicines. Patient verbalized understanding and agreement with this. He will be seen by another provider. He states the primary doctor's office told him to come back after his visit to the ED to schedule appointment with his primary doctor. I have greeted and performed a rapid initial assessment of this patient. A comprehensive ED assessment and evaluation of the patient, analysis of test results and completion of medical decision making process will be conducted by an additional ED providers. TRAVEL OUTSIDE OF THE [place] IN LAST 30 DAYS: No - Related Data Allergies/Adverse Reactions: No Known Allergies Allergy (Verified 02/12/20 14:41) Past Medical History - General Information source: Patient - Social History Cigarette use (# per day): No - 4-month Frequency of alcohol use: Heavy - 1-2 beers a day Drug Abuse: None Lives with: Family Family history: Reviewed & Not Pertinent - Past Medical History Cardiac Medical History: Reports: Hx Hypercholesterolemia, Hx Hypertension Pulmonary Medical History: Reports: Hx COPD, Hx Pneumonia EENT Medical History: Reports: None Endocrine Medical History: Reports: None Renal/ Medical History: Reports: None Malignancy Medical History: Reports None GI Medical History: Reports: Hx Colonoscopy Musculoskeltal Medical History: Reports Hx Arthritis Skin Medical History: Reports None Psychiatric Medical History: Reports: None Traumatic Medical History: Reports: None Infectious Medical History: Reports: None Past Surgical History: Reports: Hx Adenoidectomy, Hx Appendectomy, Hx Tonsillectomy - Immunizations Hx Diphtheria, Pertussis, Tetanus Vaccination: Yes History of Pneumococcal Vaccine: Yes History of Influenza Vaccine for 12/2018 - 05/2019 Season: Yes Physical Exam - Vital signs Vitals: Temp Pulse Resp BP Pulse Ox 98.8 F 89 16 155/62 H 98 02/12/20 14:35 02/12/20 14:35 02/12/20 14:35 02/12/20 14:35 02/12/20 14:35 Course - Vital Signs Vital signs: Temp Pulse Resp BP Pulse Ox 98.8 F 89 20 177/89 H 97 02/12/20 14:35 02/12/20 14:35 02/12/20 18:01 02/12/20 18:00 02/12/20 18:01 - Laboratory Result Diagrams: 02/12/20 15:00 02/12/20 15:00 Laboratory results interpreted by me: 02/12/20 02/12/20 15:00 15:00 RDW 15.5 H Sodium 136.2 L Creatinine 1.37 H Est GFR (MDRD) Non-Af 51 L Doctor's Discharge - Discharge Clinical Impression: Hyperlipidemia, Hypertension Disposition: HOME, SELF-CARE Instructions: Beta Blockers ([facility]), High Blood Pressure ([facility]), High Blood Pressure, Requiring Treatment ([facility]), Hydrochlorothiazide ([facility]) Additional Instructions: Your blood pressure was elevated here. See your doctor in follow up. Take your medicine as directed. Please return here for chest pain, shortness of breath or other problems or concerns. Be careful of your salt intake. Keep it low. Increase the metoprolol (25 mg) to twice a day from once a day. Prescriptions: Metoprolol Tartrate [Lopressor 25 mg Tablet] 25 mg PO BID #60 tab Referrals: RODRIGUE LANGE PA [Primary Care Provider] - Follow up as needed
[2020-02-12 15:30] LABS: ABSOLUTE BASOPHILS # (AUTO) 0.1 10^3/uL (0.0-0.2); ABSOLUTE EOSINOPHILS # (AUTO) 0.2 10^3/uL (0.0-0.6); ABSOLUTE LYMPHOCYTES (AUTO) 1.2 10^3/uL (0.5-4.7); ABSOLUTE MONOCYTES (AUTO) 0.6 10^3/uL (0.1-1.4); ABSOLUTE NEUT (AUTO) 5.2 10^3/uL (1.7-8.2); BASOPHILS % (AUTO) 0.8 % (0-2); EOSINOPHILS % (AUTO) 2.6 % (0-6); HEMATOCRIT 40.1 % (37.9-51.0); HEMOGLOBIN 13.5 g/dL (13.5-17.0); LYMPHOCYTES % (AUTO) 16.5 % (13-45); MEAN CORPUSCULAR HEMOGLOBIN 29.8 pg (27.0-33.4); MEAN CORPUSCULAR HGB CONC 33.8 g/dL (32.0-36.0); MEAN CORPUSCULAR VOLUME 88 fl (80-97); MONOCYTES % (AUTO) 7.9 % (3-13); PLATELET COUNT 231 10^3/uL (150-450); RED BLOOD COUNT 4.55 10^6/uL (4.35-5.55); RED CELL DISTRIBUTION WIDTH 15.5 % (11.5-14.0); SEGMENTED NEUTROPHILS % (AUTO) 72.2 % (42-78); TOTAL CELLS COUNTED % (AUTO) 100 %; WHITE BLOOD COUNT 7.1 10^3/uL (4.0-10.5)
[2020-02-12 15:31] LABS: APPEARANCE,URINE CLEAR; BILIRUBIN,URINE NEGATIVE (NEGATIVE); COLOR,URINE YELLOW; GLUCOSE, URINE NEGATIVE (NEGATIVE); KETONES,URINE NEGATIVE (NEGATIVE); LEUKOCYTE ESTERASE,URINE NEGATIVE (NEGATIVE); NITRITE,URINE NEGATIVE (NEGATIVE); PROTEIN,URINE NEGATIVE (NEGATIVE); UROBILINOGEN,URINE NEGATIVE mg/dL (<2.0)
--- NOTE | 2020-02-12 15:50 | RADIOLOGY REPORT (SQ) ---
EXAM DESCRIPTION: CHEST 2 VIEWS IMAGES COMPLETED DATE/TIME: 02/12/2020 3:19 pm REASON FOR STUDY: Hypertension COMPARISON: 12/30/2019, 01/05/2020 EXAM PARAMETERS: NUMBER OF VIEWS: two views TECHNIQUE: Digital Frontal and Lateral radiographic views of the chest acquired. RADIATION DOSE: NA LIMITATIONS: none FINDINGS: LUNGS AND PLEURA: No effusions or consolidation. Minimal asymmetric airspace disease in t he left base is unchanged and may represent scar or atelectasis. No pneumothorax. MEDIASTINUM AND HILAR STRUCTURES: No masses or contour abnormalities. HEART AND VASCULAR STRUCTURES: Heart normal size. No evidence for failure. BONES: No acute findings. HARDWARE: None in the chest. OTHER: No other significant finding. IMPRESSION: No significant findings in the chest. TECHNICAL DOCUMENTATION: JOB ID: [id number] 2010 [employer]- All Rights Reserved Reading location - IP/workstation name: [email or web address]
[2020-02-12 15:53] LABS: ALBUMIN 3.8 g/dL (3.5-5.0); ALKALINE PHOSPHATASE 95 U/L (38-126); ANION GAP 7 (5-19); ASPARTATE AMINO TRANSFERASE 20 U/L (17-59); BILIRUBIN,TOTAL 0.8 mg/dL (0.2-1.3); BLOOD UREA NITROGEN 16 mg/dL (7-20); CALCIUM 9.4 mg/dL (8.4-10.2); CARBON DIOXIDE 25 mmol/L (22-30); CHLORIDE 104 mmol/L (98-107); GLUCOSE 91 mg/dL (75-110); POTASSIUM 4.5 mmol/L (3.6-5.0); TOTAL PROTEIN 6.5 g/dL (6.3-8.2)
[2020-02-12] MEDS ORDERED: METOPROLOL TARTRATE 25 MG TABLET PO ONE (18:02)
--- NOTE | 2020-02-12 18:03 | ER Document Report ---
Entered by IWONA ELLSWORTH SCRIBE 02/12/20 1748 Acting as scribe for:CATERINA ALVES DO ED General - General Chief Complaint: High Blood Pressure Stated Complaint: HIGH BLOOD PRESSURE Time Seen by Provider: 02/12/20 14:34 Primary Care Provider: RODRIGUE LANGE PA [Primary Care Provider] - Follow up as needed Mode of Arrival: Ambulatory Information source: Patient Notes: This 75 year old male patient presents to the emergency department today with complaints of elevated blood pressure. Patient states he was told to come to the ED by his PCP after trying to go to Urgent Care earlier today. Patient states he is compliant with his medication for his HTN and checks his blood pressure regularly at home. Patient reports random episodes of chest pain without exertion that last around a minute and states this has been happening for a while. Patient reports pneumonia x1 month ago to his left lung and states his recent x-ray was clear. TRAVEL OUTSIDE OF THE [place] IN LAST 30 DAYS: No - Related Data Allergies/Adverse Reactions: No Known Allergies Allergy (Verified 02/12/20 14:41) Past Medical History - General Information source: Patient - Social History Smoking Status: Former Smoker Cigarette use (# per day): No - 4-month Chew tobacco use (# tins/day): No Frequency of alcohol use: Heavy - 1-2 beers a day Drug Abuse: None Lives with: Family Family History: COPD Patient has homicidal ideation: No - Past Medical History Cardiac Medical History: Reports: Hx Hypercholesterolemia, Hx Hypertension Pulmonary Medical History: Reports: Hx COPD, Hx Pneumonia GI Medical History: Reports: Hx Colonoscopy Musculoskeletal Medical History: Reports Hx Arthritis Past Surgical History: Reports: Hx Adenoidectomy, Hx Appendectomy, Hx Tonsillectomy - Immunizations Hx Diphtheria, Pertussis, Tetanus Vaccination: Yes History of Pneumococcal Vaccine: Yes Review of Systems - Review of Systems Constitutional: No symptoms reported EENT: No symptoms reported Cardiovascular: See HPI, Chest pain - random 1 minute episodes, Other - elevated blood pressure Respiratory: No symptoms reported Gastrointestinal: No symptoms reported Genitourinary: No symptoms reported Male Genitourinary: No symptoms reported Musculoskeletal: No symptoms reported Skin: No symptoms reported Hematologic/Lymphatic: No symptoms reported Neurological/Psychological: No symptoms reported -: Yes All other systems reviewed and negative Physical Exam - Vital signs Vitals: Temp Pulse Resp BP Pulse Ox 98.8 F 89 16 155/62 H 98 02/12/20 14:35 02/12/20 14:35 02/12/20 14:35 02/12/20 14:35 02/12/20 14:35 - General General appearance: Appears well, Alert - HEENT Head: Normocephalic, Atraumatic Eyes: Normal Pupils: PERRL Notes: Hard of hearing. - Respiratory Respiratory status: No respiratory distress Chest status: Nontender Breath sounds: Normal Chest palpation: Normal - Cardiovascular Rhythm: Regular Heart sounds: Normal auscultation Murmur: No - Abdominal Inspection: Normal, Other - Soft Distension: No distension Bowel sounds: Normal Tenderness: Nontender - Extremities General upper extremity: Normal inspection, Normal ROM General lower extremity: Normal inspection, Normal ROM. No: Edema - Neurological Neuro grossly intact: Yes Cognition: Normal Orientation: AAOx4 [place] Coma Scale Eye Opening: Spontaneous [place] Coma Scale Verbal: Oriented Angeli Coma Scale Motor: Obeys Commands [place] Coma Scale Total: 15 Speech: Normal Motor strength normal: LUE, RUE, LLE, RLE Sensory: Normal - Psychological Associated symptoms: Normal affect, Normal mood - Skin Skin Temperature: Warm Skin Moisture: Dry Skin Color: Normal Course - Re-evaluation Re-evalutation: 02/12/20 18:05 MDM Pleasant 75 year old with asymptomatic htn is here for treatment. Known COPD, hard of hearing, hld. Referred from PCP after attempting to go to Urgent Care. Gets vague 1 minute or so of chest pain daily but clearly not exertional and no h/o heart disease. I feel it is reasonable for him to follow up rega rding this with his PCP. Also recovering from recent pneumonia so this in fact may be related. Certainly nontoxic here and no chest pain. - Vital Signs Vital signs: Temp Pulse Resp BP Pulse Ox 98.8 F 89 20 177/89 H 97 02/12/20 14:35 02/12/20 14:35 02/12/20 18:01 02/12/20 18:00 02/12/20 18:01 - Laboratory Result Diagrams: 02/12/20 15:00 02/12/20 15:00 Laboratory results interpreted by me: 02/12/20 02/12/20 15:00 15:00 RDW 15.5 H Sodium 136.2 L Creatinine 1.37 H Est GFR (MDRD) Non-Af 51 L Discharge - Discharge Clinical Impression: Hyperlipidemia Qualifiers: Hyperlipidemia type: unspecified Qualified Code(s): E78.5 - Hyperlipidemia, unspecified Hypertension Qualifiers: Hypertension type: unspecified Qualified Code(s): I10 - Essential (primary) hypertension Disposition: HOME, SELF-CARE Instructions: Beta Blockers ([facility]), High Blood Pressure ([facility]), High Blood Pressure, Requiring Treatment ([facility]), Hydrochlorothiazide ([facility]) Additional Instructions: Your blood pressure was elevated here. See your doctor in follow up. Take your medicine as directed. Please return here for chest pain, shortness of breath or other problems or concerns. Be careful of your salt intake. Keep it low. Increase the metoprolol (25 mg) to twice a day from once a day. Prescriptions: Metoprolol Tartrate [Lopressor 25 mg Tablet] 25 mg PO BID #60 tab Referrals: RODRIGUE LANGE PA [Primary Care Provider] - Follow up as needed I personally performed the services described in the documentation, reviewed and edited the documentation which was dictated to the scribe in my presence, and it accurately records my words and actions.
[2020-02-12 18:15] VITALS: BP 177/89
--- NOTE | 2020-02-12 19:48 | EKG REPORT ---
SEVERITY:- ABNORMAL ECG - SINUS RHYTHM LEFT BUNDLE BRANCH BLOCK : Confirmed by: Jonathan Quintanilla MD 12-Feb-2020 19:47:37
== END 2020-02-12 18:15 | disposition home or self-care (01) ==
LOC: ER 14:30
DX: I10 Essential (primary) hypertension (principal); E78.5 Hyperlipidemia, unspecified; R07.9 Chest pain, unspecified; J44.9 Chronic obstructive pulmonary disease, unspecified; Z79.899 Other long term (current) drug therapy; Z87.891 Personal history of nicotine dependence; Z87.01 Personal history of pneumonia (recurrent)
CPT/HCPCS: 93005; 99285; 36415; 85025; 80053; 81001; 71046; 93010; A9270